=== PATIENT | female | born 1955 | race Caucasian/White ===

== ENCOUNTER → 2016-12-15 | Outpatient (CLI) | payer MEDICAID ==
[~2016-12-15] MED LIST: ADENOSINE 103 MG in GIVE UN-DILUTED 0 ML IV ONE; ADENOSINE 90 MG/30 ML INJ IV ONE
== END | disposition home or self-care (01) ==
LOC: Rad HDHVI 10:05
PROVIDERS: ATTEND Internal Medicine Cardiovascular Disease
DX: I10 Essential (primary) hypertension (principal); E78.00 Pure hypercholesterolemia, unspecified; Z95.0 Presence of cardiac pacemaker
CPT/HCPCS: 78452; 93005; 96374; 96375; A9500; J0153

== ENCOUNTER → 2016-12-31 | Outpatient (CLI) | payer MEDICAID | END | disposition home or self-care (01) | LOC: Rad HDHVI 08:39 | PROVIDERS: ATTEND Internal Medicine Cardiovascular Disease | DX: I73.9 Peripheral vascular disease, unspecified (principal); L03.119 Cellulitis of unspecified part of limb | CPT/HCPCS: 93306; 93926 ==

== ENCOUNTER → 2017-09-29 | Outpatient (CLI) | payer MEDICAID ==
[~2017-09-29] MED LIST changes: -ADENOSINE 103 MG in GIVE UN-DILUTED 0 ML IV ONE; -ADENOSINE 90 MG/30 ML INJ IV ONE; +ATEN-60 PO; +ATOR20TA PO; +BUSP10TA90 PO; +CARB200T PO; +ESOM20CA PO; +FURO40TA PO; +POTA10TA51 PO
== END | disposition home or self-care (01) ==
LOC: Rad HDHVI 10:15
PROVIDERS: ATTEND Internal Medicine Cardiovascular Disease
DX: I50.9 Heart failure, unspecified (principal)
CPT/HCPCS: 93306

== ENCOUNTER 2017-10-20 11:43 | Inpatient (IN) | payer MEDICAID ==
[~2017-10-20] VITALS: Ht 160 cm; Wt 121.0 kg
[2017-10-20 14:01] LABS: Basophils # (auto) 0.1 uL; Basophils % (auto) 1.1 % (0.0-2.0); Eosinophils # (auto) 0.3 uL; Hematocrit 42.7 % (36.0-46.0); Hemoglobin 13.9 g/dL (12.2-16.2); Lymphocytes # (auto) 2.3 uL; Lymphocytes % (auto) 22.2 % (10.0-50.0); Mean Corpuscular Hgb Conc. 32.5 g/dL (32.0-36.0); Mean Corpuscular Volume 92.1 fL (80.0-100.0); Monocytes % (auto) 9.5 % (0.0-12.0); Neutrophils # (auto) 6.7 uL; Neutrophils % (auto) 64.2 % (37.0-80.0); Nucleated Red Blood Cells % 0.1 %; Platelet Count (auto) 337 10^3/uL (140-450); Red Blood Cells 4.63 10^6/uL (4.0-5.20); Red Cell Distribution Width 15.3 % (11.8-14.3); White Blood Cell 10.5 10^3/uL (4.4-10.8)
[2017-10-20 14:13] LABS: Alanine Aminotransferase 21 U/L (13-56); Albumin 3.2 g/dL (3.4-5.0); Anion Gap 9 (5-15); Aspartate Aminotransferase 11 U/L (15-37); BUN/Creatinine Ratio 21.6; Blood Urea Nitrogen 27 mg/dL (7-18); Calcium 8.8 mg/dL (8.5-10.1); Carbon Dioxide 28 mmol/L (21-32); Chloride 105 mmol/L (98-107); GFR African American 55 mL/min; GFR Non-African American 46 mL/min; Glucose 96 mg/dL (74-106); Magnesium 2.4 mg/dL (1.6-2.6); Potassium 4.7 mmol/L (3.5-5.1); Sodium 142 mmol/L (136-145)
[2017-10-20 14:16] LABS: Alkaline Phosphatase 110 U/L (45-117); Bilirubin, Total 0.2 mg/dL (0.2-1.0); Total Protein 8.1 g/dL (6.4-8.2)
[2017-10-20] MEDS ORDERED: PIPERACILLIN-TAZOB 3.375GM 50 ML IV ONE (15:00)
[2017-10-20] MEDS ORDERED: CLINDAMYCIN 900MG IV 50 ML IV ONE (15:00)
[2017-10-20] MEDS ORDERED: FUROSEMIDE 40 MG/4 ML VIAL IV ONE (15:00)
[2017-10-20 15:22] LABS: Urine Bacteria MOD /hpf (None Seen); Urine Blood Negative /uL (Negative); Urine Mucus FEW (None Seen); Urine Specific Gravity 1.026 (1.001-1.035); Urine WBC 1 /hpf (0 - 5)
[2017-10-20] MEDS ORDERED: NITROGLYCERIN 0.4 MG SL TAB SL PRN (15:45)
[2017-10-20] MEDS ORDERED: MORPHINE SULFATE 4 MG/ML SYR/VIAL IV PRN ×2 (15:45)
[2017-10-20] MEDS ORDERED: PANTOPRAZOLE 40 MG TAB PO ONE ×2 (16:00→16:24)
[2017-10-20] MEDS: ONDANSETRON HCL 4 MG/2 ML VIAL IV PRN (16:12)
[2017-10-20] MEDS: FUROSEMIDE 40 MG/4 ML VIAL IV SCH (16:15)
[2017-10-20 21:16] VITALS: BP 84/47
[2017-10-20] MEDS ORDERED: PNEUMOCOCCAL VACC POLYS 25 MCG/0.5 ML VIAL IM ONE (21:30)
[2017-10-20] MEDS: ceFAZolin 1GM/50ML 50 ML IV SCH (21:37)
[2017-10-20] MEDS: busPIRone HCL 10 MG TAB PO SCH (21:38)
[2017-10-20] MEDS: POTASSIUM CHL 20 Meq TABLET PO SCH (21:38)
[2017-10-20] MEDS: carBAMazepine 200 MG TAB PO SCH (21:38)
[2017-10-20 22:00] VITALS: BP 84/47
[2017-10-20] MEDS ORDERED: busPIRone HCL 10 MG TAB PO SCH (22:00)
[2017-10-20] MEDS ORDERED: ATOR20TA PO (23:09)
[2017-10-20] MEDS ORDERED: POTA10TA51 PO (23:09)
[2017-10-20] MEDS ORDERED: ESOM20CA PO (23:09)
[2017-10-20] MEDS ORDERED: ATEN-60 PO (23:09)
[2017-10-20] MEDS ORDERED: CARB200T PO (23:09)
[2017-10-20] MEDS ORDERED: BUSP10TA90 PO (23:09)
[2017-10-20] MEDS ORDERED: FURO40TA PO (23:09)
[2017-10-21] MEDS: ceFAZolin 1GM/50ML 50 ML IV SCH ×3 (05:44→22:00)
[2017-10-21] MEDS: busPIRone HCL 10 MG TAB PO SCH ×3 (05:45→22:04)
[2017-10-21] MEDS: carBAMazepine 200 MG TAB PO SCH ×3 (05:45→22:05)
[2017-10-21] MEDS: FUROSEMIDE 40 MG/4 ML VIAL IV SCH ×2 (05:47→18:40)
[2017-10-21 05:49] VITALS: BP 113/59
[2017-10-21 06:42] LABS: Calcium 8.7 mg/dL (8.5-10.1); Potassium 4.5 mmol/L (3.5-5.1)
[2017-10-21 06:49] LABS: Cholesterol 151 mg/dL (< 200); HDL Cholesterol 62 mg/dL (40-59); LDL Cholesterol 79 mg/dL (< 100); Triglycerides 150 mg/dL (< 150)
[2017-10-21 09:00] VITALS: BP 97/62
[2017-10-21] MEDS: POTASSIUM CHL 20 Meq TABLET PO SCH ×2 (10:18→22:05)
[2017-10-21] MEDS: PANTOPRAZOLE 40 MG TAB PO SCH (10:18)
[2017-10-21] MEDS: ENOXAPARIN SOD 40 MG/0.4 ML SYRINGE SC SCH (10:20)
[2017-10-21 12:54] VITALS: BP 112/69
[2017-10-21 17:01] VITALS: BP 130/63
[2017-10-21] MEDS: FUROSEMIDE INJECTION 500 MG in D5W 5% 450 ML IV SCH (21:00)
[2017-10-21 22:00] VITALS: BP 137/70
[2017-10-21] MEDS: ONDANSETRON HCL 4 MG/2 ML VIAL IV PRN (22:04)
[2017-10-21 23:15] VITALS: BP 125/74
[2017-10-22] VITALS (9 sets, daily range): BP systolic 104–127; BP diastolic 63–76
[2017-10-22] MEDS: ceFAZolin 1GM/50ML 50 ML IV SCH ×3 (06:04→21:39)
[2017-10-22] MEDS: carBAMazepine 200 MG TAB PO SCH ×3 (06:06→21:40)
[2017-10-22] MEDS: busPIRone HCL 10 MG TAB PO SCH ×3 (06:06→21:40)
[2017-10-22] MEDS: PANTOPRAZOLE 40 MG TAB PO SCH (06:11)
[2017-10-22 06:44] LABS: BUN/Creatinine Ratio 29.7; Calcium 9.1 mg/dL (8.5-10.1); Potassium 3.6 mmol/L (3.5-5.1)
[2017-10-22] MEDS: ENOXAPARIN SOD 40 MG/0.4 ML SYRINGE SC SCH (09:42)
[2017-10-22] MEDS: POTASSIUM CHL 20 Meq TABLET PO SCH ×2 (09:42→21:40)
[2017-10-22] MEDS: FUROSEMIDE INJECTION 500 MG in D5W 5% 450 ML IV SCH (19:30)
[2017-10-22] MEDS: ASCORBIC ACID 500 MG TAB PO SCH (21:39)
[2017-10-23 04:51] VITALS: BP 116/67
[2017-10-23] MEDS: ceFAZolin 1GM/50ML 50 ML IV SCH ×3 (05:56→20:12)
[2017-10-23] MEDS: busPIRone HCL 10 MG TAB PO SCH ×3 (05:57→20:13)
[2017-10-23] MEDS: carBAMazepine 200 MG TAB PO SCH ×3 (05:57→20:13)
[2017-10-23] MEDS: PANTOPRAZOLE 40 MG TAB PO SCH (06:39)
[2017-10-23 08:14] VITALS: BP 112/78
[2017-10-23] MEDS: MULTIPLE VITAMIN TAB PO SCH (10:19)
[2017-10-23] MEDS: POTASSIUM CHL 20 Meq TABLET PO SCH ×2 (10:20→20:13)
[2017-10-23] MEDS: ASCORBIC ACID 500 MG TAB PO SCH ×2 (10:20→20:13)
[2017-10-23] MEDS: ENOXAPARIN SOD 40 MG/0.4 ML SYRINGE SC SCH (10:20)
[2017-10-23 11:43] VITALS: BP 125/82
[2017-10-23] MEDS: FUROSEMIDE INJECTION 500 MG in D5W 5% 450 ML IV SCH (15:30)
[2017-10-23 17:06] VITALS: BP 127/72
[2017-10-23] MEDS ORDERED: FUROSEMIDE 40 MG/4 ML VIAL IV SCH (18:00)
[2017-10-23] MEDS: HYDROcodone-ACET 5/325MG TAB PO PRN (21:04)
[2017-10-23 21:57] VITALS: BP 125/84
[2017-10-24] MEDS: HYDROcodone-ACET 5/325MG TAB PO PRN (04:22)
[2017-10-24] MEDS: ceFAZolin 1GM/50ML 50 ML IV SCH ×3 (04:23→21:44)
[2017-10-24 05:19] VITALS: BP 129/72
[2017-10-24] MEDS: busPIRone HCL 10 MG TAB PO SCH ×3 (05:51→21:44)
[2017-10-24] MEDS: PANTOPRAZOLE 40 MG TAB PO SCH (05:52)
[2017-10-24] MEDS: carBAMazepine 200 MG TAB PO SCH ×3 (05:52→21:44)
[2017-10-24 06:21] LABS: BUN/Creatinine Ratio 30.2; Calcium 8.6 mg/dL (8.5-10.1); Potassium 3.3 mmol/L (3.5-5.1)
[2017-10-24 09:00] VITALS: BP 122/66
[2017-10-24] MEDS: POTASSIUM CHL 20 Meq TABLET PO SCH ×2 (09:58→21:44)
[2017-10-24] MEDS: ENOXAPARIN SOD 40 MG/0.4 ML SYRINGE SC SCH (09:58)
[2017-10-24] MEDS: MULTIPLE VITAMIN TAB PO SCH (09:58)
[2017-10-24] MEDS: ASCORBIC ACID 500 MG TAB PO SCH ×2 (09:58→21:44)
[2017-10-24 13:00] VITALS: BP 124/73
[2017-10-24] MEDS ORDERED: POTASSIUM CHL 20 Meq TABLET PO ONE (14:15)
[2017-10-24] MEDS: FUROSEMIDE INJECTION 500 MG in D5W 5% 450 ML IV SCH (16:02)
[2017-10-24 17:00] VITALS: BP 125/50
[2017-10-24 20:00] VITALS: BP 106/48
[2017-10-24 21:48] VITALS: BP 106/48
[2017-10-25] MEDS: HYDROcodone-ACET 5/325MG TAB PO PRN (00:19)
[2017-10-25 05:27] VITALS: BP 123/83
[2017-10-25 05:42] LABS: BUN/Creatinine Ratio 34.6; Calcium 8.4 mg/dL (8.5-10.1); Potassium 4.1 mmol/L (3.5-5.1)
[2017-10-25] MEDS: ceFAZolin 1GM/50ML 50 ML IV SCH ×3 (05:43→21:23)
[2017-10-25] MEDS: carBAMazepine 200 MG TAB PO SCH ×3 (05:43→21:24)
[2017-10-25] MEDS: busPIRone HCL 10 MG TAB PO SCH ×3 (05:44→21:23)
[2017-10-25 09:00] VITALS: BP 114/49
[2017-10-25 09:16] LABS: Basophils # (auto) 0.1 uL; Eosinophils # (auto) 0.4 uL; Eosinophils % (auto) 4.7 % (0.0-7.0); Hematocrit 41.4 % (36.0-46.0); Hemoglobin 13.8 g/dL (12.2-16.2); Lymphocytes # (auto) 2.1 uL; Lymphocytes % (auto) 21.6 % (10.0-50.0); Mean Corpuscular Hemoglobin 30.2 pg (28.0-32.0); Mean Corpuscular Hgb Conc. 33.5 g/dL (32.0-36.0); Mean Corpuscular Volume 90.4 fL (80.0-100.0); Monocytes # (auto) 1.4 uL; Monocytes % (auto) 14.7 % (0.0-12.0); Neutrophils # (auto) 5.5 uL; Nucleated Red Blood Cells % 0.6 %; Platelet Count (auto) 383 10^3/uL (140-450); Red Blood Cells 4.58 10^6/uL (4.0-5.20); Red Cell Distribution Width 15.2 % (11.8-14.3); White Blood Cell 9.5 10^3/uL (4.4-10.8)
[2017-10-25] MEDS: MULTIPLE VITAMIN TAB PO SCH (10:42)
[2017-10-25] MEDS: POTASSIUM CHL 20 Meq TABLET PO SCH ×2 (10:42→21:23)
[2017-10-25] MEDS: ASCORBIC ACID 500 MG TAB PO SCH ×2 (10:42→21:24)
[2017-10-25] MEDS: ENOXAPARIN SOD 40 MG/0.4 ML SYRINGE SC SCH (10:42)
[2017-10-25] MEDS: PANTOPRAZOLE 40 MG TAB PO SCH (10:42)
[2017-10-25 13:00] VITALS: BP 135/70
[2017-10-25 17:00] VITALS: BP_SYST 127; BP_SYST 83; BP_DIAS 60; BP_DIAS 77
[2017-10-25] MEDS: FUROSEMIDE INJECTION 500 MG in D5W 5% 450 ML IV SCH (18:09)
[2017-10-25 20:00] VITALS: BP 137/61
[2017-10-25 22:00] VITALS: BP 137/61
[2017-10-26 05:19] VITALS: BP 107/53
[2017-10-26] MEDS: ceFAZolin 1GM/50ML 50 ML IV SCH ×3 (06:15→21:19)
[2017-10-26] MEDS: carBAMazepine 200 MG TAB PO SCH ×3 (06:15→21:18)
[2017-10-26] MEDS: busPIRone HCL 10 MG TAB PO SCH ×3 (06:16→21:19)
[2017-10-26 07:55] LABS: BUN/Creatinine Ratio 33.1; Calcium 8.5 mg/dL (8.5-10.1)
[2017-10-26 09:00] VITALS: BP 124/57
[2017-10-26] MEDS: METOLAZONE 5 MG TAB PO SCH (11:30)
[2017-10-26] MEDS: ENOXAPARIN SOD 40 MG/0.4 ML SYRINGE SC SCH (11:30)
[2017-10-26] MEDS: POTASSIUM CHL 20 Meq TABLET PO SCH ×2 (11:30→21:19)
[2017-10-26] MEDS: ASCORBIC ACID 500 MG TAB PO SCH ×2 (11:30→21:18)
[2017-10-26] MEDS: PANTOPRAZOLE 40 MG TAB PO SCH (11:30)
[2017-10-26] MEDS: MULTIPLE VITAMIN TAB PO SCH (11:30)
[2017-10-26 13:00] VITALS: BP 142/70
[2017-10-26 17:00] VITALS: BP 106/48
[2017-10-26] MEDS ORDERED: POTASSIUM CHL 20 Meq TABLET PO ONE (19:00)
[2017-10-26] MEDS: FUROSEMIDE INJECTION 500 MG in D5W 5% 450 ML IV SCH (19:30)
[2017-10-26 20:00] VITALS: BP 126/36
[2017-10-26 22:00] VITALS: BP_SYST 126; BP_DIAS 36; BP_DIAS 96
[2017-10-27] MEDS: ceFAZolin 1GM/50ML 50 ML IV SCH (05:29)
[2017-10-27] MEDS: busPIRone HCL 10 MG TAB PO SCH (05:30)
[2017-10-27] MEDS: carBAMazepine 200 MG TAB PO SCH (05:30)
[2017-10-27 05:39] VITALS: BP 127/83
[2017-10-27 05:50] LABS: Calcium 9.1 mg/dL (8.5-10.1)
[2017-10-27 05:54] LABS: BUN/Creatinine Ratio 32.9
[2017-10-27] MEDS ORDERED: POTASSIUM CHL 20 Meq TABLET PO ONE ×3 (07:00→10:00)
[2017-10-27 07:54] VITALS: BP 92/42
[2017-10-27 09:25] LABS: BUN/Creatinine Ratio 29.1; Calcium 9.7 mg/dL (8.5-10.1); Potassium 3.2 mmol/L (3.5-5.1)
[2017-10-27] MEDS: METOLAZONE 5 MG TAB PO SCH (10:00)
[2017-10-27] MEDS: PANTOPRAZOLE 40 MG TAB PO SCH (10:00)
[2017-10-27] MEDS: ENOXAPARIN SOD 40 MG/0.4 ML SYRINGE SC SCH (10:00)
[2017-10-27] MEDS: POTASSIUM CHL 20 Meq TABLET PO SCH (10:29)
[2017-10-27] MEDS: ASCORBIC ACID 500 MG TAB PO SCH (10:37)
[2017-10-27] MEDS: MULTIPLE VITAMIN TAB PO SCH (10:37)
[2017-10-27 11:38] VITALS: BP 111/80
== END 2017-10-27 16:16 | disposition home or self-care (01) | DRG 194 ==
LOC: ER 11:43 → TELE 11:44 → TELE-WESTW 20:50
PROVIDERS: ADMIT Internal Medicine; ATTEND Internal Medicine Cardiovascular Disease
DX: I13.0 Hypertensive heart and chronic kidney disease with heart failure and stage 1 through stage 4 chronic kidney disease, or unspecified chronic kidney disease (principal); I27.81 Cor pulmonale (chronic); L03.115 Cellulitis of right lower limb; N18.3 Chronic kidney disease, stage 3 (moderate); L03.116 Cellulitis of left lower limb; L97.909 Non-pressure chronic ulcer of unspecified part of unspecified lower leg with unspecified severity; E66.01 Morbid (severe) obesity due to excess calories; I50.33 Acute on chronic diastolic (congestive) heart failure; K21.9 Gastro-esophageal reflux disease without esophagitis; F31.9 Bipolar disorder, unspecified; I50.810 Right heart failure, unspecified; E87.6 Hypokalemia; I87.2 Venous insufficiency (chronic) (peripheral); Z60.2 Problems related to living alone; G47.30 Sleep apnea, unspecified; Z23 Encounter for immunization; Z68.42 Body mass index [BMI] 45.0-49.9, adult; Z95.0 Presence of cardiac pacemaker; Z88.2 Allergy status to sulfonamides; Z90.49 Acquired absence of other specified parts of digestive tract
CPT/HCPCS: 36415; 71046; 80048; 80053; 80061; 81001; 83605; 83735; 84132; 84443; 84484; 85025; 87040; 93005; 93970; 96365; 96367; 96375; J0690; J2405; J2543; J3490

== ENCOUNTER → 2018-06-03 | Outpatient (CLI) | payer MEDICAID | END | disposition home or self-care (01) | LOC: Rad HDHVI 10:49 | PROVIDERS: ATTEND Internal Medicine Cardiovascular Disease | DX: I07.1 Rheumatic tricuspid insufficiency (principal); I10 Essential (primary) hypertension; I95.9 Hypotension, unspecified; R06.02 Shortness of breath; Z88.2 Allergy status to sulfonamides | CPT/HCPCS: 93306 ==

== ENCOUNTER → 2018-07-22 | Outpatient (CLI) | payer MEDICARE, MEDICAID ==
[2018-07-22] VITALS (12 sets, daily range): BP systolic 95–126; BP diastolic 41–78
[~2018-07-22] VITALS: Ht 165.1 cm; Wt 123.5 kg
[~2018-07-22] MED LIST changes: +DOBUTamine 1000MCG/ML 250 ML IV ONE; +FUROSEMIDE 100 MG/10ML VIAL IV ONE; +FUROSEMIDE INJECTION 10 ML ONE; +KETOROLAC TROMETH 30 MG/ML 1ML VIAL IM ONE; +KETOROLAC TROMETH 30 MG/ML 1ML VIAL IV ONE; +KETOROLAC TROMETH 60MG/2ML VIAL IM ONE; +POTASSIUM CHL 10 Meq TABLET PO ONE; +POTASSIUM CHL 20 Meq TABLET PO ONE
[2018-07-22 11:57] LABS: Basophils # (auto) 0.1 uL; Basophils % (auto) 0.7 % (0.0-2.0); Eosinophils # (auto) 0.3 uL; Hematocrit 40.1 % (36.0-46.0); Hemoglobin 13.1 g/dL (12.2-16.2); Lymphocytes # (auto) 2.1 uL; Lymphocytes % (auto) 21.2 % (10.0-50.0); Mean Corpuscular Hgb Conc. 32.6 g/dL (32.0-36.0); Mean Corpuscular Volume 95.1 fL (80.0-100.0); Monocytes # (auto) 0.8 uL; Monocytes % (auto) 7.7 % (0.0-12.0); Neutrophils # (auto) 6.7 uL; Neutrophils % (auto) 67.4 % (37.0-80.0); Nucleated Red Blood Cells % 0.1 %; Platelet Count (auto) 352 10^3/uL (140-450); Red Blood Cells 4.22 10^6/uL (4.0-5.20); Red Cell Distribution Width 14.4 % (11.8-14.3); White Blood Cell 9.9 10^3/uL (4.4-10.8)
[2018-07-22 12:12] LABS: Albumin 3.1 g/dL (3.4-5.0); Calcium 8.5 mg/dL (8.5-10.1); Potassium 4.6 mmol/L (3.5-5.1)
[2018-07-22 12:16] LABS: BUN/Creatinine Ratio 18.4; Bilirubin, Total 0.3 mg/dL (0.2-1.0); Total Protein 8.7 g/dL (6.4-8.2)
== END | disposition home or self-care (01) ==
LOC: CHF HDHVI 09:19
PROVIDERS: ATTEND Internal Medicine Cardiovascular Disease
DX: I11.0 Hypertensive heart disease with heart failure (principal); I50.23 Acute on chronic systolic (congestive) heart failure; D51.9 Vitamin B12 deficiency anemia, unspecified; E83.40 Disorders of magnesium metabolism, unspecified; I07.1 Rheumatic tricuspid insufficiency; Z88.2 Allergy status to sulfonamides
CPT/HCPCS: 36415; 80053; 82306; 83735; 83880; 85025; 93701; 94618; 96365; 96366; 96372; 96375; G0463; J1250; J1885; J1940

== ENCOUNTER → 2018-07-29 | Outpatient (CLI) | payer MEDICARE, MEDICAID ==
[2018-07-29] VITALS (8 sets, daily range): BP systolic 91–130; BP diastolic 43–106
[~2018-07-29] MED LIST changes: -KETOROLAC TROMETH 30 MG/ML 1ML VIAL IM ONE; -KETOROLAC TROMETH 30 MG/ML 1ML VIAL IV ONE; -KETOROLAC TROMETH 60MG/2ML VIAL IM ONE
== END | disposition home or self-care (01) ==
LOC: CHF HDHVI 09:10
PROVIDERS: ATTEND Internal Medicine Cardiovascular Disease
DX: S80.822A Blister (nonthermal), left lower leg, initial encounter (principal); I25.10 Atherosclerotic heart disease of native coronary artery without angina pectoris; I13.0 Hypertensive heart and chronic kidney disease with heart failure and stage 1 through stage 4 chronic kidney disease, or unspecified chronic kidney disease; E11.22 Type 2 diabetes mellitus with diabetic chronic kidney disease; I50.42 Chronic combined systolic (congestive) and diastolic (congestive) heart failure; N18.3 Chronic kidney disease, stage 3 (moderate); E11.51 Type 2 diabetes mellitus with diabetic peripheral angiopathy without gangrene; F31.9 Bipolar disorder, unspecified; K21.9 Gastro-esophageal reflux disease without esophagitis; E78.00 Pure hypercholesterolemia, unspecified; I87.2 Venous insufficiency (chronic) (peripheral); Y93.89 Activity, other specified; Y92.89 Other specified places as the place of occurrence of the external cause; X58.XXXA Exposure to other specified factors, initial encounter
CPT/HCPCS: 96365; 96366; 96375; 96376; G0463; J1250; J1940

== ENCOUNTER → 2018-08-02 | Outpatient (CLI) | payer MEDICARE, MEDICAID ==
[~2018-08-02] MED LIST changes: -POTASSIUM CHL 10 Meq TABLET PO ONE
[2018-08-02 11:45] VITALS: BP 88/55
[2018-08-02 12:00] VITALS: BP 101/60
[2018-08-02 14:30] VITALS: BP 129/61
== END | disposition home or self-care (01) ==
LOC: CHF HDHVI 10:52
PROVIDERS: ATTEND Internal Medicine Cardiovascular Disease
DX: S80.822A Blister (nonthermal), left lower leg, initial encounter (principal); I25.10 Atherosclerotic heart disease of native coronary artery without angina pectoris; I13.0 Hypertensive heart and chronic kidney disease with heart failure and stage 1 through stage 4 chronic kidney disease, or unspecified chronic kidney disease; E11.22 Type 2 diabetes mellitus with diabetic chronic kidney disease; N18.3 Chronic kidney disease, stage 3 (moderate); I50.42 Chronic combined systolic (congestive) and diastolic (congestive) heart failure; G47.30 Sleep apnea, unspecified; E11.51 Type 2 diabetes mellitus with diabetic peripheral angiopathy without gangrene; E66.01 Morbid (severe) obesity due to excess calories; K21.9 Gastro-esophageal reflux disease without esophagitis; E78.00 Pure hypercholesterolemia, unspecified; F31.9 Bipolar disorder, unspecified; X58.XXXA Exposure to other specified factors, initial encounter; Y93.89 Activity, other specified; Y92.89 Other specified places as the place of occurrence of the external cause; Y99.8 Other external cause status; Z95.0 Presence of cardiac pacemaker
CPT/HCPCS: 96365; 96366; 96375; 96376; G0463; J1250; J1940

== ENCOUNTER → 2018-08-12 | Outpatient (CLI) | payer MEDICARE, MEDICAID ==
[2018-08-12] VITALS (7 sets, daily range): BP systolic 97–118; BP diastolic 40–60
[~2018-08-12] MED LIST changes: +ALBUTEROL SULF 2.5 MG/0.5ML(0.5%) NEB SOLN NEB ONE; +ALBUTEROL SULF 2.5 MG/0.5ML(0.5%) NEB SOLN ONE; -FUROSEMIDE 100 MG/10ML VIAL IV ONE; +FUROSEMIDE 40 MG/4 ML VIAL IV ONE; -POTASSIUM CHL 20 Meq TABLET PO ONE
[2018-08-12 12:32] LABS: Basophils # (auto) 0 uL; Basophils % (auto) 0.5 % (0.0-2.0); Eosinophils # (auto) 0.5 uL; Hematocrit 41.2 % (36.0-46.0); Hemoglobin 13.4 g/dL (12.2-16.2); Lymphocytes # (auto) 1.8 uL; Lymphocytes % (auto) 18.9 % (10.0-50.0); Mean Corpuscular Hemoglobin 31.2 pg (28.0-32.0); Mean Corpuscular Hgb Conc. 32.6 g/dL (32.0-36.0); Mean Corpuscular Volume 95.8 fL (80.0-100.0); Monocytes # (auto) 0.9 uL; Monocytes % (auto) 9.3 % (0.0-12.0); Neutrophils # (auto) 6.2 uL; Neutrophils % (auto) 66.3 % (37.0-80.0); Nucleated Red Blood Cells % 0.2 %; Platelet Count (auto) 308 10^3/uL (140-450); Red Blood Cells 4.31 10^6/uL (4.0-5.20); Red Cell Distribution Width 14.2 % (11.8-14.3); White Blood Cell 9.4 10^3/uL (4.4-10.8)
[2018-08-12 12:48] LABS: BUN/Creatinine Ratio 16.8; Calcium 8.5 mg/dL (8.5-10.1); Magnesium 2.2 mg/dL (1.6-2.6); Potassium 4.1 mmol/L (3.5-5.1)
== END | disposition home or self-care (01) ==
LOC: CHF HDHVI 09:20
PROVIDERS: ATTEND Internal Medicine Cardiovascular Disease
DX: I13.0 Hypertensive heart and chronic kidney disease with heart failure and stage 1 through stage 4 chronic kidney disease, or unspecified chronic kidney disease (principal); I50.42 Chronic combined systolic (congestive) and diastolic (congestive) heart failure; I50.810 Right heart failure, unspecified; E11.22 Type 2 diabetes mellitus with diabetic chronic kidney disease; E11.51 Type 2 diabetes mellitus with diabetic peripheral angiopathy without gangrene; N18.3 Chronic kidney disease, stage 3 (moderate); I25.10 Atherosclerotic heart disease of native coronary artery without angina pectoris; E78.00 Pure hypercholesterolemia, unspecified; E66.01 Morbid (severe) obesity due to excess calories; G47.30 Sleep apnea, unspecified; I07.1 Rheumatic tricuspid insufficiency; I89.0 Lymphedema, not elsewhere classified; I87.2 Venous insufficiency (chronic) (peripheral); K21.9 Gastro-esophageal reflux disease without esophagitis; D64.9 Anemia, unspecified; E55.9 Vitamin D deficiency, unspecified; F31.9 Bipolar disorder, unspecified; Z95.0 Presence of cardiac pacemaker
CPT/HCPCS: 36415; 80048; 82306; 83735; 85025; 94640; 96365; 96366; 96375; G0463; J1250; J1940; J7611

== ENCOUNTER → 2018-08-19 | Outpatient (CLI) | payer MEDICARE, MEDICAID ==
[~2018-08-19] VITALS: Ht 30.5 cm; Wt 122.0 kg
[~2018-08-19] MED LIST changes: -ALBUTEROL SULF 2.5 MG/0.5ML(0.5%) NEB SOLN NEB ONE; -ALBUTEROL SULF 2.5 MG/0.5ML(0.5%) NEB SOLN ONE; +FUROSEMIDE 20 MG/2 ML VIAL IV ONE; +FUROSEMIDE 20 MG/2 ML VIAL ONE; -FUROSEMIDE 40 MG/4 ML VIAL IV ONE; +FUROSEMIDE 40 MG/4 ML VIAL ONE; -FUROSEMIDE INJECTION 10 ML ONE; +POTASSIUM CHL 10 Meq TABLET PO ONE
[2018-08-19 09:45] VITALS: BP 125/67
[2018-08-19 11:00] VITALS: BP 98/44
[2018-08-19 11:30] VITALS: BP 101/56
[2018-08-19 12:00] VITALS: BP 117/58
[2018-08-19 12:20] LABS: Basophils # (auto) 0.1 uL; Basophils % (auto) 0.7 % (0.0-2.0); Eosinophils # (auto) 0.3 uL; Hematocrit 41.4 % (36.0-46.0); Hemoglobin 13.6 g/dL (12.2-16.2); Lymphocytes # (auto) 2.1 uL; Lymphocytes % (auto) 20.6 % (10.0-50.0); Mean Corpuscular Hemoglobin 31.3 pg (28.0-32.0); Mean Corpuscular Hgb Conc. 32.9 g/dL (32.0-36.0); Mean Corpuscular Volume 95.3 fL (80.0-100.0); Monocytes # (auto) 1.2 uL; Monocytes % (auto) 11.7 % (0.0-12.0); Neutrophils # (auto) 6.5 uL; Nucleated Red Blood Cells % 0.4 %; Platelet Count (auto) 311 10^3/uL (140-450); Red Blood Cells 4.34 10^6/uL (4.0-5.20); Red Cell Distribution Width 13.9 % (11.8-14.3); White Blood Cell 10.2 10^3/uL (4.4-10.8)
[2018-08-19 12:30] VITALS: BP 97/51
[2018-08-19 12:40] VITALS: BP 97/51
[2018-08-19 12:41] LABS: BUN/Creatinine Ratio 27.4
== END | disposition home or self-care (01) ==
LOC: CHF HDHVI 09:32
PROVIDERS: ATTEND Internal Medicine Cardiovascular Disease
DX: I13.0 Hypertensive heart and chronic kidney disease with heart failure and stage 1 through stage 4 chronic kidney disease, or unspecified chronic kidney disease (principal); I50.42 Chronic combined systolic (congestive) and diastolic (congestive) heart failure; I50.810 Right heart failure, unspecified; E11.22 Type 2 diabetes mellitus with diabetic chronic kidney disease; E11.51 Type 2 diabetes mellitus with diabetic peripheral angiopathy without gangrene; N18.3 Chronic kidney disease, stage 3 (moderate); I49.5 Sick sinus syndrome; I25.10 Atherosclerotic heart disease of native coronary artery without angina pectoris; E78.00 Pure hypercholesterolemia, unspecified; I27.81 Cor pulmonale (chronic); I87.2 Venous insufficiency (chronic) (peripheral); G47.30 Sleep apnea, unspecified; I07.1 Rheumatic tricuspid insufficiency; E66.01 Morbid (severe) obesity due to excess calories; K21.9 Gastro-esophageal reflux disease without esophagitis; D64.9 Anemia, unspecified; F31.9 Bipolar disorder, unspecified; Z90.49 Acquired absence of other specified parts of digestive tract; Z95.0 Presence of cardiac pacemaker
CPT/HCPCS: 36415; 80048; 83880; 85025; 96365; 96366; 96375; G0463; J1250; J1940

== ENCOUNTER → 2018-08-26 | Outpatient (CLI) | payer MEDICARE, MEDICAID ==
[~2018-08-26] MED LIST changes: -FUROSEMIDE 20 MG/2 ML VIAL IV ONE; +FUROSEMIDE 20 MG/2 ML VIAL IV SCH; +POTASSIUM CHL 20 Meq TABLET PO ONE
[2018-08-26 10:15] VITALS: BP 139/67
[2018-08-26 10:30] VITALS: BP 119/52
[2018-08-26 10:45] VITALS: BP 114/48
[2018-08-26 11:45] VITALS: BP 134/78
== END | disposition home or self-care (01) ==
LOC: CHF HDHVI 09:31
PROVIDERS: ATTEND Internal Medicine Cardiovascular Disease
DX: I13.0 Hypertensive heart and chronic kidney disease with heart failure and stage 1 through stage 4 chronic kidney disease, or unspecified chronic kidney disease (principal); E11.22 Type 2 diabetes mellitus with diabetic chronic kidney disease; E11.51 Type 2 diabetes mellitus with diabetic peripheral angiopathy without gangrene; N18.3 Chronic kidney disease, stage 3 (moderate); I50.42 Chronic combined systolic (congestive) and diastolic (congestive) heart failure; I25.10 Atherosclerotic heart disease of native coronary artery without angina pectoris; F31.9 Bipolar disorder, unspecified; E66.01 Morbid (severe) obesity due to excess calories; E78.00 Pure hypercholesterolemia, unspecified; K21.9 Gastro-esophageal reflux disease without esophagitis; Z95.0 Presence of cardiac pacemaker; Z90.49 Acquired absence of other specified parts of digestive tract
CPT/HCPCS: 96365; 96366; 96375; G0463; J1250; J1940

== ENCOUNTER → 2018-09-02 | Outpatient (CLI) | payer MEDICARE, MEDICAID ==
[2018-09-02] VITALS (8 sets, daily range): BP systolic 90–119; BP diastolic 36–57
[~2018-09-02] MED LIST changes: +FUROSEMIDE 20 MG/2 ML VIAL IV ONE; -FUROSEMIDE 20 MG/2 ML VIAL IV SCH
--- NOTE | 2018-09-02 09:20 | NUR ---
CHF PT TO CHF CLINIC FOR MD LI ORDERED DOBUTAMINE THERAPY.
--- NOTE | 2018-09-02 09:30 | NUR ---
CHF IV insertion IV access obtained, via clean sterile technique by inserting 22 gauge catheter at after attempt(s). IV secured properly. No trauma to site. Patient tolerated procedure well.Clinic Provider Clinic Provider DR. LI, pt with new orders received and carried out. DRAW BNP, BUN,CREAT, K, MAG. Dobutamine gtt started at {4}mcg/kg/hr per MD order.
--- NOTE | 2018-09-02 11:55 | NUR ---
LASIX IVP ADMINISTERED. PT HAS BEEN TOLERATING IV DOBUTAMINE WELL. SHE REQUESTS TO STOP TREATMENT/INFUSION. DISCUSSED OPTIONS AND NEED FOR HEALTH INTERVENTION, ENCOURAGED TO COMPLETE INTERVENTION ORDERED BY THE PHYSICIAN. REVIEWED STATUS WITH PATIENT. SHE REBUFFS AGAINST SUGGESTION, BUT DOES AGREEE THAT SHE NEEDS HEALTH INTERVENTION. PT AGREED TO WAIT UNTIL HER RIDE ARRIVES BEFORE TREATMENT IS COMPLETED VS OBTAINED. DIET REVIEW COMPLERTED WITH ALIE
== END | disposition home or self-care (01) ==
LOC: CHF HDHVI 09:30
PROVIDERS: ATTEND Internal Medicine Cardiovascular Disease
DX: I13.0 Hypertensive heart and chronic kidney disease with heart failure and stage 1 through stage 4 chronic kidney disease, or unspecified chronic kidney disease (principal); I50.42 Chronic combined systolic (congestive) and diastolic (congestive) heart failure; I50.810 Right heart failure, unspecified; I25.10 Atherosclerotic heart disease of native coronary artery without angina pectoris; E11.22 Type 2 diabetes mellitus with diabetic chronic kidney disease; N18.3 Chronic kidney disease, stage 3 (moderate); E11.51 Type 2 diabetes mellitus with diabetic peripheral angiopathy without gangrene; E78.00 Pure hypercholesterolemia, unspecified; I89.0 Lymphedema, not elsewhere classified; E66.01 Morbid (severe) obesity due to excess calories; I87.2 Venous insufficiency (chronic) (peripheral); K21.9 Gastro-esophageal reflux disease without esophagitis; I27.81 Cor pulmonale (chronic); G47.30 Sleep apnea, unspecified; F31.9 Bipolar disorder, unspecified; Z68.42 Body mass index [BMI] 45.0-49.9, adult; Z95.0 Presence of cardiac pacemaker; Z90.49 Acquired absence of other specified parts of digestive tract
CPT/HCPCS: 96365; 96366; 96375; G0463; J1250; J1940

== ENCOUNTER → 2018-09-09 | Outpatient (CLI) | payer MEDICARE, MEDICAID ==
[2018-09-09] VITALS (7 sets, daily range): BP systolic 86–110; BP diastolic 41–53
--- NOTE | 2018-09-09 09:45 | NUR ---
PT. TO CHF CLINIC FOR DOBUTAMINE DRIP PER MD ORDER PT. PRESENTS WITH BILAT. EDWIN BOOTS IN PLACE FROM HOME HEALTH, AND STATING SHE IS FEELING SOMEWHAT BETTER. SEE NSG ASSESS. ORDERS RECEIVED AND CARRIED OUT.
--- NOTE | 2018-09-09 10:00 | NUR ---
IV insertion IV access obtained, via clean sterile technique by inserting 22 gauge catheter at after attempt(s). IV secured properly. No trauma to site. Patient tolerated procedure well.
--- NOTE | 2018-09-09 10:15 | NUR ---
Clinic Provider Clinic Provider into see pt with new orders received and carried out. Dobutamine gtt started at {4}mcg/kg/hr per MD order.
--- NOTE | 2018-09-09 11:45 | NUR ---
CHF DOBUTAMINE DRIP CONTINUES V/S 110/41, 61, 20
--- NOTE | 2018-09-09 13:10 | NUR ---
CHF LASIX 60MG IVP
--- NOTE | 2018-09-09 13:15 | NUR ---
CHF POTASSIUM CHLORIDE 30 MEQ PO ADMINISTERED.
--- NOTE | 2018-09-09 13:45 | NUR ---
CHF IV DOBUTAMINE [id number] 1340. IV removal IV DC'd with sterile technique, catheter fully intact. Pressure dressing applied to site. Patient tolerated procedure well. Discharged with aftercare instructions per MD. NOTE:
== END | disposition home or self-care (01) ==
LOC: CHF HDHVI 09:40
PROVIDERS: ATTEND Internal Medicine Cardiovascular Disease
DX: I13.0 Hypertensive heart and chronic kidney disease with heart failure and stage 1 through stage 4 chronic kidney disease, or unspecified chronic kidney disease (principal); E11.22 Type 2 diabetes mellitus with diabetic chronic kidney disease; I50.42 Chronic combined systolic (congestive) and diastolic (congestive) heart failure; N18.3 Chronic kidney disease, stage 3 (moderate); D64.9 Anemia, unspecified; E66.01 Morbid (severe) obesity due to excess calories; I25.10 Atherosclerotic heart disease of native coronary artery without angina pectoris; E11.51 Type 2 diabetes mellitus with diabetic peripheral angiopathy without gangrene; F31.9 Bipolar disorder, unspecified; K21.9 Gastro-esophageal reflux disease without esophagitis; E78.00 Pure hypercholesterolemia, unspecified; G47.30 Sleep apnea, unspecified; I07.1 Rheumatic tricuspid insufficiency; Z90.49 Acquired absence of other specified parts of digestive tract; Z68.42 Body mass index [BMI] 45.0-49.9, adult; Z95.0 Presence of cardiac pacemaker
CPT/HCPCS: 96365; 96366; 96375; G0463; J1250; J1940

== ENCOUNTER → 2018-10-14 | Outpatient (CLI) | payer MEDICARE, MEDICAID ==
[2018-10-14] VITALS (8 sets, daily range): BP systolic 94–124; BP diastolic 33–58
[~2018-10-14] MED LIST changes: -FUROSEMIDE 20 MG/2 ML VIAL IV ONE; -FUROSEMIDE 20 MG/2 ML VIAL ONE; -POTASSIUM CHL 10 Meq TABLET PO ONE; -POTASSIUM CHL 20 Meq TABLET PO ONE
--- NOTE | 2018-10-14 09:30 | NUR ---
CHF PT TO CHF CLINIC POST HOSPITALIZATION FOR CHF EXAC AT [facility]. PT DOWN 20LB. Clinic Provider Clinic Provider DR. LI pt with new orders received and carried out. DRAW CBC,CMP,VIT B 12, BNP, HGBAIC. Dobutamine gtt started at {4}mcg/kg/hr per MD order.
--- NOTE | 2018-10-14 09:59 | NUR ---
CHF IV insertion IV access obtained, via clean sterile technique by inserting 22 gauge catheter at after attempt(s). IV secured properly. No trauma to site. LASIX IV STARTED. Patient tolerated procedure well.
[2018-10-14 12:16] LABS: Basophils # (auto) 0.1 uL; Basophils % (auto) 0.7 % (0.0-2.0); Eosinophils # (auto) 0.4 uL; Eosinophils % (auto) 4.3 % (0.0-7.0); Hematocrit 41.8 % (36.0-46.0); Lymphocytes # (auto) 1.8 uL; Lymphocytes % (auto) 18.8 % (10.0-50.0); Mean Corpuscular Hemoglobin 30.6 pg (28.0-32.0); Mean Corpuscular Hgb Conc. 33.4 g/dL (32.0-36.0); Mean Corpuscular Volume 91.5 fL (80.0-100.0); Monocytes % (auto) 10.1 % (0.0-12.0); Neutrophils # (auto) 6.2 uL; Neutrophils % (auto) 66.1 % (37.0-80.0); Nucleated Red Blood Cells % 0.1 %; Platelet Count (auto) 338 10^3/uL (140-450); Red Blood Cells 4.56 10^6/uL (4.0-5.20); White Blood Cell 9.4 10^3/uL (4.4-10.8)
[2018-10-14 12:30] LABS: Potassium 4.3 mmol/L (3.5-5.1)
[2018-10-14 12:39] LABS: Albumin 3.2 g/dL (3.4-5.0); BUN/Creatinine Ratio 20.8; Bilirubin, Total 0.2 mg/dL (0.2-1.0); Calcium 8.8 mg/dL (8.5-10.1); Total Protein 8.3 g/dL (6.4-8.2)
--- NOTE | 2018-10-14 13:15 | NUR ---
CHF DOBUTAMINE DRIP COMPLETE 1212. IV removal IV DC'd with sterile technique, catheter fully intact. Pressure dressing applied to site. Patient tolerated procedure well. Discharged with aftercare instructions per MD. NOTE:
== END | disposition home or self-care (01) ==
LOC: CHF HDHVI 09:30
PROVIDERS: ATTEND Internal Medicine Cardiovascular Disease
DX: I50.23 Acute on chronic systolic (congestive) heart failure (principal); E11.9 Type 2 diabetes mellitus without complications; I10 Essential (primary) hypertension; D51.9 Vitamin B12 deficiency anemia, unspecified; D64.9 Anemia, unspecified
CPT/HCPCS: 36415; 80053; 82607; 83036; 83880; 85025; 96365; 96366; G0463; J1250

== ENCOUNTER → 2019-06-30 | Outpatient (CLI) | payer MEDICARE, MEDICAID ==
[~2019-06-30] MED LIST changes: +ADENOSINE 90 MG/30 ML INJ IV ONE; +ADENOSINE 98 MG in GIVE UN-DILUTED 0 ML IV ONE; -DOBUTamine 1000MCG/ML 250 ML IV ONE; +FURO1TAB31 PO; -FURO40TA PO; -FUROSEMIDE 40 MG/4 ML VIAL ONE
[2019-06-30 15:54] LABS: Urine Blood Negative /uL (Negative); Urine Specific Gravity 1.023 (1.001-1.035)
[2019-06-30 15:59] LABS: Basophils # (auto) 0.1 uL; Basophils % (auto) 0.9 % (0.0-2.0); Eosinophils # (auto) 0.3 uL; Eosinophils % (auto) 3.4 % (0.0-7.0); Hematocrit 48.1 % (36.0-46.0); Hemoglobin 15.6 g/dL (12.2-16.2); Lymphocytes # (auto) 3.4 uL; Lymphocytes % (auto) 35.5 % (10.0-50.0); Mean Corpuscular Hemoglobin 30.3 pg (28.0-32.0); Mean Corpuscular Hgb Conc. 32.4 g/dL (32.0-36.0); Mean Corpuscular Volume 93.4 fL (80.0-100.0); Monocytes % (auto) 10.7 % (0.0-12.0); Neutrophils # (auto) 4.8 uL; Neutrophils % (auto) 49.5 % (37.0-80.0); Platelet Count (auto) 324 10^3/uL (140-450); Red Blood Cells 5.15 10^6/uL (4.0-5.20); Red Cell Distribution Width 14.1 % (11.8-14.3); White Blood Cell 9.6 10^3/uL (4.4-10.8)
[2019-06-30 16:03] LABS: Albumin 3.4 g/dL (3.4-5.0); Calcium 8.9 mg/dL (8.5-10.1); Potassium 4.2 mmol/L (3.5-5.1)
[2019-06-30 16:08] LABS: BUN/Creatinine Ratio 23.5; Bilirubin, Total 0.6 mg/dL (0.2-1.0); Total Protein 7.9 g/dL (6.4-8.2)
[2019-06-30 16:12] LABS: Free T4 (Free Thyroxine) 0.74 ng/dL (0.89-1.76)
== END | disposition home or self-care (01) ==
LOC: Rad HDHVI 12:24
PROVIDERS: ATTEND Internal Medicine Cardiovascular Disease
DX: Z00.00 Encounter for general adult medical examination without abnormal findings (principal); E03.9 Hypothyroidism, unspecified; K90.9 Intestinal malabsorption, unspecified; N39.0 Urinary tract infection, site not specified; D51.9 Vitamin B12 deficiency anemia, unspecified; I11.0 Hypertensive heart disease with heart failure; I50.33 Acute on chronic diastolic (congestive) heart failure; Z79.899 Other long term (current) drug therapy
CPT/HCPCS: 36415; 78452; 80053; 80061; 81003; 82306; 82607; 82962; 83036; 84439; 84443; 85025; 93005; 93306; 96374; 96375; A9500; J0153

== ENCOUNTER → 2021-01-31 | Outpatient (CLI) | payer MEDICARE, MEDICAID ==
[~2021-01-31] MED LIST changes: -ADENOSINE 90 MG/30 ML INJ IV ONE; -ADENOSINE 98 MG in GIVE UN-DILUTED 0 ML IV ONE
== END | disposition home or self-care (01) ==
LOC: Rad HDHVI 09:43
PROVIDERS: ATTEND Internal Medicine Cardiovascular Disease
DX: I11.0 Hypertensive heart disease with heart failure (principal); I50.22 Chronic systolic (congestive) heart failure
CPT/HCPCS: 93306

== ENCOUNTER → 2021-02-07 | Outpatient (CLI) | payer MEDICARE, MEDICAID ==
[~2021-02-07] VITALS: Ht 160 cm; Wt 127.0 kg
[~2021-02-07] MED LIST changes: +ADENOSINE 107 MG in GIVE UN-DILUTED 0 ML IV ONE; +ADENOSINE 90 MG/30 ML INJ IV ONE; +ALBUTEROL SULF 2.5 MG/0.5ML(0.5%) NEB SOLN ONE
== END | disposition home or self-care (01) ==
LOC: Rad HDHVI 08:52
PROVIDERS: ATTEND Internal Medicine Cardiovascular Disease
DX: I11.0 Hypertensive heart disease with heart failure (principal); I50.33 Acute on chronic diastolic (congestive) heart failure; R42 Dizziness and giddiness; E78.00 Pure hypercholesterolemia, unspecified; Z95.0 Presence of cardiac pacemaker; Z82.49 Family history of ischemic heart disease and other diseases of the circulatory system
CPT/HCPCS: 78452; 93005; 94640; 96374; 96375; A9500; J0153

== ENCOUNTER 2022-08-21 07:13 | Day surgery (SDC) | payer MEDICARE, MEDICAID ==
[~2022-08-21] VITALS: Ht 160 cm; Wt 127.0 kg
[~2022-08-21 07:13] MED LIST changes: -ADENOSINE 107 MG in GIVE UN-DILUTED 0 ML IV ONE; -ADENOSINE 90 MG/30 ML INJ IV ONE; -ALBUTEROL SULF 2.5 MG/0.5ML(0.5%) NEB SOLN ONE; -ATEN-60 PO; +ATEN50TA PO; -ATOR20TA PO; -BUSP10TA90 PO; +BUSP15TA90 PO; -CARB200T PO; +CARB200T4 PO; -ESOM20CA PO; -FURO1TAB31 PO; +GABA300C10 PO; +METO5TAB5 PO; +OLME40TA9 PO; -POTA10TA51 PO; +SIMV10TA2 PO
[2022-08-21] MEDS ORDERED: VANCOMYCIN 1GM/250ML 250 ML IV ONE ×2 (09:30→09:35)
[2022-08-21] MEDS ORDERED: MIDAZOLAM HCL 2MG/2ML 2ml VIAL (1mg/ml) ONE (09:37)
[2022-08-21] MEDS ORDERED: fentaNYL CITRATE 100 MCG/2 ML VL ONE (09:37)
[2022-08-21] MEDS ORDERED: IODIXANOL 320MG/ML 100ML BTL IV ONE (09:43)
[2022-08-21] MEDS ORDERED: LIDOCAINE 2%HCL (LOCAL ANESTH.) INJ 10ml MDV ONE (09:43)
[2022-08-21] MEDS ORDERED: VANCOMYCIN HCL 1000 MG VL ONE (09:50)
[2022-08-21] MEDS ORDERED: HYDROmorphone HCL 2 MG/ML VL/or syr ONE (10:20)
[2022-08-21] MEDS ORDERED: CEPH-510 PO (12:18)
[2022-08-21 12:27] LABS: Hepatitis B Surface Antibody Negative (Negative)
== END 2022-08-21 13:57 | disposition home or self-care (01) ==
LOC: CATH 07:13
PROVIDERS: ATTEND Internal Medicine Cardiovascular Disease
DX: Z45.010 Encounter for checking and testing of cardiac pacemaker pulse generator [battery] (principal); I49.5 Sick sinus syndrome; Z88.0 Allergy status to penicillin
CPT/HCPCS: 33228; 36415; 71045; 86703; 86706; 86803; 87340; 93005; C1785; C1892; C1898; J1170; J1644; J2001; J2250; J3010; J3370; Q9967; U0003; 99152; 99153

== ENCOUNTER → 2022-08-22 | Outpatient (CLI) | payer MEDICARE, MEDICAID ==
[~2022-08-22] MED LIST changes: +CEPH-510 PO
== END | disposition home or self-care (01) ==
LOC: Rad HDHVI 10:24
PROVIDERS: ATTEND Internal Medicine Cardiovascular Disease
DX: I51.7 Cardiomegaly (principal); M47.814 Spondylosis without myelopathy or radiculopathy, thoracic region; M19.019 Primary osteoarthritis, unspecified shoulder
CPT/HCPCS: 71046

== ENCOUNTER → 2022-11-04 | Outpatient (CLI) | payer MEDICARE, MEDICAID | END | disposition home or self-care (01) | LOC: Rad HDHVI 10:39 | PROVIDERS: ATTEND Internal Medicine Cardiovascular Disease | DX: I08.1 Rheumatic disorders of both mitral and tricuspid valves (principal); R00.2 Palpitations; R06.02 Shortness of breath | CPT/HCPCS: 93306 ==

== ENCOUNTER 2025-02-20 15:14 | Outpatient (CLI) | payer MEDICARE, MEDICAID ==
[~2025-02-20 15:14] MED LIST changes: +GABA-1250 PO; -GABA300C10 PO; +SIMV-268 PO; -SIMV10TA2 PO
--- NOTE | 2025-02-20 16:14 | DVH ---
EXAM: CT LS SPINE WO CONTRAST HISTORY: LBP COMPARISON: None TECHNIQUE: Noncontrast axial CT images of the lumbar spine were performed. Sagittal and coronal refor matted images were obtained. This CT exam was performed using one or more of the following dose reduc tion techniques: Automated exposure control, adjustment of the mA and/or kv according to patient size , or the use of iterative reconstruction techniques. Radiation Dose: CT Dose: CTDI volume is 33.9 mGy. Dose-length product is 844.21 mGy*cm FINDINGS: No fracture or listhesis are identified in the lumbar spine. There is moderate to severe lumbar degen erative disc disease and facet arthropathy. There is mild spinal canal stenosis at L3-L4 and L4-L5. T here is L5-S1 bilaterally. The liver is diffusely fatty density. There is nonobstructing right nephr olithiasis, not fully imaged here. IMPRESSION: 1. No fracture of the lumbar spine. 2. Moderate to severe lumbar degenerative disc disease and facet arthropathy with significant neural foraminal stenosis at L3-L4 on the left and L5-S1 bilaterally. These findings may correspond to lowe r extremity radicular symptoms in the left L3 and bilateral L5 nerve root distributions. The patient is likely not compatible for follow-up MRI secondary to a left chest pacemaker. 3. Nonobstructing right nephrolithiasis. 4. Hepatic steatosis.
== END 2025-02-20 17:00 | disposition home or self-care (01) ==
LOC: Rad HDHVI 15:14
PROVIDERS: ATTEND Internal Medicine Cardiovascular Disease
DX: M47.817 Spondylosis without myelopathy or radiculopathy, lumbosacral region (principal); M51.370 Other intervertebral disc degeneration, lumbosacral region with discogenic back pain only; M48.07 Spinal stenosis, lumbosacral region; N20.0 Calculus of kidney; K76.0 Fatty (change of) liver, not elsewhere classified
CPT/HCPCS: 72131; 93306

== ENCOUNTER 2025-03-15 16:37 | Inpatient (IN) | payer MEDICARE, MEDICAID ==
[~2025-03-15] VITALS: Ht 160 cm; Wt 123.8 kg
--- NOTE | 2025-03-15 16:48 | ECG ---
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
[2025-03-15] MEDS: SODIUM CHLORIDE 0.9% 500 ML IV ONE (17:54)
[2025-03-15 18:14] VITALS: PULSE 138; RESP 18; O2SAT 98
--- NOTE | 2025-03-15 18:16 | DVH ---
CHEST RADIOGRAPH Indication: SOB Technique: Single frontal view of the chest was obtained COMPARISON: None FINDINGS: Left chest cardiac pacing device. The cardiac silhouette is enlarged. The lungs demonstrate bilateral patchy airspace opacities. The pu lmonary vasculature is prominent. Small bilateral pleural effusions, [id number]. There i s no pneumothorax. IMPRESSION: Cardiomegaly with pulmonary vascular congestion and bilateral patchy airspace opacities.
[2025-03-15 18:18] LABS: Hematocrit 50.3 % (36.0-46.0); Hemoglobin 16.4 g/dL (12.2-16.2); Mean Corpuscular Hemoglobin 30.7 pg (28.0-32.0); Mean Corpuscular Volume 94.2 fL (80.0-100.0); Nucleated Red Blood Cells % 0.1 %
[2025-03-15 18:24] LABS: Chloride 99 mmol/L (98-107); Potassium 4.4 mmol/L (3.5-5.1); Sodium 142 mmol/L (136-145)
[2025-03-15 18:25] LABS: Anion Gap 8 (5-15); Calcium 9.8 mg/dL (8.7-10.4)
[2025-03-15 18:30] LABS: BUN/Creatinine Ratio 15.8 (10.0-20.0); Blood Urea Nitrogen 16 mg/dL (9-23)
[2025-03-15 18:35] LABS: Carbon Dioxide 35 mmol/L (20-31); Glucose 119 mg/dL (74-106)
[2025-03-15 18:36] LABS: Lactic Acid w/Reflex 2.7 mmol/L (0.4-2.0)
[2025-03-15] MEDS: SODIUM CHLORIDE 0.9% 2,000 ML IV ONE (19:16)
[2025-03-15] MEDS: PIPERACILLIN-TAZOB 3.375GM 100 ML IV ONE (19:16)
--- NOTE | 2025-03-15 19:33 | ED.PDOC ---
History of Present Illness HPI Comments Patient is a 69-year-old female with a past medical history of atrial fibrillation, congestive heart failure, COPD on 4 L oxygen at baseline, hyperthyroidism, fibromyalgia, osteoarthritis, hyperlipidemia was brought in by EMS with a chief complaint of dysuria and hematuria for the last 1 week. Patient reports that she lives in assisted care facility and has been bed-bound for the last 1 year (because of multiple falls) and has been having burning pain on urination associated with the swelling in the vaginal area, pain in the suprapubic, right and left lower quadrants, chills and weakness all over the body noticed to have blood in the urine. Today the patient was noticed to have bright red blood in the urine following which the EMS were called and the patient was brought to the hospital for further evaluation. Patient denied any vaginal discharge, fevers, nausea, vomiting. Chief Complaint: Palpitations Time Seen by MD: 17:07 Primary Care Provider: PRASANTH Allergies: Coded Allergies: Enoxaparin (Verified Allergy, Severe, BURNING ALL OVER BODY AND LOWER BACK PAIN-PATIENT REPORTS, 10/02/18) Penicillins (Verified Allergy, Unknown, 08/18/22) some penicillins, pt doesn't know names, states Prasanth Ac knows. Sulfa Antibiotics (Verified Allergy, Unknown, 12/15/16) Home Meds Reported Medications Cephalexin ( Keflex 500) 500 Mg Cap, 1 CAP PO QID for prophylaxis for 7 Days, CAP 08/21/22 Olmesartan Medoxomil-Hydrochlo (Benicar Hct) 1 Tab Tab, 1 TAB PO DAILY for HTN/CHF 08/18/22 Metolazone (Metolazone) 5 Mg Tab, 5 MG PO DAILY for HTN,FLUID RETENTION, TAB 08/18/22 Simvastatin (Zocor) 10 Mg Tab, 20 MG PO HS for CHOLESTEROL, TAB 08/18/22 Gabapentin (Gabapentin) 300 Mg Cap, 300 MG PO TID PRN for PAIN SCALE 1 THRU 6 08/18/22 Carbamazepine (Carbamazepine) 200 Mg Tab, 600 MG PO HS, TAB 08/18/22 Buspirone HCl (Buspirone Hydrochloride) 15 Mg Tab, 15 MG PO TID for ANXIETY/DEPRESSION, TAB 08/18/22 Atenolol (Atenolol) 50 Mg Tab, 50 MG PO BID for HTN 08/18/22 Past Medical History PAST MEDICAL HISTORY: AFIB, Arthritis (Osteoarthritis), CHF, COPD, High Lipids, HTN, Thyroid (Hypothyroidism) Surgical History: Cholecystectomy, Pacemaker Surgical History (Other): Bladder lift 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 Hx Family History Family History: Unknown Social History Smoker: Non-Smoker Alcohol: Denies ETOH Use Drugs: Denies Drug Use Lives In: Home Constitutional: reports: chills, fatigue, weakness EENTM: denies: blurred vision, double vision, ear bleeding, ear discharge, ear drainage, ear pain, ear ringing, eye pain, eye redness, hearing loss, mouth pain, mouth swelling, nasal discharge, nose bleeding, nose congestion, nose pain, photophobia, tearing, throat pain, throat swelling, voice changes, others Respiratory: reports: shortness of breath (Patient reports of feeling stuffy but saturating fine on her baseline 4 L oxygen) Cardiovascular: denies: chest pain, dizzy spells, diaphoresis, Dyspnea on exertion, edema, irregular heart beat, left arm pain, lightheadedness, palpitations, PND, syncope, others Gastrointestinal: reports: abdominal pain (Lower abdominal including the RLQ, LLQ, suprapubic area) Genitourinary: reports: burning, dysuria, hematuria, pain, urgency Neurological: denies: dizziness, fainting, headache, left sided numbness, left sided weakness, numbness, paresthesia, pre-existing deficit, right sided numbness, right sided weakness, seizure, speech problems, tingling, tremors, weakness, others Musculoskeletal: reports: back pain Integumetry: denies: bruises, change in color, change in hair/nails, dryness, laceration, lesions, lumps, rash, wounds, others Allergic/Immunocompromised: denies: Difficulty Healing, Frequent Infections, Hives, Itching, others Hematologic/Lymphatic: denies: anemia, blood clots, easy bleeding, easy bruising, swollen glands, others Endocrine: denies: excessive hunger, excessive sweating, excessive thirst, excessive urination, flushing, intolerance to cold, intolerance to heat, unexplained weight gain, unexplained weight loss, others Psychiatric: denies: anxiety, bipolar disorder, depression, hopeless, panic disorder, schizophrenia, sleepless, suicidal, others Physical Exam General Appearance: Mild Distress HEENT: Normal ENT Inspection, Pharynx Normal, TMs Normal Neck: Full Range of Motion, Non-Tender, Normal, Normal Inspection Respiratory: Chest Non-Tender, Lungs Clear, No Accessory Muscle Use, No Respiratory Distress, Normal Breath Sounds Cardiovascular: No Edema, No JVD, No Murmur, No Gallop, Normal Peripheral Pulses, Regular Rate/Rhythm Breast Exam: Deferred Gastrointestinal: LLQ, No Organomegaly, No Pulsatile Mass, Normal Bowel Sounds, RLQ, Soft, Suprapubic, Tenderness Genitalia: Deferred Pelvic: Deferred Rectal: Deferred Extremities: No calf tenderness, Normal capillary refill, Normal inspection, Normal range of motion, Non-tender, No pedal edema 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 Was a procedure done?: No EKG EKG : Pulse Rate (adult): 158 [place]: Normal Cardiac Rhythm: PSVT, PVC's Block: RBBB, None Hypertrophy: None ST: Normal Differential Dx Considerations may include: Sepsis, UTI, acute cystitis, acute pyelonephritis, atrial fibrillation with a R VR, h/o CHF, history of COPD X-Ray, Labs, Meds, VS Vital Signs Date Time Temp Pulse Resp B/P (MAP) Pulse Ox O2 Delivery O2 Flow Rate FiO2 03/15/25 20:00 98.0 133 17 117/73 (88) 99 98.0 03/15/25 19:33 158 03/15/25 18:14 138 18 98 Nasal Cannula* 4 36 03/15/25 18:03 98.1 138 18 111/68 (82) 98 98.1 03/15/25 17:32 98.3 84 16 141/86 (104) 91 98.3 03/15/25 16:44 158 Lab Test 03/15/25 19:48 03/15/25 17:57 03/15/25 17:50 Range/Units Lactic Acid Level 2.4 *H 2.7 *H 0.4-2.0 mmol/L White Blood Count 15.6 H 4.4-10.8 10^3/uL Red Blood Count 5.34 H 4.0-5.20 10^6/uL Hemoglobin 16.4 H 12.2-16.2 g/dL Hematocrit 50.3 H 36.0-46.0 % Mean Corpuscular Volume 94.2 80.0-100.0 fL Mean Corpuscular Hemoglobin 30.7 28.0-32.0 pg Mean Corpuscular Hemoglobin Concent 32.6 32.0-36.0 g/dL Red Cell Distribution Width 14.7 H 11.8-14.3 % Platelet Count 337 140-450 10^3/uL Mean Platelet Volume 7.9 6.9-10.8 fL Neutrophils (%) (Auto) 72.9 37.0-80.0 % Lymphocytes (%) (Auto) 15.8 10.0-50.0 % Monocytes (%) (Auto) 9.2 0.0-12.0 % Eosinophils (%) (Auto) 1.2 0.0-7.0 % Basophils (%) (Auto) 0.9 0.0-2.0 % Neutrophils # (Auto) 11.4 H 1.6-8.6 10 ^3/uL Lymphocytes # (Auto) 2.5 0.4-5.4 10 ^3/uL Monocytes # (Auto) 1.4 H 0-1.3 10 ^3/uL Eosinophils # (Auto) 0.2 0-0.8 10 ^3/uL Basophils # (Auto) 0.1 0-0.2 10 ^3/uL Nucleated Red Blood Cells 0.1 % Sodium Level 142 136-145 mmol/L Potassium Level 4.4 3.5-5.1 mmol/L Chloride Level 99 98-107 mmol/L Carbon Dioxide Level 35 H 20-31 mmol/L Anion Gap 8 5-15 Blood Urea Nitrogen 16 9-23 mg/dL Creatinine 1.01 0.550-1.02 mg/dL Glomerular Filtration Rate Calc 60 >90 mL/min BUN/Creatinine Ratio 15.8 10.0-20.0 Serum Glucose 119 H 74-106 mg/dL Calcium Level 9.8 8.7-10.4 mg/dL B-Type Natriuretic Peptide 116.77 0-100 pg/mL Urine Color Dark-brown Yellow Urine Clarity Ex.turbid Clear Urine pH 6.0 5.0-9.0 Urine Specific [place] 1.022 1.001-1.035 Urine Protein 3+ H Negative Urine Ketones Negative Negative Urine Blood 3+ H Negative /uL Urine Nitrite Negative Negative Urine Bilirubin Negative Negative Urine Urobilinogen Normal Negative mg/dL Urine Leukocyte Esterase 2+ Negative /uL Urine RBC 3568 0 - 4 /hpf Urine Microscopic WBC 285 H 0-5 /HPF Urine Squamous Epithelial Cells Few <5 /hpf Urine Bacteria None seen None Seen /hpf Urine Hyaline Casts Few 0 - 2 /lpf Urine Glucose Trace Normal mg/dL Current Medications Medications (Trade) Dose Ordered Sig/Darshana Route Start Time Stop Time Status Last Admin Sodium Chloride 500 ml @ 500 mls/hr Q1H ONCE IV 03/15/25 18:00 03/15/25 18:59 DC 03/15/25 17:54 Piperacillin Sod/ Tazobactam Sod 100 ml @ 100 mls/hr ONCE ONCE IV 03/15/25 19:00 03/15/25 19:59 DC 03/15/25 19:16 Sodium Chloride 2,000 ml @ 1,000 mls/hr Q2H ONCE IV 03/15/25 19:00 03/15/25 20:59 DC 03/15/25 19:16 Patient is 69-year-old female was brought in by EMS from her assisted care facility for chief complaint of dysuria and hematuria which was going on for the last 1 week. Patient also complained suprapubic abdominal pain. Patient has a history of atrial fibrillation and on arrival was in RVR. Lab investigations revealed the patient had elevated white count with left shift, elevated lactic acid and patient was in sepsis was given Zosyn and 2.5 L IV fluids. Patient is being admitted for further management and agrees with the admission. Time of 1ST Reevaluation: 19:08 Reevaluation 1ST: Unchanged Time of 2ND Reevaluation: 20:38 Reevaluation 2ND: Improved Patient Education/Counseling: Diagnosis, Treatment, Prognosis Family Education/Counseling: No Family Present SEPSIS Sepsis Screen Date sepsis recognized/suspect: Mar 15, 2025 Time Sepsis recognized/suspect: 18:15 Recent Procedure: No On Antibiotic Therapy: Yes Respiratory Rate >20: No Heart Rate >90: Yes Temp<36 C (96.8 F) or >38.3 C: No SBP <90 or MAP <65 mmHG: No New Acute Mental Status Change: No Is the patient on CPAP, BIPAP,: No IV fluid challenge completed?: No Physician Orders Blood Culture (03/15/25 17:22) Urine Bacterial Culture (03/15/25 17:22) Heplock Iv (03/15/25 ) Ct Ab Pel Wo Con-No Oral Or Iv (03/15/25 17:22) Chest Xray 1 View (03/15/25 17:22) Interiano Catheters (03/15/25 ) Electrocardigram (03/15/25 19:08) Electrocardigram (03/15/25 20:08) Electrocardigram (03/15/25 22:08) Vital Signs Date Time Temp Pulse Resp B/P (MAP) Pulse Ox O2 Delivery O2 Flow Rate FiO2 03/15/25 20:00 98.0 133 17 117/73 (88) 99 98.0 03/15/25 19:33 158 03/15/25 18:14 138 18 98 Nasal Cannula* 4 36 03/15/25 18:03 98.1 138 18 111/68 (82) 98 98.1 03/15/25 17:32 98.3 84 16 141/86 (104) 91 98.3 03/15/25 16:44 158 Laboratory Tests Test 03/15/25 17:57 03/15/25 19:48 Lactic Acid Level 2.7 mmol/L (0.4-2.0) *H 2.4 mmol/L (0.4-2.0) *H White Blood Count 15.6 10^3/uL (4.4-10.8) H Medications Medications Dose Ordered Sig/Darshana Route Start Time Stop Time Status Last Admin Dose Admin Piperacillin Sod/ Tazobactam Sod 100 ml @ 100 mls/hr ONCE ONCE IV 03/15/25 19:00 03/15/25 19:59 DC 03/15/25 19:16 Sodium Chloride 500 ml @ 500 mls/hr Q1H ONCE IV 03/15/25 18:00 03/15/25 18:59 DC 03/15/25 17:54 Sodium Chloride 2,000 ml @ 1,000 mls/hr Q2H ONCE IV 03/15/25 19:00 03/15/25 20:59 DC 03/15/25 19:16 Departure 1 Departure Time of Disposition: 21:17 Impression: Primary Impression: Sepsis Additional Impressions: UTI (urinary tract infection) Acute cystitis Nephrolithiasis Atrial fibrillation with RVR Disposition: ADMITTED INPATIENT Condition: Fair Critical Care Note Critical Care Time?: Yes (1 hr-critical care time only) Stability Stability form required: No Heart Score Heart Score: Heart Score Response (Comments) Value History N/A 0 EKG N/A 0 Age N/A 0 Risk Factors N/A 0 Troponin N/A 0 Total 0 MARIELOS COOK RESIDENT Mar 15, 2025 19:33
[2025-03-15 19:38] LABS: Urine Protein, UAD 3+ (Negative)
[2025-03-15 20:00] VITALS: PULSE 130; RESP 16; O2SAT 96
--- NOTE | 2025-03-15 20:54 | DVH ---
Exam: CT CT AB PEL WO CON-NO ORAL OR IV History: lower abdominal pain, urinary frequency Comparison Study: [facility] on DOS: 12/06/21 Technique: Multidetector spiral CT of the abdomen was performed from lung bases to pubic symphysis. Imaging was performed without IV contrast. Axial, coronal and sagittal multiplanar reformats were ob tained from the axial data set by the technologist. Radiation Dose : 1. Abdomen/Pelvis: CTDIvol 26 mGy, DLP 1674 and mGy*cm. Findings: Evaluation of solid organs is limited due to lack of intravenous contrast use. Lung Bases: No acute or significant lung base finding. Normal heart size. No pleural or pericardial effusion. Liver: The liver is normal in size. No focal lesions. Gallbladder and Biliary Tree: Gallbladder is surgically absent. Spleen: Unremarkable Pancreas: The pancreas is grossly normal in appearance. Adrenal Glands: Unremarkable Kidneys: Multiple small subcentimeter calculi are seen in the right kidney. No hydronephrosis. Bilat eral renal cysts. 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 Bowel: The stomach is grossly normal in appearance. Small bowel and colon are normal in caliber and d istribution. The appendix is not visualized; however, no secondary findings of acute appendicitis id entified. Ascites: Absent Lymphadenopathy: No mesenteric, retroperitoneal or periportal lymphadenopathy. Abdominal Wall and Mesentery: Unremarkable. Vasculature: The visualized abdominal aorta is normal in size and caliber. Evaluation of abdominal a nd pelvic vessels is limited due to lack of intravenous contrast. Pelvic Organs: Unremarkable Musculoskeletal: No aggressive focal bony lesions, acute fractures or dislocation. IMPRESSION: 1. Right renal nephrolithiasis without hydronephrosis. Radiation optimization: All CT scans at this facility use at least one of these dose optimization akilah hniques: automated exposure control mA and/or kV adjustment per patient size (includes targeted exam s where dose is matched to clinical indication) or iterative reconstruction.
[2025-03-15] MEDS ORDERED: ALBUTEROL SULF 2.5 MG/0.5ML(0.5%) NEB SOLN NEB PRN (23:30)
[2025-03-15] MEDS ORDERED: MORPHINE SULFATE INJ 2 MG/ml SYRG IV PRN (23:30)
[2025-03-15] MEDS ORDERED: NITROGLYCERIN 0.4 MG SL TAB SL PRN (23:30)
[2025-03-15] MEDS ORDERED: ONDANSETRON HCL 4 MG/2 ML VIAL IV PRN (23:30)
--- NOTE | 2025-03-15 23:33 | DVHHP2 ---
History of Present Illness Reason for Visit: Hematuria History of Present Illness 69-year-old female presents for evaluation of bloody urine. Patient reports a one-week history of noticing blood in her urine. She states over the past three days he has become worse with associated dysuria and lower abdominal pain. She reports also occasional nausea. Patient has a history of COPD currently on nasal cannula oxygen. She also reports some shortness for breath with a nonproductive cough. Past Medical History COPD, CHF, arthritis, AFib, dyslipidemia, hypertension, thyroid Past Surgical History Pacemaker, cholecystectomy, bladder lift Family History Noncontributory Smoke: No ALCOHOL: none Drugs: None Lives: with Family Review of Systems Review of Systems Review of systems are currently negative otherwise addressed in HPI. Allergies: Coded Allergies: Enoxaparin (Verified Allergy, Severe, BURNING ALL OVER BODY AND LOWER BACK PAIN-PATIENT REPORTS, 10/02/18) Penicillins (Verified Allergy, Unknown, 08/18/22) some penicillins, pt doesn't know names, states Prasanth Ac knows. Sulfa Antibiotics (Verified Allergy, Unknown, 12/15/16) Exam Vital Signs Vital Signs Date Time Temp Pulse Resp B/P (MAP) Pulse Ox O2 Delivery O2 Flow Rate FiO2 03/15/25 22:00 111 16 108/67 (81) 98 03/15/25 20:00 98.0 98.0 03/15/25 20:00 Nasal Cannula* 4 36 Exam Gen: 69-year-old female in mild distress, morbidly obese Skin: Warm, dry, normal color and texture, no rash. HEENT: Normocephalic atraumatic, mucous membranes moist and pink. Neck: Cervical and supraclavicular nodes normal without enlargement, trachea is midline, thyroid gland is normal without masses. Pulmonary: Clear to auscultation and percussion bilaterally. Cardiac: Regular rate and rhythm. No murmur Abdomen: Soft, nontender, nondistended, bowel sounds present all 4 quadrants, no guarding, no rigidity, no organomegaly. Extremities: No cyanosis, clubbing, no edema Neuro: Cranial nerves II through XII grossly intact, normal affect and speech, no focal motor deficits. Labs/Xrays ORDERING PHYSICIAN: MARIELOS COOK RESIDENT PROCEDURE(s): ABPL - CT AB PEL WO CON-NO ORAL OR IV REASON: lower abdominal pain, urinary frequency ORDER NUMBER(s): [id number], ACCESSION NUMBER(s): [id number] Exam: CT CT AB PEL WO CON-NO ORAL OR IV History: lower abdominal pain, urinary frequency Comparison Study: [facility] on DOS: 12/06/21 Technique: Multidetector spiral CT of the abdomen was performed from lung bases to pubic symphysis. Imaging was performed without IV contrast. Axial, coronal and sagittal multiplanar reformats were obtained from the axial data set by the technologist. Radiation Dose : 1. Abdomen/Pelvis: CTDIvol 26 mGy, DLP 1674 and mGy*cm. Findings: Evaluation of solid organs is limited due to lack of intravenous contrast use. Lung Bases: No acute or significant lung base finding. Normal heart size. No pleural or pericardial effusion. Liver: The liver is normal in size. No focal lesions. Gallbladder and Biliary Tree: Gallbladder is surgically absent. Spleen: Unremarkable Pancreas: The pancreas is grossly normal in appearance. Adrenal Glands: Unremarkable Kidneys: Multiple small subcentimeter calculi are seen in the right kidney. No hydronephrosis. Bilateral renal cysts. 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 Bowel: The stomach is grossly normal in appearance. Small bowel and colon are normal in caliber and distribution. The appendix is not visualized; however, no secondary findings of acute appendicitis identified. Ascites: Absent Lymphadenopathy: No mesenteric, retroperitoneal or periportal lymphadenopathy. Abdominal Wall and Mesentery: Unremarkable. Vasculature: The visualized abdominal aorta is normal in size and caliber. Evaluation of abdominal and pelvic vessels is limited due to lack of intravenous contrast. Pelvic Organs: Unremarkable Musculoskeletal: No aggressive focal bony lesions, acute fractures or dislocation. IMPRESSION: 1. Right renal nephrolithiasis without hydronephrosis. Radiation optimization: All CT scans at this facility use at least one of these dose optimization techniques: automated exposure control mA and/or kV adjustment per patient size (includes targeted exams where dose is matched to clinical indication) or iterative reconstruction. RING PHYSICIAN: MARIELOS COOK RESIDENT PROCEDURE(s): CXR1 - CHEST XRAY 1 VIEW REASON: SOB ORDER NUMBER(s): [id number], ACCESSION NUMBER(s): [id number] CHEST RADIOGRAPH Indication: SOB Technique: Single frontal view of the chest was obtained COMPARISON: None FINDINGS: Left chest cardiac pacing device. The cardiac silhouette is enlarged. The lungs demonstrate bilateral patchy airspace opacities. The pulmonary vasculature is prominent. Small bilateral pleural effusions, [id number]. There is no pneumothorax. IMPRESSION: Cardiomegaly with pulmonary vascular congestion and bilateral patchy airspace opacities. ATED BY: TIARA CABA MD Labs Test 03/15/25 19:48 03/15/25 17:57 03/15/25 17:50 Range/Units Lactic Acid Level 2.4 *H 0.4-2.0 mmol/L White Blood Count 15.6 H 4.4-10.8 10^3/uL Red Blood Count 5.34 H 4.0-5.20 10^6/uL Hemoglobin 16.4 H 12.2-16.2 g/dL Hematocrit 50.3 H 36.0-46.0 % Mean Corpuscular Volume 94.2 80.0-100.0 fL Mean Corpuscular Hemoglobin 30.7 28.0-32.0 pg Mean Corpuscular Hemoglobin Concent 32.6 32.0-36.0 g/dL Red Cell Distribution Width 14.7 H 11.8-14.3 % Platelet Count 337 140-450 10^3/uL Mean Platelet Volume 7.9 6.9-10.8 fL Neutrophils (%) (Auto) 72.9 37.0-80.0 % Lymphocytes (%) (Auto) 15.8 10.0-50.0 % Monocytes (%) (Auto) 9.2 0.0-12.0 % Eosinophils (%) (Auto) 1.2 0.0-7.0 % Basophils (%) (Auto) 0.9 0.0-2.0 % Neutrophils # (Auto) 11.4 H 1.6-8.6 10 ^3/uL Lymphocytes # (Auto) 2.5 0.4-5.4 10 ^3/uL Monocytes # (Auto) 1.4 H 0-1.3 10 ^3/uL Eosinophils # (Auto) 0.2 0-0.8 10 ^3/uL Basophils # (Auto) 0.1 0-0.2 10 ^3/uL Nucleated Red Blood Cells 0.1 % Sodium Level 142 136-145 mmol/L Potassium Level 4.4 3.5-5.1 mmol/L Chloride Level 99 98-107 mmol/L Carbon Dioxide Level 35 H 20-31 mmol/L Anion Gap 8 5-15 Blood Urea Nitrogen 16 9-23 mg/dL Creatinine 1.01 0.550-1.02 mg/dL Glomerular Filtration Rate Calc 60 >90 mL/min BUN/Creatinine Ratio 15.8 10.0-20.0 Serum Glucose 119 H 74-106 mg/dL Calcium Level 9.8 8.7-10.4 mg/dL B-Type Natriuretic Peptide 116.77 0-100 pg/mL Urine Color Dark-brown Yellow Urine Clarity Ex.turbid Clear Urine pH 6.0 5.0-9.0 Urine Specific [place] 1.022 1.001-1.035 Urine Protein 3+ H Negative Urine Ketones Negative Negative Urine Blood 3+ H Negative /uL Urine Nitrite Negative Negative Urine Bilirubin Negative Negative Urine Urobilinogen Normal Negative mg/dL Urine Leukocyte Esterase 2+ Negative /uL Urine RBC 3568 0 - 4 /hpf Urine Microscopic WBC 285 H 0-5 /HPF Urine Squamous Epithelial Cells Few <5 /hpf Urine Bacteria None seen None Seen /hpf Urine Hyaline Casts Few 0 - 2 /lpf Urine Glucose Trace Normal mg/dL Assessment/Plan Assessment/Plan Assessment Sepsis Acute cystitis Hematuria Possible pneumonia AFib Leukocytosis Morbid obesity Plan Admit the patient to telemetry to the hospitalist Rocephianiket/azithromycin Med [facility] Hold Xarelto Nephrology consult Resume home medications Continue treatment per orders. Plan discussed with: Patient My Orders Orders - SARAHY ELIZONDO Procedure Category Date Status Time Echo 2d Mode Cardiac US 03/15/25 Verified DOP 23:21 Atenolol Tablet PHA 03/15/25 Verified (Tenormin Tablet) 23:30 Atenolol Tablet PHA 03/16/25 Verified (Tenormin Tablet) 10:00 Date of Service: Mar 15, 2025 Billing Provider: SARAHY ELIZONDO Common Visit Codes: [id number] INP/OBS CARE (HIGH) SARAHY ELIZONDO Mar 15, 2025 23:33
[2025-03-16] VITALS (13 sets, daily range): BP systolic 102–121; BP diastolic 42–74; PULSE 58–112; RESP 16–18; TEMP 96.5–98.6; O2SAT 97–100
[2025-03-16] MEDS: ATENOLOL 25 MG TAB PO ONE (00:45)
[2025-03-16] MEDS: BUMETANIDE 1 MG TAB PO SCH (05:31)
[2025-03-16] MEDS: LEVOTHYROXINE SODIUM 50 MCG TAB PO SCH (05:31)
[2025-03-16 06:30] LABS: Hematocrit 44.4 % (36.0-46.0); Hemoglobin 14.7 g/dL (12.2-16.2); Mean Corpuscular Hemoglobin 31.5 pg (28.0-32.0); Mean Corpuscular Volume 95.1 fL (80.0-100.0); Nucleated Red Blood Cells % 0.1 %
[2025-03-16 06:38] LABS: Anion Gap 8 (5-15); Chloride 104 mmol/L (98-107); Potassium 3.9 mmol/L (3.5-5.1)
[2025-03-16 06:39] LABS: Calcium 9.2 mg/dL (8.7-10.4)
[2025-03-16 06:44] LABS: Blood Urea Nitrogen 15 mg/dL (9-23)
[2025-03-16 06:53] LABS: BUN/Creatinine Ratio 16.5 (10.0-20.0); Carbon Dioxide 33 mmol/L (20-31); Glucose 125 mg/dL (74-106); Sodium 145 mmol/L (136-145)
[2025-03-16 08:10] LABS: Alanine Aminotransferase 11.0 U/L (7-40); Albumin 3.7 g/dL (3.2-4.8); Alkaline Phosphatase 84.0 U/L (46-116); Bilirubin, Direct 0.1 mg/dL (<0.3); Bilirubin, Total 0.3 mg/dL (0.2-1.0); Total Protein 6.4 g/dL (5.7-8.2)
[2025-03-16 08:23] LABS: INR 1.06 (0.9-1.15); Partial Thromboplastin Time 28.2 SEC (24.5-34.5); Prothrombin Time 11.2 sec (9.3-11.8)
[2025-03-16] MEDS: SACUBITRIL-VALSARTAN 24mg/26mg TAB PO SCH (10:00)
[2025-03-16] MEDS: carBAMazepine 200 MG TAB PO SCH (10:09)
[2025-03-16] MEDS: ATENOLOL 25 MG TAB PO SCH (10:09)
[2025-03-16] MEDS: ALBUTEROL SULF 2.5 MG/0.5ML(0.5%) NEB SOLN NEB SCH (10:45)
--- NOTE | 2025-03-16 10:47 | DVHPNRES ---
Progress Note Date Seen: Mar 16, 2025 Resident Creating Document: ELKIN ACE RESIDENT Medical Necessity Reason Pt with a Central, PICC or Fol: Yes The following are medically ne: Interiano Catheter Subjective Review of Systems Zandra Raygoza is a 69-year-old female, Bed bound with a past medical history presented for evaluation of bloody urine. patient reports 1 week history of noticing blood in her urine and states that over the past 3 years it has become worse. It is associated with dysuria, lower abdominal, nausea, chills, but no vomiting, no burning micturition and is nonradiating nature. she has a history of COPD and is currently on nasal cannula oxygen at 4 L. she also reports some shortness of breath with nonproductive cough. PMH COPD, CHF, arthritis, AFib, dyslipidemia, hypertension, hypothyroidism PSH: Pacemaker, cholecystectomy, bladder lift family history: Noncontributory to this case Social history: Patient lives in a boarding care facility in [place]. She denies ever smoking, drinking alcohol, or any other drugs. Allergy: penicillin ( throat closes up), sulfa antibiotics ( itching and swelling of the body) home medicine: patient reports she can not remember all the names of the medications but takes for all of her conditions ROS Patient was seen and examined in the bedside. She continues to have blood in the urine, and mild lower abdominal pain. Rest of the system are currently negative Objective vital signs Vital Sign Date Time Temp Pulse Resp B/P (MAP) Pulse Ox O2 Delivery O2 Flow Rate FiO2 03/16/25 09:00 98.6 87 16 117/70 (86) 98 98.6 03/16/25 03:21 Nasal Cannula* 4 36 Total Intake and Output 03/15/25 03/15/25 03/16/25 15:00 23:00 07:00 Intake Total 2600 ml 100 ml Balance 2600 ml 100 ml medications Current Medications Medications Dose Ordered Sig/Darshana Route Start Time Stop Time Status Last Admin Dose Admin Atenolol 50 mg BID PO 03/16/25 10:00 Carbamazepine 200 mg BID PO 03/16/25 10:00 Atorvastatin Calcium 20 mg HS PO 03/16/25 22:00 Levothyroxine Sodium 50 mcg QAM@0600 PO 03/16/25 06:00 03/16/25 05:31 50 MCG Bumetanide 2 mg BIDD PO 03/16/25 06:00 03/16/25 05:31 2 MG Sacubitril/ Valsartan 1 tab BID PO 03/16/25 10:00 Ceftriaxone Sodium 50 ml @ 100 mls/hr DAILY@09 IV 03/16/25 09:00 Azithromycin 250 ml @ 125 mls/hr DAILY IV 03/16/25 10:00 Albuterol 2.5 mg Q6HPRN PRN NEB 03/15/25 23:30 Acetaminophen/ Hydrocodone Bitart 1 tab Q4HP PRN PO 03/15/25 23:30 Ondansetron HCl 4 mg Q4HP PRN IV 03/15/25 23:30 Acetaminophen 650 mg Q6HP PRN PO 03/15/25 23:30 Nitroglycerin 0.4 mg Q5MINP PRN SL 03/15/25 23:30 Morphine Sulfate 2 mg Q30M PRN IV 03/15/25 23:30 Examination Pt is lying on bed General Appearance: Alert, Oriented X3, Cooperative, mild distress, obese HEENT: Atraumatic, Mucous membranes moist/pink, on 4 L of oxygen via nasal cannula Respiratory: crackles in the left lung, wheezing present Cardiovascular: Regular rate, Normal S1, Normal S2, No murmurs Abdominal: Active bowel sounds, Soft, no distention, tenderness present in suprapubic region and lower right quadrant, right flank Extremities: No edema, Normal pulses, mild non pitting edema, unable to move hip and knee Skin: statis dermatitis in B/L legs, patient has rash on the mid back Neuro: Normal speech, decreased sensation in B/l feet Psych/Mental Status: Mental status NL, Mood NL Nurse was there as six pack packer during examination laboratory and microbiology Laboratory Tests 03/16/25 05:42 Test 03/16/25 05:42 Range/Units Serum Glucose 125 H 74-106 mg/dL Microbiology Date/Time Source Procedure Growth Status 03/15/25 17:50 Voided Urine Urine Culture - Preliminary Resulted Labs and/or images reviewed: Labs reviewed by me, Image(s) reviewed by me Problem List/Assessment/Plan Problem List/Assessment/Plan #Sepsis possible due to acute complicated cystitis # ? pyelonephritis - seen in urinalysis -IVF administered -Ceftriaxone - Urine culture, pending #Right kidney nephrolithiasis without hydronephrosis - Seen in CT abdomen and pelvis-Multiple small subcentimeter calculi are seen in the right kidney. and Right renal nephrolithiasis without hydronephrosis. -IVF administered -tamsulosin -Urologic consultation # Possible Acute Gram positive or negative pneumonia - X-ray shows pulmonary vascular congestion and bilateral patchy airspace opacities. - Azithromycin and rocephin given - continue home oxygen - respi cultures - MRSA nares positive # Left renal angiomyolipoma & B/l renal cyst - Seen in CT abdomen and pelvis- Bilateral renal cysts. Left renal angiomyolipoma measures up to 2.8 cm - O/P f/u # AFib with RVR and secondary hypercoagulable state # Pacemaker status -Dr. Rader is her primary care doctor and has been consulted # Hypothyroidism -Continue levothyroxine # Lumbar radiculopathy -Outpatient follow-up #Morbid obesity -Dietary loan counselor given # Skin rash -Outpatient follow-up GI prophylaxis: Not indicated DVT prophylaxis: SCD Diet: as tolerated, low sodium Goals of care discussed with the patient for more than 27 minutes: Full code status Case discussed with Dr. Marcelo patient and nurse. Plan discussed with: Patient, Other (RN) My Orders My Orders Orders - ELKIN ACE RESIDENT Procedure Category Date Status Time Vitamin D, 25-Hydroxy LAB 03/16/25 In Process 07:39 Vitamin B12 LAB 03/16/25 In Process 07:39 Date of Service: Mar 16, 2025 Billing Provider: TAMMI MARCLEO MD Common Visit Codes: [id number] INP/OBS CARE(HIGH) ELKIN ACE RESIDENT Mar 16, 2025 10:47 ANH MALONE RESIDENT Mar 16, 2025 12:16 TAMMI MARCELO MD Mar 17, 2025 08:13
[2025-03-16] MEDS: cefTRIAXone 1GM/50ML D5W 50 ML IV SCH (11:00)
[2025-03-16] MEDS: IPRATROPIUM BROM 0.5 MG/2.5ML INH SOL NEB SCH (11:23)
[2025-03-16] MEDS: AZITHROMYCIN 500MG/ 250ML 250 ML IV SCH (11:32)
--- NOTE | 2025-03-16 12:39 | DVHPN2 ---
Progress Note - Dictate Date Seen: Mar 16, 2025 Medical Necessity Reason Pt with a Central, PICC or Fol: Yes The following are medically ne: Interiano Catheter Subjective HEMATURIA NEPHROLITHIASIS DYSURIA UTI PMH; REACTIVE AIRWAY METABOLIC SYNDROME HTN HFpEF HYPOTHROID SSS S/P PPI AFIB HYPERCOAGULABLE STATE RECENT BLADDER RECONSTRUCTIVE SURGERY FOR URINARY INCONTINENCE KIMBERLYN vital signs Vital Sign Date Time Temp Pulse Resp B/P (MAP) Pulse Ox O2 Delivery O2 Flow Rate FiO2 03/16/25 11:29 84 18 99 03/16/25 11:23 Nasal Cannula 4.0 03/16/25 11:23 36 03/16/25 10:09 117/70 03/16/25 09:00 98.6 98.6 Total Intake and Output 03/15/25 03/15/25 03/16/25 15:00 23:00 07:00 Intake Total 2600 ml 100 ml Balance 2600 ml 100 ml medications Current Medications Medications Dose Ordered Sig/Darshana Route Start Time Stop Time Status Last Admin Dose Admin Atenolol 50 mg BID PO 03/16/25 10:00 03/16/25 10:09 50 MG Carbamazepine 200 mg BID PO 03/16/25 10:00 03/16/25 10:09 200 MG Atorvastatin Calcium 20 mg HS PO 03/16/25 22:00 Levothyroxine Sodium 50 mcg QAM@0600 PO 03/16/25 06:00 03/16/25 05:31 50 MCG Bumetanide 2 mg BIDD PO 03/16/25 06:00 03/16/25 05:31 2 MG Sacubitril/ Valsartan 1 tab BID PO 03/16/25 10:00 Ceftriaxone Sodium 50 ml @ 100 mls/hr DAILY@09 IV 03/16/25 09:00 03/16/25 11:00 100 MLS/HR Azithromycin 250 ml @ 125 mls/hr DAILY IV 03/16/25 10:00 Acetaminophen/ Hydrocodone Bitart 1 tab Q4HP PRN PO 03/15/25 23:30 Ondansetron HCl 4 mg Q4HP PRN IV 03/15/25 23:30 Acetaminophen 650 mg Q6HP PRN PO 03/15/25 23:30 Nitroglycerin 0.4 mg Q5MINP PRN SL 03/15/25 23:30 Morphine Sulfate 2 mg Q30M PRN IV 03/15/25 23:30 Albuterol 2.5 mg Q6HWA NEB 03/16/25 10:45 03/16/25 11:23 2.5 MG Ipratropium [place] 0.5 mg Q4HWA NEB 03/16/25 14:00 Cancel Tamsulosin HCl 0.4 mg QPM PO 03/16/25 18:00 Ipratropium [place] 0.5 mg Q6HWA NEB 03/16/25 12:00 03/16/25 11:23 0.5 MG laboratory and microbiology Laboratory Tests 03/16/25 05:42 Test 03/16/25 05:42 Range/Units Serum Glucose 125 H 74-106 mg/dL Problem List HEMATURIA NEPHROLITHIASIS DYSURIA UTI PMH; REACTIVE AIRWAY METABOLIC SYNDROME HTN HFpEF HYPOTHROID SSS S/P PPI AFIB HYPERCOAGULABLE STATE RECENT BLADDER RECONSTRUCTIVE SURGERY FOR URINARY INCONTINENCE KIMBERLYN Assessment/Plan IVF ABX Plan discussed with: Patient GUILLERMO ALDANA MD Mar 16, 2025 12:39
--- NOTE | 2025-03-16 12:39 | DVHPN2 ---
Progress Note - Dictate Date Seen: Mar 15, 2025 Medical Necessity Reason Pt with a Central, PICC or Fol: Yes The following are medically ne: Interiano Catheter Subjective HEMATURIA NEPHROLITHIASIS DYSURIA UTI PMH; REACTIVE AIRWAY METABOLIC SYNDROME HTN HFpEF HYPOTHROID SSS S/P PPI AFIB HYPERCOAGULABLE STATE RECENT BLADDER RECONSTRUCTIVE SURGERY FOR URINARY INCONTINENCE KIMBERLYN vital signs Vital Sign Date Time Temp Pulse Resp B/P (MAP) Pulse Ox O2 Delivery O2 Flow Rate FiO2 03/16/25 11:29 84 18 99 03/16/25 11:23 Nasal Cannula 4.0 03/16/25 11:23 36 03/16/25 10:09 117/70 03/16/25 09:00 98.6 98.6 Total Intake and Output 03/15/25 03/15/25 03/16/25 15:00 23:00 07:00 Intake Total 2600 ml 100 ml Balance 2600 ml 100 ml medications Current Medications Medications Dose Ordered Sig/Darshana Route Start Time Stop Time Status Last Admin Dose Admin Atenolol 50 mg BID PO 03/16/25 10:00 03/16/25 10:09 50 MG Carbamazepine 200 mg BID PO 03/16/25 10:00 03/16/25 10:09 200 MG Atorvastatin Calcium 20 mg HS PO 03/16/25 22:00 Levothyroxine Sodium 50 mcg QAM@0600 PO 03/16/25 06:00 03/16/25 05:31 50 MCG Bumetanide 2 mg BIDD PO 03/16/25 06:00 03/16/25 05:31 2 MG Sacubitril/ Valsartan 1 tab BID PO 03/16/25 10:00 Ceftriaxone Sodium 50 ml @ 100 mls/hr DAILY@09 IV 03/16/25 09:00 03/16/25 11:00 100 MLS/HR Azithromycin 250 ml @ 125 mls/hr DAILY IV 03/16/25 10:00 Acetaminophen/ Hydrocodone Bitart 1 tab Q4HP PRN PO 03/15/25 23:30 Ondansetron HCl 4 mg Q4HP PRN IV 03/15/25 23:30 Acetaminophen 650 mg Q6HP PRN PO 03/15/25 23:30 Nitroglycerin 0.4 mg Q5MINP PRN SL 03/15/25 23:30 Morphine Sulfate 2 mg Q30M PRN IV 03/15/25 23:30 Albuterol 2.5 mg Q6HWA NEB 03/16/25 10:45 03/16/25 11:23 2.5 MG Ipratropium [place] 0.5 mg Q4HWA NEB 03/16/25 14:00 Cancel Tamsulosin HCl 0.4 mg QPM PO 03/16/25 18:00 Ipratropium [place] 0.5 mg Q6HWA NEB 03/16/25 12:00 03/16/25 11:23 0.5 MG laboratory and microbiology Laboratory Tests 03/16/25 05:42 Test 03/16/25 05:42 Range/Units Serum Glucose 125 H 74-106 mg/dL Problem List HEMATURIA NEPHROLITHIASIS DYSURIA UTI PMH; REACTIVE AIRWAY METABOLIC SYNDROME HTN HFpEF HYPOTHROID SSS S/P PPI AFIB HYPERCOAGULABLE STATE RECENT BLADDER RECONSTRUCTIVE SURGERY FOR URINARY INCONTINENCE KIMBERLYN Assessment/Plan IVF ABX Plan discussed with: Patient GUILLERMO ALDANA MD Mar 16, 2025 12:39
--- NOTE | 2025-03-16 13:02 | ECG ---
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
[2025-03-16] MEDS ORDERED: IPRATROPIUM BROM 0.5 MG/2.5ML INH SOL NEB SCH (14:00)
[2025-03-16] MEDS: TAMSULOSIN HYDROCHLORIDE 0.4 MG CAP PO SCH (18:38)
[2025-03-16 19:32] LABS: COVID19 ANTIGEN SOFIA FIA NEGATIVE (NEGATIVE)
[2025-03-16] MEDS: ATORVASTATIN 20 MG TAB PO SCH (21:51)
[2025-03-16] MEDS: MUPIROCIN 2% OINT 15gm or 22gm FOR MRSA NARES EACHNOSTRI SCH (22:01)
[2025-03-17] VITALS (17 sets, daily range): BP systolic 89–116; BP diastolic 53–74; PULSE 76–89; RESP 18–20; TEMP 97.5–98.2; O2SAT 94–100
[2025-03-17] MEDS ORDERED: METO25TA5 PO (01:56)
[2025-03-17] MEDS ORDERED: OMEP20TA PO (01:56)
[2025-03-17] MEDS ORDERED: CARB200T PO (01:56)
[2025-03-17] MEDS ORDERED: RIVSET PO (01:56)
[2025-03-17] MEDS ORDERED: BUME2TAB5 PO (01:56)
[2025-03-17] MEDS ORDERED: SACU1TAB PO (01:56)
[2025-03-17] MEDS ORDERED: ONDA-155 PO (01:56)
[2025-03-17] MEDS ORDERED: SERT-206 PO (01:56)
[2025-03-17] MEDS ORDERED: FAMO-12 PO (01:56)
[2025-03-17] MEDS ORDERED: CHOL20007 OR (01:56)
[2025-03-17] MEDS ORDERED: DIPH-753 PO (01:56)
[2025-03-17 08:33] LABS: Hematocrit 45.5 % (36.0-46.0); Hemoglobin 15.0 g/dL (12.2-16.2); Mean Corpuscular Hemoglobin 31.1 pg (28.0-32.0); Mean Corpuscular Volume 94.6 fL (80.0-100.0); Nucleated Red Blood Cells % 0.1 %
[2025-03-17 08:42] LABS: Chloride 100 mmol/L (98-107); Potassium 3.9 mmol/L (3.5-5.1); Sodium 142 mmol/L (136-145)
[2025-03-17 08:43] LABS: Anion Gap 8 (5-15)
[2025-03-17 08:44] LABS: Calcium 9.3 mg/dL (8.7-10.4)
[2025-03-17 08:48] LABS: BUN/Creatinine Ratio 16.7 (10.0-20.0); Blood Urea Nitrogen 15 mg/dL (9-23)
[2025-03-17 09:01] LABS: Carbon Dioxide 34 mmol/L (20-31); Glucose 135 mg/dL (74-106)
[2025-03-17] MEDS: SODIUM CHLORIDE 0.9% 500 ML IV ONE (10:00)
--- NOTE | 2025-03-17 10:57 | DVHPNRES ---
Progress Note Date Seen: Mar 17, 2025 Resident Creating Document: ELKIN ACE RESIDENT Medical Necessity Reason Pt with a Central, PICC or Fol: Yes The following are medically ne: Interiano Catheter Subjective Review of Systems Zandra Raygoza is a 69-year-old female, Bed bound with a past medical history presented for evaluation of bloody urine. patient reports 1 week history of noticing blood in her urine and states that over the past 3 years it has become worse. It is associated with dysuria, lower abdominal, nausea, chills, but no vomiting, no burning micturition and is nonradiating nature. she has a history of COPD and is currently on nasal cannula oxygen at 4 L. she also reports some shortness of breath with nonproductive cough. PMH COPD, CHF, arthritis, AFib, dyslipidemia, hypertension, hypothyroidism PSH: Pacemaker, cholecystectomy, bladder lift family history: Noncontributory to this case Social history: Patient lives in a boarding care facility in [place]. She denies ever smoking, drinking alcohol, or any other drugs. Allergy: penicillin ( throat closes up), sulfa antibiotics ( itching and swelling of the body) home medicine: patient reports she can not remember all the names of the medications but takes for all of her conditions ROS Patient was seen and examined in the bedside. She continues to have blood in the urine, reports that her abdominal pain has improved. She has slight difficulty in breathing. Rest of the system are currently negative Objective vital signs Vital Sign Date Time Temp Pulse Resp B/P (MAP) Pulse Ox O2 Delivery O2 Flow Rate FiO2 03/17/25 10:00 88 18 100/55 (70) 03/17/25 09:27 98.2 99 98.2 03/17/25 06:27 Nasal Cannula 4.0 03/17/25 06:27 36 Total Intake and Output 03/16/25 03/16/25 03/17/25 15:00 23:00 07:00 Intake Total 300 ml 640 ml 225 ml Output Total 1725 ml 1100 ml Balance 300 ml -1085 ml -875 ml medications Current Medications Medications Dose Ordered Sig/Darshana Route Start Time Stop Time Status Last Admin Dose Admin Atenolol 50 mg BID PO 03/16/25 10:00 03/16/25 21:52 50 MG Carbamazepine 200 mg BID PO 03/16/25 10:00 03/17/25 09:01 200 MG Atorvastatin Calcium 20 mg HS PO 03/16/25 22:00 03/16/25 21:51 20 MG Levothyroxine Sodium 50 mcg QAM@0600 PO 03/16/25 06:00 03/17/25 05:40 50 MCG Ceftriaxone Sodium 50 ml @ 100 mls/hr DAILY@09 IV 03/16/25 09:00 03/17/25 08:49 100 MLS/HR Azithromycin 250 ml @ 125 mls/hr DAILY IV 03/16/25 10:00 03/17/25 09:03 125 MLS/HR Acetaminophen/ Hydrocodone Bitart 1 tab Q4HP PRN PO 03/15/25 23:30 Ondansetron HCl 4 mg Q4HP PRN IV 03/15/25 23:30 Acetaminophen 650 mg Q6HP PRN PO 03/15/25 23:30 Nitroglycerin 0.4 mg Q5MINP PRN SL 03/15/25 23:30 Morphine Sulfate 2 mg Q30M PRN IV 03/15/25 23:30 Albuterol 2.5 mg Q6HWA [facility] 03/16/25 10:45 03/17/25 06:26 2.5 MG Ipratropium [place] 0.5 mg Q4HWA [facility] 03/16/25 14:00 Cancel Tamsulosin HCl 0.4 mg QPM PO 03/16/25 18:00 03/16/25 18:38 0.4 MG Ipratropium [place] 0.5 mg Q6HWA [facility] 03/16/25 12:00 03/17/25 06:27 0.5 MG Mupirocin 1 applic BID EACHNOSTRI 03/16/25 22:00 03/21/25 21:59 03/17/25 09:01 1 APPLIC Examination Pt is lying on bed General Appearance: Alert, Oriented X3, Cooperative, mild distress, obese HEENT: Atraumatic, Mucous membranes moist/pink, on 4 L of oxygen via nasal cannula Respiratory: crackles in the left lung, wheezing present Cardiovascular: Regular rate, Normal S1, Normal S2, No murmurs Abdominal: Active bowel sounds, Soft, no distention, tenderness present in suprapubic region and lower right quadrant, right flank Extremities: No edema, Normal pulses, mild non pitting edema, unable to move hip and knee Skin: statis dermatitis in B/L legs, patient has rash on the mid back Neuro: Normal speech, decreased sensation in B/l feet Psych/Mental Status: Mental status NL, Mood NL Nurse was there as bottle tester during examination laboratory and microbiology Laboratory Tests 03/17/25 08:08 Test 03/17/25 08:08 Range/Units Serum Glucose 135 H 74-106 mg/dL Microbiology Date/Time Source Procedure Growth Status 03/16/25 03:22 Nose MRSA Screen - Final Methicillin Resistant S.aureus Complete 03/15/25 17:57 Blood Blood Culture - Preliminary NO GROWTH AFTER 24 HOURS OF INCUBATION. Resulted 03/15/25 17:50 Voided Urine Urine Culture - Preliminary Resulted Labs and/or images reviewed: Labs reviewed by me, Image(s) reviewed by me Problem List/Assessment/Plan Problem List/Assessment/Plan #Sepsis possible due to acute complicated cystitis # ? pyelonephritis -Seen in urinalysis -IVF administered -Ceftriaxone - Urine culture prelim shows >100,000 CFU/mL Gram Negative Rods #Right kidney nephrolithiasis without hydronephrosis -Seen in CT abdomen and pelvis-Multiple small subcentimeter calculi are seen in the right kidney. and Right renal nephrolithiasis without hydronephrosis. -IVF administered -tamsulosin -Urologic consultation # Arthritis pain in the hands -Acetaminophen -outpatient follow-up with plant technician/control room operator # Possible Acute Gram positive or negative pneumonia - X-ray shows pulmonary vascular congestion and bilateral patchy airspace opacities. 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 Left renal angiomyolipoma measures up to 2.8 cm - O/P f/u # AFib with RVR and secondary hypercoagulable state # Pacemaker status -Dr. Rader is her primary care doctor and has been consulted (IVF, Abx suggested) # Hypothyroidism -Continue levothyroxine # Lumbar radiculopathy -Outpatient follow-up #Morbid obesity -Dietary area counselor given # Skin rash -would care consultation done and cleansed lt upper back, sacral buttocks with mild soap and water, patted dry -applied Z Guard cream -Outpatient follow-up Patient has possible sepsis due to acute complicated cystitis and possible pylonephritis. continue patient on ceftriaxone, and BP med was held today as BP was on the lower side (110/64) and bolus IVF give, check tommorow on her BP. urology consult pending GI prophylaxis: not indicated DVT prophylaxis: SCD Diet: as tolerated, low sodium Goals of care discussed with the patient for more than 27 minutes: Full code status Case discussed with Dr. Marcelo patient and nurse. Plan discussed with: Patient, Other (RN) Dietary Evaluation Review Recommendations by RD: Dietary education by RD Comments: 1) Initiate MVI @ 1 tb qd 2) Encourage optimal PO intake 3) Refer to outpatient RD for weight management 4) Follow-up with urologist, advertising traffic manager and service provider 5) Continue to monitor I&O, labs, and skin integrity Expected Outcomes/Goals: 1) appetite and labs to improve 2) wound to improve 3) f/u in 3-5 days Date of Service: Mar 17, 2025 Billing Provider: TAMMI MARCELO MD Common Visit Codes: [id number] INP/OBS CARE(HIGH) ELKIN ACE RESIDENT Mar 17, 2025 10:57 SHAYY OBRIEN RESIDENT Mar 18, 2025 10:31 TAMMI MARCELO MD Mar 19, 2025 12:56
[2025-03-17] MEDS: ACETAMINOPHEN 325 MG TAB PO PRN (14:13)
[2025-03-17] MEDS: CYANOCOBALAMIN (B-12) 1000 MCG/1 ML VIAL IM ONE (14:20)
[2025-03-18] VITALS (14 sets, daily range): BP systolic 99–126; BP diastolic 58–80; PULSE 70–111; RESP 18–19; TEMP 97.6–98; O2SAT 95–100
[2025-03-18 09:47] LABS: Hematocrit 44.9 % (36.0-46.0); Hemoglobin 15.0 g/dL (12.2-16.2); Mean Corpuscular Hemoglobin 31.4 pg (28.0-32.0); Mean Corpuscular Volume 94.2 fL (80.0-100.0); Nucleated Red Blood Cells % 0.0 %
[2025-03-18] MEDS: CYANOCOBALAMIN 500 MCG TAB PO SCH (10:00)
--- NOTE | 2025-03-18 10:20 | DVHPNRES ---
Progress Note Date Seen: Mar 18, 2025 Resident Creating Document: SHAYY OBRIEN RESIDENT Medical Necessity Reason Pt with a Central, PICC or Fol: Yes The following are medically ne: Interiano Catheter Subjective Review of Systems JUNE- Zandra Raygoza is a 69-year-old female, Bed bound with a past medical history presented for evaluation of bloody urine. patient reports 1 week history of noticing blood in her urine and states that over the past 3 years it has become worse. It is associated with dysuria, lower abdominal, nausea, chills, but no vomiting, no burning micturition and is nonradiating nature. she has a history of COPD and is currently on nasal cannula oxygen at 4 L. she also reports some shortness of breath with nonproductive cough. PMH COPD, CHF, arthritis, AFib, dyslipidemia, hypertension, hypothyroidism PSH: Pacemaker, cholecystectomy, bladder lift family history: Noncontributory to this case Social history: Patient lives in a boarding care facility in [place]. She denies ever smoking, drinking alcohol, or any other drugs. Allergy: penicillin ( throat closes up), sulfa antibiotics ( itching and swelling of the body) home medicine: patient reports she can not remember all the names of the medications but takes for all of her conditions 03/18 interval events The patient reports of exacerbation of her arthritis pain in the hands. She denies any chest pain shortness of breath, fever, chills or any other complaints. ROS Patient was seen and examined in the bedside. Patient reports exacerbation of her arthritis pain in the hands. Rest of the system are currently negative Objective vital signs Vital Sign Date Time Temp Pulse Resp B/P (MAP) Pulse Ox O2 Delivery O2 Flow Rate FiO2 03/18/25 08:43 97.6 70 18 102/58 (73) 96 97.6 03/18/25 08:00 Nasal Cannula* 4 36 Total Intake and Output 03/17/25 03/17/25 03/18/25 14:59 22:59 06:59 Intake Total 800 ml 200 ml 240 ml Output Total 1000 ml 950 ml Balance 800 ml -800 ml -710 ml medications Current Medications Medications Dose Ordered Sig/Darshana Route Start Time Stop Time Status Last Admin Dose Admin Atenolol 50 mg BID PO 03/16/25 10:00 03/16/25 21:52 50 MG Carbamazepine 200 mg BID PO 03/16/25 10:00 03/17/25 22:00 200 MG Atorvastatin Calcium 20 mg HS PO 03/16/25 22:00 03/17/25 22:00 20 MG Levothyroxine Sodium 50 mcg QAM@0600 PO 03/16/25 06:00 03/18/25 05:46 50 MCG Ceftriaxone Sodium 50 ml @ 100 mls/hr DAILY@09 IV 03/16/25 09:00 03/17/25 08:49 100 MLS/HR Azithromycin 250 ml @ 125 mls/hr DAILY IV 03/16/25 10:00 03/17/25 09:03 125 MLS/HR Acetaminophen/ Hydrocodone Bitart 1 tab Q4HP PRN PO 03/15/25 23:30 Ondansetron HCl 4 mg Q4HP PRN IV 03/15/25 23:30 Acetaminophen 650 mg Q6HP PRN PO 03/15/25 23:30 03/17/25 14:13 650 MG Nitroglycerin 0.4 mg Q5MINP PRN SL 03/15/25 23:30 Morphine Sulfate 2 mg Q30M PRN IV 03/15/25 23:30 Albuterol 2.5 mg Q6HWA [facility] 03/16/25 10:45 03/18/25 05:55 2.5 MG Ipratropium [place] 0.5 mg Q4HWA [facility] 03/16/25 14:00 Cancel Tamsulosin HCl 0.4 mg QPM PO 03/16/25 18:00 03/17/25 17:37 0.4 MG Ipratropium [place] 0.5 mg Q6HWA [facility] 03/16/25 12:00 03/18/25 05:55 0.5 MG Mupirocin 1 applic BID EACHNOSTRI 03/16/25 22:00 03/21/25 21:59 03/17/25 22:00 1 APPLIC Cyanocobalamin 500 mcg DAILY PO 03/18/25 10:00 laboratory and microbiology Laboratory Tests 03/18/25 08:44 03/17/25 08:08 Test 03/17/25 08:08 Range/Units Serum Glucose 135 H 74-106 mg/dL Microbiology Date/Time Source Procedure Growth Status 03/16/25 03:22 Nose MRSA Screen - Final Methicillin Resistant S.aureus Complete 03/15/25 17:57 Blood Blood Culture - Preliminary NO GROWTH AFTER 48 HOURS OF INCUBATION. Resulted 03/15/25 17:50 Voided Urine Urine Culture - Final Escherichia coli Complete Problem List/Assessment/Plan Problem List/Assessment/Plan #Sepsis possible due to acute complicated cystitis # ? pyelonephritis -Seen in urinalysis -IVF administered -Ceftriaxone - Urine culture prelim shows >100,000 CFU/mL Gram Negative Rods #Right kidney nephrolithiasis without hydronephrosis -Seen in CT abdomen and pelvis-Multiple small subcentimeter calculi are seen in the right kidney. and Right renal nephrolithiasis without hydronephrosis. -IVF administered -tamsulosin -Urologic consultation # Arthritis pain in the hands -Acetaminophen -outpatient follow-up with social media strategist # Possible Acute Gram positive or negative pneumonia - X-ray shows pulmonary vascular congestion and bilateral patchy airspace opacities. 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 Left renal angiomyolipoma measures up to 2.8 cm - O/P f/u # AFib with RVR and secondary hypercoagulable state # Pacemaker status -Dr. Rader is her primary care doctor and has been consulted (IVF, Abx suggested) # Hypothyroidism -Continue levothyroxine # Lumbar radiculopathy -Outpatient follow-up #Morbid obesity -Dietary outreach counselor given # Skin rash -would care consultation done and cleansed lt upper back, sacral buttocks with mild soap and water, patted dry -applied Z Guard cream -Outpatient follow-up Patient has possible sepsis due to acute complicated cystitis and possible pylonephritis. continue patient on ceftriaxone, and BP med was held today as BP was on the lower side (110/64) and bolus IVF give, check tommorow on her BP. urology consult pending GI prophylaxis: not indicated DVT prophylaxis: SCD Diet: as tolerated, low sodium Goals of care discussed with the patient for more than 27 minutes: Full code status Case discussed with Dr. Marcelo patient and nurse. Plan discussed with: Patient, Other (RN) Dietary Evaluation Review Recommendations by RD: Dietary education by RD Comments: 1) Initiate MVI @ 1 tb qd 2) Encourage optimal PO intake 3) Refer to outpatient RD for weight management 4) Follow-up with urologist, top steep tender and harness tier 5) Continue to monitor I&O, labs, and skin integrity Expected Outcomes/Goals: 1) appetite and labs to improve 2) wound to improve 3) f/u in 3-5 days Plan discussed with: Patient, Other (rn) My Orders My Orders Orders - SHAYY OBRIEN RESIDENT Procedure Category Date Status Time Acetaminophen Tab Or PHA 03/18/25 Transmitted Cap (Tylenol Tablet 10:15 Dietary Evaluation Review Recommendations by RD: Dietary education by RD Comments: 1) Initiate MVI @ 1 tb qd 2) Encourage optimal PO intake 3) Refer to outpatient RD for weight management 4) Follow-up with urologist, top steep tender and harness tier 5) Continue to monitor I&O, labs, and skin integrity Expected Outcomes/Goals: 1) appetite and labs to improve 2) wound to improve 3) f/u in 3-5 days Date of Service: Mar 18, 2025 Billing Provider: TAMMI MARCELO MD Common Visit Codes: [id number] INP/OBS CARE(HIGH) SHAYY OBRIEN RESIDENT Mar 18, 2025 10:20 TAMMI MARCELO MD Mar 19, 2025 12:58
[2025-03-18] MEDS ORDERED: ACETAMINOPHEN 325 MG TAB PO PRN (10:30)
--- NOTE | 2025-03-18 10:51 | DVHINCON2 ---
Date of service: Mar 18, 2025 Referring Physician [facility] Reason for Consultation transient gross hematuria History of Present Illness from AV postacute with mild hematuria now cleared in bowling;pt non ambulatory;denies dysuria, visible blood prior or UTIs,no hx stones Past Medical History reviewed Past Surgical History reviewed Family History: Alzheimer's disease G8 MOTHER Cardiovascular disease G8 FATHER FH: aneurysm FH: bipolar disorder G8 MOTHER FH: heart failure FH: prostate cancer G8 FATHER Allergies: Coded Allergies: Enoxaparin (Verified Allergy, Severe, BURNING ALL OVER BODY AND LOWER BACK PAIN-PATIENT REPORTS, 10/02/18) Penicillins (Verified Allergy, Unknown, 08/18/22) some penicillins, pt doesn't know names, states Prasanth Ac knows. Sulfa Antibiotics (Verified Allergy, Unknown, 12/15/16) Home Meds Reported Medications Sacubitril-Valsartan (Entresto 24-26 mg) 1 Tab Tab, 1 TAB PO BID, TAB 03/17/25 Cholecalciferol (VITAMIN D3) 2,000 Unit Tab, 2000 UNIT OR DAILY, TAB 03/17/25 Carbamazepine (Tegretol) 200 Mg Tab, 200 MG PO DAILY, TAB 3 TABS PO AT BEDTIME FOR BIPOLAR 03/17/25 Ondansetron HCl (Ondansetron) 4 Mg Tab, 4 MG PO TID, TAB 03/17/25 Diphenhydramine Hcl (Diphenhydramine Hcl) 25 Mg Cap, 25 MG PO DAILYP, MG 03/17/25 Bumetanide (Bumetanide) 2 Mg Tab, 2 MG PO DAILY for 30 Days, MG 03/17/25 Rivaroxaban (Xarelto) 10 Mg Tab, 10 MG PO DAILY, TAB 03/17/25 Sertraline Hcl (Sertraline Hcl) 50 Mg Tab, 100 MG PO DAILY for 30 Days, MG 03/17/25 Metoprolol Tartrate (Metoprolol Tartrate) 25 Mg Tab, 25 MG PO BID for 30 Days, MG 03/17/25 Famotidine (Famotidine) 20 Mg Tab, 20 MG PO BID for 30 Days, MG 03/17/25 Omeprazole (Gnp Omeprazole) 20 Mg Tab, 20 MG PO, TAB 03/17/25 Cephalexin ( Keflex 500) 500 Mg Cap, 1 CAP PO QID for prophylaxis for 7 Days, CAP 08/21/22 Olmesartan Medoxomil-Hydrochlo (Benicar Hct) 1 Tab Tab, 1 TAB PO DAILY for HTN/CHF 08/18/22 Metolazone (Metolazone) 5 Mg Tab, 5 MG PO DAILY for HTN,FLUID RETENTION, TAB 08/18/22 Simvastatin (Zocor) 10 Mg Tab, 20 MG PO HS for CHOLESTEROL, TAB 08/18/22 Gabapentin (Gabapentin) 300 Mg Cap, 300 MG PO TID PRN for PAIN SCALE 1 THRU 6 08/18/22 Carbamazepine (Carbamazepine) 200 Mg Tab, 600 MG PO HS, TAB 08/18/22 Buspirone HCl (Buspirone Hydrochloride) 15 Mg Tab, 10 MG PO TID for ANXIETY/DEPRESSION, TAB 08/18/22 Atenolol (Atenolol) 50 Mg Tab, 50 MG PO BID for HTN 08/18/22 Current Medications Current Medications Medications (Trade) Dose Ordered Sig/Darshana Route PRN Reason Start Time Stop Time Status Last Admin Cyanocobalamin (Vitamin B-12) 500 mcg DAILY PO 03/18/25 10:00 Acetaminophen (Tylenol Tablet) 650 mg Q8HP PRN PO MODERATE PAIN (4-6 PAIN SCALE) 03/18/25 10:30 Review of Systems reviewed Vital Signs Vital Signs Date Time Temp Pulse Resp B/P (MAP) Pulse Ox O2 Delivery O2 Flow Rate FiO2 03/18/25 08:43 97.6 70 18 102/58 (73) 96 97.6 03/18/25 08:00 Nasal Cannula* 4 36 Physical Exam urine clear bowling Labs/Diagnostic Data Labs Test 03/18/25 08:44 03/17/25 08:08 03/16/25 12:00 03/16/25 11:20 Range/Units White Blood Count 10.3 4.4-10.8 10^3/uL Red Blood Count 4.77 4.0-5.20 10^6/uL Hemoglobin 15.0 12.2-16.2 g/dL Hematocrit 44.9 36.0-46.0 % Mean Corpuscular Volume 94.2 80.0-100.0 fL Mean Corpuscular Hemoglobin 31.4 28.0-32.0 pg Mean Corpuscular Hemoglobin Concent 33.4 32.0-36.0 g/dL Red Cell Distribution Width 15.0 H 11.8-14.3 % Platelet Count 310 140-450 10^3/uL Mean Platelet Volume 7.8 6.9-10.8 fL Neutrophils (%) (Auto) 69.9 37.0-80.0 % Lymphocytes (%) (Auto) 18.7 10.0-50.0 % Monocytes (%) (Auto) 8.0 0.0-12.0 % Eosinophils (%) (Auto) 2.8 0.0-7.0 % Basophils (%) (Auto) 0.6 0.0-2.0 % Neutrophils # (Auto) 7.2 1.6-8.6 10 ^3/uL Lymphocytes # (Auto) 1.9 0.4-5.4 10 ^3/uL Monocytes # (Auto) 0.8 0-1.3 10 ^3/uL Eosinophils # (Auto) 0.3 0-0.8 10 ^3/uL Basophils # (Auto) 0.1 0-0.2 10 ^3/uL Nucleated Red Blood Cells 0.0 % Sodium Level 142 136-145 mmol/L Potassium Level 3.9 3.5-5.1 mmol/L Chloride Level 100 98-107 mmol/L Carbon Dioxide Level 34 H 20-31 mmol/L Anion Gap 8 5-15 Blood Urea Nitrogen 15 9-23 mg/dL Creatinine 0.90 0.550-1.02 mg/dL Glomerular Filtration Rate Calc 68 >90 mL/min BUN/Creatinine Ratio 16.7 10.0-20.0 Serum Glucose 135 H 74-106 mg/dL Calcium Level 9.3 8.7-10.4 mg/dL Influenza Type A Antigen Negative Negative Influenza Type B Antigen Negative Negative SARS-CoV-2 Antigen (Rapid) Negative NEGATIVE Lactic Acid Level 1.9 0.4-2.0 mmol/L Test 03/16/25 05:42 03/15/25 17:57 03/15/25 17:50 Range/Units Prothrombin Time 11.2 9.3-11.8 sec Prothrombin Time INR 1.06 0.9-1.15 Activated Partial Thromboplast Time 28.2 24.5-34.5 SEC Total Bilirubin 0.3 0.2-1.0 mg/dL Direct Bilirubin 0.1 <0.3 mg/dL Aspartate Amino Transferase (AST) 14 13-40 U/L Alanine Aminotransferase (ALT) 11 7-40 U/L Alkaline Phosphatase 84 46-116 U/L Total Protein 6.4 5.7-8.2 g/dL Albumin 3.7 3.2-4.8 g/dL Vitamin B12 Level 402 211-911 pg/mL Vitamin D 25-Hydroxy 38.2 30.0-100 ng/mL Thyroid Stimulating Hormone (TSH) 3.79 0.55-4.78 uIU/mL B-Type Natriuretic Peptide 116.77 0-100 pg/mL Urine Color Dark-brown Yellow Urine Clarity Ex.turbid Clear Urine pH 6.0 5.0-9.0 Urine Specific [place] 1.022 1.001-1.035 Urine Protein 3+ H Negative Urine Ketones Negative Negative Urine Blood 3+ H Negative /uL Urine Nitrite Negative Negative Urine Bilirubin Negative Negative Urine Urobilinogen Normal Negative mg/dL Urine Leukocyte Esterase 2+ Negative /uL Urine RBC 3568 0 - 4 /hpf Urine Microscopic WBC 285 H 0-5 /HPF Urine Squamous Epithelial Cells Few <5 /hpf Urine Bacteria None seen None Seen /hpf Urine Hyaline Casts Few 0 - 2 /lpf Urine Glucose Trace Normal mg/dL Microbiology Date/Time Source Procedure Growth Status 03/16/25 03:22 Nose MRSA Screen - Final Methicillin Resistant S.aureus Complete 03/15/25 17:57 Blood Blood Culture - Preliminary NO GROWTH AFTER 48 HOURS OF INCUBATION. Resulted 03/15/25 17:50 Voided Urine Urine Culture - Final Escherichia coli Complete Assessment transient hematuria,multiple renal cysts on CT possible AML as well Plan/Recommendation renal US Plan discussed with: Patient TAVARES CARDOSO MD Mar 18, 2025 10:51
[2025-03-18] MEDS: SODIUM CHLORIDE 0.9% 1,000 ML IV SCH (16:00)
--- NOTE | 2025-03-18 19:26 | DVH ---
RENAL ULTRASOUND CLINICAL HISTORY: multiple renal cysts TECHNIQUE: Multiple grayscale ultrasound images were obtained through the kidneys and urinary bladder . COMPARISON: None FINDINGS: Nondiagnostic exam as the patient unable to continue the examination and the kidneys were not visuali zed.
[2025-03-18] MEDS: ACETAMINOPHEN 325 MG TAB PO PRN (21:11)
[2025-03-19] VITALS (16 sets, daily range): BP systolic 97–116; BP diastolic 43–72; PULSE 74–101; RESP 16–20; TEMP 97.7–98.4; O2SAT 96–100
[2025-03-19] MEDS: HYDROcodone-ACET 5/325MG TAB PO PRN (10:10)
--- NOTE | 2025-03-19 10:20 | DVHPNRES ---
Progress Note Date Seen: Mar 19, 2025 Resident Creating Document: ELKIN ACE RESIDENT Medical Necessity Reason Pt with a Central, PICC or Fol: Yes The following are medically ne: Interiano Catheter Subjective Review of Systems Zandra Raygoza is a 69-year-old female, Bed bound with a past medical history presented for evaluation of bloody urine. patient reports 1 week history of noticing blood in her urine and states that over the past 3 years it has become worse. It is associated with dysuria, lower abdominal, nausea, chills, but no vomiting, no burning micturition and is nonradiating nature. she has a history of COPD and is currently on nasal cannula oxygen at 4 L. she also reports some shortness of breath with nonproductive cough. PMH COPD, CHF, arthritis, AFib, dyslipidemia, hypertension, hypothyroidism PSH: Pacemaker, cholecystectomy, bladder lift Family history: Noncontributory to this case Social history: Patient lives in a boarding care facility in [place]. She denies ever smoking, drinking alcohol, or any other drugs. Allergy: penicillin ( throat closes up), sulfa antibiotics ( itching and swelling of the body) home medicine: patient reports she can not remember all the names of the medications but takes for all of her conditions ROS :Patient was seen and examined in the bedside. She continues to have blood in the urine, reports that her right flank pain remains, 7/10 intensity today and yesterday she was unable to do the usg exam as the probe caused pain and she imer nauseated. Patient also has not passed stool in five days but says she doesn't want lactulose, and that she will go home and evacuate her bowels. Rest of the system are currently negative Objective vital signs Vital Sign Date Time Temp Pulse Resp B/P (MAP) Pulse Ox O2 Delivery O2 Flow Rate FiO2 03/19/25 10:07 82 112/62 03/19/25 09:00 97.8 20 98 97.8 03/19/25 08:04 Nasal Cannula* 4 36 Total Intake and Output 03/18/25 03/18/25 03/19/25 15:00 23:00 07:00 Intake Total 50 ml 1038 ml 1250 ml Output Total 1700 ml 1400 ml Balance 50 ml -662 ml -150 ml medications Current Medications Medications Dose Ordered Sig/Darshana Route Start Time Stop Time Status Last Admin Dose Admin Atenolol 50 mg BID PO 03/16/25 10:00 03/19/25 10:07 50 MG Carbamazepine 200 mg BID PO 03/16/25 10:00 03/19/25 10:05 200 MG Atorvastatin Calcium 20 mg HS PO 03/16/25 22:00 03/18/25 21:10 20 MG Levothyroxine Sodium 50 mcg QAM@0600 PO 03/16/25 06:00 03/19/25 06:04 50 MCG Ceftriaxone Sodium 50 ml @ 100 mls/hr DAILY@09 IV 03/16/25 09:00 03/19/25 10:05 100 MLS/HR Azithromycin 250 ml @ 125 mls/hr DAILY IV 03/16/25 10:00 03/19/25 10:05 125 MLS/HR Acetaminophen/ Hydrocodone Bitart 1 tab Q4HP PRN PO 03/15/25 23:30 03/19/25 10:10 1 TAB Ondansetron HCl 4 mg Q4HP PRN IV 03/15/25 23:30 Nitroglycerin 0.4 mg Q5MINP PRN SL 03/15/25 23:30 Morphine Sulfate 2 mg Q30M PRN IV 03/15/25 23:30 Albuterol 2.5 mg Q6HWA [facility] 03/16/25 10:45 03/19/25 07:22 2.5 MG Ipratropium [place] 0.5 mg Q4HWA [facility] 03/16/25 14:00 Cancel Tamsulosin HCl 0.4 mg QPM PO 03/16/25 18:00 03/18/25 17:01 0.4 MG Ipratropium [place] 0.5 mg Q6HWA [facility] 03/16/25 12:00 03/19/25 07:22 0.5 MG Mupirocin 1 applic BID EACHNOSTRI 03/16/25 22:00 03/21/25 21:59 03/19/25 10:05 1 APPLIC Cyanocobalamin 500 mcg DAILY PO 03/18/25 10:00 03/19/25 10:05 500 MCG Sodium Chloride 1,000 ml @ 75 mls/hr [id number] IV 03/18/25 16:00 03/18/25 21:19 75 MLS/HR Acetaminophen 650 mg Q8HP PRN PO 03/18/25 16:00 03/18/25 21:11 650 MG Examination Pt is lying on bed General Appearance: Alert, Oriented X3, Cooperative, mild distress, obese HEENT: Atraumatic, Mucous membranes moist/pink, on 4 L of oxygen via nasal cannula Respiratory: crackles in the left lung, wheezing present Cardiovascular: Regular rate, Normal S1, Normal S2, No murmurs Abdominal: Active bowel sounds, Soft, no distention, tenderness right flank Extremities: No edema, Normal pulses, mild non pitting edema, unable to move hip and knee Skin: statis dermatitis in B/L legs, patient has rash on the mid back Neuro: Normal speech, decreased sensation in B/l feet Psych/Mental Status: Mental status NL, Mood NL Nurse was there as risk control consultant during examination laboratory and microbiology Laboratory Tests 03/18/25 08:44 03/17/25 08:08 Test 03/17/25 08:08 Range/Units Serum Glucose 135 H 74-106 mg/dL Microbiology Date/Time Source Procedure Growth Status 03/16/25 03:22 Nose MRSA Screen - Final Methicillin Resistant S.aureus Complete 03/15/25 17:57 Blood Blood Culture - Preliminary NO GROWTH AFTER 72 HOURS OF INCUBATION. Resulted 03/15/25 17:50 Voided Urine Urine Culture - Final Escherichia coli Complete Labs and/or images reviewed: Labs reviewed by me, Image(s) reviewed by me Problem List/Assessment/Plan Problem List/Assessment/Plan #Sepsis possible due to acute complicated cystitis # ? pyelonephritis -Seen in urinalysis -IVF administered -Ceftriaxone - Urine culture prelim shows >100,000 CFU/mL Gram Negative Rods #Right kidney nephrolithiasis without hydronephrosis -Seen in CT abdomen and pelvis-Multiple small sub centimeter calculi are seen in the right kidney and Right renal nephrolithiasis without hydronephrosis. -IVF administered -tamsulosin -Urologic consultation suggested renal US. Patient was unable to tolerate probe (caused pain). Repeat renal US today under morphine # Possible Acute Gram positive or negative pneumonia - X-ray shows pulmonary vascular congestion and bilateral patchy airspace opacities. 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 Left renal angiomyolipoma measures up to 2.8 cm - O/P f/u # AFib with RVR and secondary hypercoagulable state # Pacemaker status -Dr. Rader is her primary care doctor and has been consulted (IVF, Abx suggested) # Hypothyroidism -Continue levothyroxine # Lumbar radiculopathy -Outpatient follow-up #Morbid obesity -Dietary counseling director given # Skin rash, unknown etiology -would care consultation done and cleansed lt upper back, sacral buttocks with mild soap and water, patted dry -applied Z Guard cream -Outpatient follow-up # Multiple joints Arthritis -Patient given pain medication-acetaminophen Patient has possible sepsis due to acute complicated cystitis and possible pylonephritis. continue patient on ceftriaxone, and BP med was held today as BP was on the lower side (110/64) and bolus IVF give, check tommorow on her BP. urology consult pending GI prophylaxis: not indicated DVT prophylaxis: SCD Diet: as tolerated, low sodium Goals of care discussed with the patient for more than 27 minutes: Full code status Case discussed with Dr. Marcelo patient and nurse. Plan discussed with: Patient, Other (rn) My Orders My Orders Orders - ELKIN ACE RESIDENT Procedure Category Date Status Time Basic Metabolic Panel LAB 03/20/25 Verified 04:00 Dietary Evaluation Review Recommendations by RD: Dietary education by RD Comments: 1) Initiate MVI @ 1 tb qd 2) Encourage optimal PO intake 3) Refer to outpatient RD for weight management 4) Follow-up with urologist, port captain and energy rater 5) Continue to monitor I&O, labs, and skin integrity Expected Outcomes/Goals: 1) appetite and labs to improve 2) wound to improve 3) f/u in 3-5 days Date of Service: Mar 19, 2025 Billing Provider: TAMMI MARCELO MD Common Visit Codes: [id number] INP/OBS CARE(HIGH) ELKIN ACE RESIDENT Mar 19, 2025 10:20 TAMMI MARCELO MD Mar 19, 2025 23:14
[2025-03-19] MEDS: MORPHINE SULFATE INJ 2 MG/ml SYRG IV ONE (12:04)
--- NOTE | 2025-03-19 14:28 | DVH ---
EXAM DESCRIPTION: RENAL ULTRASOUND CLINICAL HISTORY: evaluation for right kidney nephrolitiasis COMPARISON: CT abdomen pelvis 03/15/25. TECHNIQUE: Multiplanar ultrasound examination of the kidneys and urinary bladder was performed. FINDINGS: Limited study with poor visualization of the kidneys. The right kidney measures 11.4 cm. No renal calculus. No hydronephrosis.. No solid renal masses. 5.3 cm simple right renal cyst. The left kidney measures 10.4 cm. No renal calculus. No hydronephrosis.. No solid renal masses. 2.6 c m left renal cyst, not well visualized. The bladder was not visualized IMPRESSION: Limited study with poor visualization. No hydronephrosis or renal calculi.
[2025-03-20] VITALS (16 sets, daily range): BP systolic 87–126; BP diastolic 50–72; PULSE 66–129; RESP 14–20; TEMP 97.2–98.7; O2SAT 94–100
[2025-03-20 07:14] LABS: Anion Gap 6 (5-15); Carbon Dioxide 30 mmol/L (20-31); Chloride 104 mmol/L (98-107); Potassium 4.7 mmol/L (3.5-5.1); Sodium 140 mmol/L (136-145)
[2025-03-20 07:15] LABS: Calcium 9.2 mg/dL (8.7-10.4)
[2025-03-20 07:20] LABS: BUN/Creatinine Ratio 17.6 (10.0-20.0); Blood Urea Nitrogen 16 mg/dL (9-23); Glucose 101 mg/dL (74-106)
[2025-03-20] MEDS ORDERED: DOXY1CAP58 PO (13:07)
[2025-03-20] MEDS ORDERED: CEPH250C PO (13:07)
[2025-03-20] MEDS ORDERED: TAMS-35 PO (13:07)
--- NOTE | 2025-03-20 13:39 | DVHDSRES ---
Discharge Summary Date of Admission Resident Creating Document: ELKIN ACE RESIDENT Mar 15, 2025 at 23:21 Date of Discharge: Mar 20, 2025 Admitting Diagnosis #Sepsis possible due to acute complicated cystitis Labs/Diagnostic Data: Laboratory Results Test 03/20/25 06:24 03/18/25 08:44 03/16/25 12:00 03/16/25 11:20 Sodium Level 140 mmol/L (136-145) Potassium Level 4.7 mmol/L (3.5-5.1) Chloride Level 104 mmol/L (98-107) Carbon Dioxide Level 30 mmol/L (20-31) Anion Gap 6 (5-15) Blood Urea Nitrogen 16 mg/dL (9-23) Creatinine 0.91 mg/dL (0.550-1.02) Glomerular Filtration Rate Calc 67 mL/min (>90) BUN/Creatinine Ratio 17.6 (10.0-20.0) Serum Glucose 101 mg/dL (74-106) Calcium Level 9.2 mg/dL (8.7-10.4) White Blood Count 10.3 10^3/uL (4.4-10.8) Red Blood Count 4.77 10^6/uL (4.0-5.20) Hemoglobin 15.0 g/dL (12.2-16.2) Hematocrit 44.9 % (36.0-46.0) Mean Corpuscular Volume 94.2 fL (80.0-100.0) Mean Corpuscular Hemoglobin 31.4 pg (28.0-32.0) Mean Corpuscular Hemoglobin Concent 33.4 g/dL (32.0-36.0) Red Cell Distribution Width 15.0 % (11.8-14.3) Platelet Count 310 10^3/uL (140-450) Mean Platelet Volume 7.8 fL (6.9-10.8) Neutrophils (%) (Auto) 69.9 % (37.0-80.0) Lymphocytes (%) (Auto) 18.7 % (10.0-50.0) Monocytes (%) (Auto) 8.0 % (0.0-12.0) Eosinophils (%) (Auto) 2.8 % (0.0-7.0) Basophils (%) (Auto) 0.6 % (0.0-2.0) Neutrophils # (Auto) 7.2 10 ^3/uL (1.6-8.6) Lymphocytes # (Auto) 1.9 10 ^3/uL (0.4-5.4) Monocytes # (Auto) 0.8 10 ^3/uL (0-1.3) Eosinophils # (Auto) 0.3 10 ^3/uL (0-0.8) Basophils # (Auto) 0.1 10 ^3/uL (0-0.2) Nucleated Red Blood Cells 0.0 % Influenza Type A Antigen Negative (Negative) Influenza Type B Antigen Negative (Negative) SARS-CoV-2 Antigen (Rapid) Negative (NEGATIVE) Lactic Acid Level 1.9 mmol/L (0.4-2.0) Test 03/16/25 05:42 03/15/25 17:57 03/15/25 17:50 Prothrombin Time 11.2 sec (9.3-11.8) Prothrombin Time INR 1.06 (0.9-1.15) Activated Partial Thromboplast Time 28.2 SEC (24.5-34.5) Total Bilirubin 0.3 mg/dL (0.2-1.0) Direct Bilirubin 0.1 mg/dL (<0.3) Aspartate Amino Transferase (AST) 14 U/L (13-40) Alanine Aminotransferase (ALT) 11 U/L (7-40) Alkaline Phosphatase 84 U/L (46-116) Total Protein 6.4 g/dL (5.7-8.2) Albumin 3.7 g/dL (3.2-4.8) Vitamin B12 Level 402 pg/mL (211-911) Vitamin D 25-Hydroxy 38.2 ng/mL (30.0-100) Thyroid Stimulating Hormone (TSH) 3.79 uIU/mL (0.55-4.78) B-Type Natriuretic Peptide 116.77 pg/mL (0-100) Urine Color Dark-brown (Yellow) Urine Clarity Ex.turbid (Clear) Urine pH 6.0 (5.0-9.0) Urine Specific [place] 1.022 (1.001-1.035) Urine Protein 3+ (Negative) Urine Ketones Negative (Negative) Urine Blood 3+ /uL (Negative) Urine Nitrite Negative (Negative) Urine Bilirubin Negative (Negative) Urine Urobilinogen Normal mg/dL (Negative) Urine Leukocyte Esterase 2+ /uL (Negative) Urine RBC 3568 /hpf (0 - 4) Urine Microscopic WBC 285 /HPF (0-5) Urine Squamous Epithelial Cells Few /hpf (<5) Urine Bacteria None seen /hpf (None Seen) Urine Hyaline Casts Few /lpf (0 - 2) Urine Glucose Trace mg/dL (Normal) Other Laboratory Tests 03/20/25 06:24 03/18/25 08:44 Brief Hx & Hospital Course: Zandra Raygoza is a 69-year-old female, Bed bound with a past medical history presented for evaluation of bloody urine. patient reports 1 week history of noticing blood in her urine and states that over the past 3 years it has become worse. It is associated with dysuria, lower abdominal, nausea, chills, but no vomiting, no burning micturition and is nonradiating nature. she has a history of COPD and is currently on nasal cannula oxygen at 4 L. she also reports some shortness of breath with nonproductive cough. PMH COPD, CHF, arthritis, AFib, dyslipidemia, hypertension, hypothyroidism PSH: Pacemaker, cholecystectomy, bladder lift Family history: Noncontributory to this case Social history: Patient lives in a boarding care facility in [place]. She denies ever smoking, drinking alcohol, or any other drugs. Allergy: penicillin ( throat closes up), sulfa antibiotics ( itching and swelling of the body) home medicine: patient reports she can not remember all the names of the medications but takes for all of her conditions Brief history of hospitalization: Patient has Sepsis possible due to acute complicated cystitis, and possible pyelonephritis seen in urinalysis. IVF administered and patient begun on Ceftriaxone. Urine culture prelim showed Escherichia coli. For Right kidney nephrolithiasis without hydronephrosis which was seen in CT abdomen and pelvis- Multiple small sub centimeter calculi are seen in the right kidney and Right renal nephrolithiasis without hydronephrosis was seen. Patient given IVF and tamsulosin. Urine was strained. Urologic consultation suggested renal US, repeat unless on showed no findings of stones. Initially Patient was unable to tolerate foods (caused pain). For Possible Acute Gram positive or negative pneumonia ,X-ray showed pulmonary vascular congestion and bilateral patchy airspace opacities. patient will given Azithromycin and rocephin and continued on home oxygen. respiratory cultures were done. MRSA nares positive for which mupirocin was given. Left renal angiomyolipoma & B/l renal cyst was also Seen in CT abdomen and pelvis revealing Bilateral renal cysts. Left renal angiomyolipoma measures up to 2.8 cm. patient has been advised to follow-up outpatient. For AFib with RVR and secondary hypercoagulable state, pacemaker status Dr. Carranza who was her primary care doctor was consulted. for patient's hypothyroidism levothyroxine home medication is to be continued. For lumbar radiculopathy, advised outpatient follow-up. for morbid obesity( BMI 48.3) dietary counseling has been given and the need for exercise explained. for patient's skin rash, unknown etiology wound care consultation was done cleansed with soap and water, patted dry, Z guard cream applied and outpatient follow-up advised. Patient condition was improved, she is stable for discharge back to [facility] facility with Keflex and doxycycline. He is advised to follow up with PCP and Cardiology. Pt is lying on bed General Appearance: Alert, Oriented X3, Cooperative, mild distress, obese HEENT: Atraumatic, Mucous membranes moist/pink, on 4 L of oxygen via nasal cannula Respiratory: crackles in the left lung, wheezing present Cardiovascular: Regular rate, Normal S1, Normal S2, No murmurs Abdominal: Active bowel sounds, Soft, no distention, tenderness right flank Extremities: No edema, Normal pulses, mild non pitting edema, unable to move hip and knee Skin: statis dermatitis in B/L legs, patient has rash on the mid back Neuro: Normal speech, decreased sensation in B/l feet Psych/Mental Status: Mental status NL, Mood NL Nurse was there as security systems manager during examination Consults/Reason for consult Urology for renal calculi Operations or Procedures Exam: CT CT AB PEL WO CON-NO ORAL OR IV IMPRESSION: 1. Right renal nephrolithiasis without hydronephrosis. Radiation optimization: All CT scans at this facility use at least one of these dose optimization techniques: automated exposure control mA and/or kV adjustment per patient size (includes targeted exams where dose is matched to clinical indication) or iterative reconstruction. CHEST RADIOGRAPH IMPRESSION: Cardiomegaly with pulmonary vascular congestion and bilateral patchy airspace opacities. RENAL ULTRASOUND FINDINGS: Nondiagnostic exam as the patient unable to continue the examination and the kidneys were not visualized. EXAM DESCRIPTION: RENAL ULTRASOUND IMPRESSION: Limited study with poor visualization. No hydronephrosis or renal calculi. Condition at Discharge: Stable Final Diagnosis/Problems List #Sepsis possible due to acute complicated cystitis # ? 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 for 7 days Resume home medications Doxycycline 500 mg b.i.d. for 5 days Scheduled Buspirone HCl (Buspirone Hydrochloride), 10 MG PO TID, (Reported) Carbamazepine (Carbamazepine), 600 MG PO HS, (Reported) Carbamazepine (Tegretol), 200 MG PO DAILY, (Reported) Cephalexin ( Keflex 500), 1 CAP PO QID, (Reported) Cephalexin (Keflex Capsule), 500 MG PO BID Cholecalciferol (Vitamin D3), 2,000 UNIT OR DAILY, (Reported) Diphenhydramine Hcl (Diphenhydramine Hcl), 25 MG PO DAILYP, (Reported) Doxycycline (Monohydrate) (Doxycycline), 100 MG PO BID Famotidine (Famotidine), 20 MG PO BID, (Reported) Metolazone (Metolazone), 5 MG PO DAILY, (Reported) Metoprolol Tartrate (Metoprolol Tartrate), 25 MG PO BID, (Reported) Olmesartan Medoxomil-Hydrochlo (Benicar Hct), 1 TAB PO DAILY, (Reported) Ondansetron HCl (Ondansetron), 4 MG PO TID, (Reported) Rivaroxaban (Xarelto), 10 MG PO DAILY, (Reported) Sacubitril-Valsartan (Entresto 24-26 mg), 1 TAB PO BID, (Reported) Sertraline Hcl (Sertraline Hcl), 100 MG PO DAILY, (Reported) Simvastatin (Zocor), 20 MG PO HS, (Reported) Scheduled PRN Gabapentin (Gabapentin), 300 MG PO TID PRN for PAIN SCALE 1 THRU 6, (Reported) Miscellaneous Medications Omeprazole (Gnp Omeprazole), 20 MG PO, (Reported) Discontinued Medications Atenolol (Atenolol), 50 MG PO BID, (Reported) Bumetanide (Bumetanide), 2 MG PO DAILY, (Reported) Discharge Statement: "Patient was advised to return to the ER or call 911 if any headaches, dizziness, shortness of breath, chest pain, abdominal pain, bleeding, fevers, or worsening of medical condition. Patient was counseled about treatment plan, medications, possible side effects, patientverbalized understanding. All questions were answered to the best of my ability. This discharge took greater then 30 minutes in planning, reviewing documentation, counseling the patient, and discussing with other team members." ASSESSMENT ASSESSMENT Assessment -Sepsis possible due to acute complicated cystitis -?Pyelonephritis -right kidney nephrolithiasis without hydronephrosis -Possible acute Gram-positive or negative pneumonia -AFib with RVR and secondary hypercoagulable state -Hypothyroidism -Lumbar radiculopathy -Morbid obesity -Skin rash, unknown etiology -Multiple joint arthritis Date of Service: Mar 20, 2025 Billing Provider: TAMMI MARCELO MD Common Visit Codes: 84858-RAX/[id number] DISCH DAY >30min ELKIN ACE RESIDENT Mar 20, 2025 13:39 ANH MALONE RESIDENT Mar 20, 2025 15:07 TAMMI MARCELO MD Mar 20, 2025 21:51
--- NOTE | 2025-03-20 15:06 | DVHPN2 ---
Progress Note - Dictate Date Seen: Mar 18, 2025 Medical Necessity Reason Pt with a Central, PICC or Fol: Yes The following are medically ne: Interiano Catheter Subjective HEMATURIA NEPHROLITHIASIS DYSURIA UTI PMH; REACTIVE AIRWAY METABOLIC SYNDROME HTN HFpEF HYPOTHROID SSS S/P PPI AFIB HYPERCOAGULABLE STATE RECENT BLADDER RECONSTRUCTIVE SURGERY FOR URINARY INCONTINENCE KIMBERLYN vital signs Vital Sign Date Time Temp Pulse Resp B/P (MAP) Pulse Ox O2 Delivery O2 Flow Rate FiO2 03/20/25 13:00 97.2 66 18 87/50 (62) 95 97.2 03/20/25 10:00 Nasal Cannula* 4 36 Total Intake and Output 03/19/25 03/19/25 03/20/25 15:00 23:00 07:00 Intake Total 1000 ml 1030 ml 525 ml Output Total 500 ml 350 ml Balance 1000 ml 530 ml 175 ml medications Current Medications Medications Dose Ordered Sig/Darshana Route Start Time Stop Time Status Last Admin Dose Admin Atenolol 50 mg BID PO 03/16/25 10:00 03/19/25 10:07 50 MG Carbamazepine 200 mg BID PO 03/16/25 10:00 03/20/25 08:49 200 MG Atorvastatin Calcium 20 mg HS PO 03/16/25 22:00 03/19/25 22:00 20 MG Levothyroxine Sodium 50 mcg QAM@0600 PO 03/16/25 06:00 03/20/25 05:25 50 MCG Ceftriaxone Sodium 50 ml @ 100 mls/hr DAILY@09 IV 03/16/25 09:00 03/20/25 08:48 100 MLS/HR Azithromycin 250 ml @ 125 mls/hr DAILY IV 03/16/25 10:00 03/20/25 10:38 125 MLS/HR Acetaminophen/ Hydrocodone Bitart 1 tab Q4HP PRN PO 03/15/25 23:30 03/19/25 10:10 1 TAB Ondansetron HCl 4 mg Q4HP PRN IV 03/15/25 23:30 Nitroglycerin 0.4 mg Q5MINP PRN SL 03/15/25 23:30 Morphine Sulfate 2 mg Q30M PRN IV 03/15/25 23:30 Albuterol 2.5 mg Q6HWA [facility] 03/16/25 10:45 03/20/25 11:33 2.5 MG Ipratropium [place] 0.5 mg Q4HWA [facility] 03/16/25 14:00 Cancel Tamsulosin HCl 0.4 mg QPM PO 03/16/25 18:00 03/19/25 18:22 0.4 MG Ipratropium [place] 0.5 mg Q6HWA [facility] 03/16/25 12:00 03/20/25 11:33 0.5 MG Mupirocin 1 applic BID EACHNOSTRI 03/16/25 22:00 03/21/25 21:59 03/20/25 08:49 1 APPLIC Cyanocobalamin 500 mcg DAILY PO 03/18/25 10:00 03/20/25 08:49 500 MCG Acetaminophen 650 mg Q8HP PRN PO 03/18/25 16:00 03/18/25 21:11 650 MG laboratory and microbiology Laboratory Tests 03/20/25 06:24 03/18/25 08:44 Test 03/20/25 06:24 Range/Units Serum Glucose 101 74-106 mg/dL Problem List HEMATURIA NEPHROLITHIASIS DYSURIA UTI PMH; REACTIVE AIRWAY METABOLIC SYNDROME HTN HFpEF HYPOTHROID SSS S/P PPI AFIB HYPERCOAGULABLE STATE RECENT BLADDER RECONSTRUCTIVE SURGERY FOR URINARY INCONTINENCE KIMBERLYN Assessment/Plan IVF ABX CT OF KIDNEY POSITIVE FOR RENAL STONES HEMATURIA Dietary Evaluation Review Recommendations by RD: Dietary education by RD Comments: 1) Initiate MVI @ 1 tb qd 2) Encourage optimal PO intake 3) Refer to outpatient RD for weight management 4) Follow-up with urologist, jig boring machine set up operator and inbound telemarketer 5) Continue to monitor I&O, labs, and skin integrity Expected Outcomes/Goals: 1) appetite and labs to improve 2) wound to improve 3) f/u in 3-5 days Plan discussed with: Patient GUILLERMO ALDANA MD Mar 20, 2025 15:06
--- NOTE | 2025-03-20 15:07 | DVHPN2 ---
Progress Note - Dictate Date Seen: Mar 20, 2025 Medical Necessity Reason Pt with a Central, PICC or Fol: Yes The following are medically ne: Interiano Catheter Subjective HEMATURIA NEPHROLITHIASIS DYSURIA UTI PMH; REACTIVE AIRWAY METABOLIC SYNDROME HTN HFpEF HYPOTHROID SSS S/P PPI AFIB HYPERCOAGULABLE STATE RECENT BLADDER RECONSTRUCTIVE SURGERY FOR URINARY INCONTINENCE KIMBERLYN vital signs Vital Sign Date Time Temp Pulse Resp B/P (MAP) Pulse Ox O2 Delivery O2 Flow Rate FiO2 03/20/25 13:00 97.2 66 18 87/50 (62) 95 97.2 03/20/25 10:00 Nasal Cannula* 4 36 Total Intake and Output 03/19/25 03/19/25 03/20/25 15:00 23:00 07:00 Intake Total 1000 ml 1030 ml 525 ml Output Total 500 ml 350 ml Balance 1000 ml 530 ml 175 ml medications Current Medications Medications Dose Ordered Sig/Darshana Route Start Time Stop Time Status Last Admin Dose Admin Atenolol 50 mg BID PO 03/16/25 10:00 03/19/25 10:07 50 MG Carbamazepine 200 mg BID PO 03/16/25 10:00 03/20/25 08:49 200 MG Atorvastatin Calcium 20 mg HS PO 03/16/25 22:00 03/19/25 22:00 20 MG Levothyroxine Sodium 50 mcg QAM@0600 PO 03/16/25 06:00 03/20/25 05:25 50 MCG Ceftriaxone Sodium 50 ml @ 100 mls/hr DAILY@09 IV 03/16/25 09:00 03/20/25 08:48 100 MLS/HR Azithromycin 250 ml @ 125 mls/hr DAILY IV 03/16/25 10:00 03/20/25 10:38 125 MLS/HR Acetaminophen/ Hydrocodone Bitart 1 tab Q4HP PRN PO 03/15/25 23:30 03/19/25 10:10 1 TAB Ondansetron HCl 4 mg Q4HP PRN IV 03/15/25 23:30 Nitroglycerin 0.4 mg Q5MINP PRN SL 03/15/25 23:30 Morphine Sulfate 2 mg Q30M PRN IV 03/15/25 23:30 Albuterol 2.5 mg Q6HWA NEB 03/16/25 10:45 03/20/25 11:33 2.5 MG Ipratropium [place] 0.5 mg Q4HWA [facility] 03/16/25 14:00 Cancel Tamsulosin HCl 0.4 mg QPM PO 03/16/25 18:00 03/19/25 18:22 0.4 MG Ipratropium [place] 0.5 mg Q6HWA [facility] 03/16/25 12:00 03/20/25 11:33 0.5 MG Mupirocin 1 applic BID EACHNOSTRI 03/16/25 22:00 03/21/25 21:59 03/20/25 08:49 1 APPLIC Cyanocobalamin 500 mcg DAILY PO 03/18/25 10:00 03/20/25 08:49 500 MCG Acetaminophen 650 mg Q8HP PRN PO 03/18/25 16:00 03/18/25 21:11 650 MG laboratory and microbiology Laboratory Tests 03/20/25 06:24 03/18/25 08:44 Test 03/20/25 06:24 Range/Units Serum Glucose 101 74-106 mg/dL Problem List HEMATURIA NEPHROLITHIASIS DYSURIA UTI PMH; REACTIVE AIRWAY METABOLIC SYNDROME HTN HFpEF HYPOTHROID SSS S/P PPI AFIB HYPERCOAGULABLE STATE RECENT BLADDER RECONSTRUCTIVE SURGERY FOR URINARY INCONTINENCE KIMBERLYN Assessment/Plan IVF ABX CT OF KIDNEY POSITIVE FOR RENAL STONES HEMATURIA REPEAT RENAL U/S NEGATIVE FOR STONE MAY DC HOME Dietary Evaluation Review Recommendations by RD: Dietary education by RD Comments: 1) Initiate MVI @ 1 tb qd 2) Encourage optimal PO intake 3) Refer to outpatient RD for weight management 4) Follow-up with urologist, engineering secretary and chemistry account manager 5) Continue to monitor I&O, labs, and skin integrity Expected Outcomes/Goals: 1) appetite and labs to improve 2) wound to improve 3) f/u in 3-5 days Plan discussed with: Patient GUILLERMO ALDANA MD Mar 20, 2025 15:07
== END 2025-03-20 21:22 | disposition home health service (06) | DRG 871 ==
LOC: ER 16:37 → EDBD 16:37 → OVERFLOW 23:21 → TELE-WESTW 03-16 02:47
PROVIDERS: ADMIT Internal Medicine; ATTEND Internal Medicine
DX: A41.51 Sepsis due to Escherichia coli [E. coli] (principal); J15.69 Pneumonia due to other Gram-negative bacteria; J15.9 Unspecified bacterial pneumonia; D68.59 Other primary thrombophilia; N30.01 Acute cystitis with hematuria; I50.32 Chronic diastolic (congestive) heart failure; Z68.42 Body mass index [BMI] 45.0-49.9, adult; N12 Tubulo-interstitial nephritis, not specified as acute or chronic; J44.0 Chronic obstructive pulmonary disease with (acute) lower respiratory infection; E66.01 Morbid (severe) obesity due to excess calories; Z20.822 Contact with and (suspected) exposure to COVID-19; N20.0 Calculus of kidney; I11.0 Hypertensive heart disease with heart failure; N28.1 Cyst of kidney, acquired; M79.7 Fibromyalgia; D17.71 Benign lipomatous neoplasm of kidney; I49.5 Sick sinus syndrome; M54.16 Radiculopathy, lumbar region; M19.09 Primary osteoarthritis, other specified site; I48.91 Unspecified atrial fibrillation; E03.9 Hypothyroidism, unspecified; E88.810 Metabolic syndrome; E78.5 Hyperlipidemia, unspecified; G47.33 Obstructive sleep apnea (adult) (pediatric); R32 Unspecified urinary incontinence; Z99.81 Dependence on supplemental oxygen; Z88.0 Allergy status to penicillin; Z82.49 Family history of ischemic heart disease and other diseases of the circulatory system; Z82.0 Family history of epilepsy and other diseases of the nervous system; Z74.01 Bed confinement status; Z88.2 Allergy status to sulfonamides; Z79.02 Long term (current) use of antithrombotics/antiplatelets; Z79.899 Other long term (current) drug therapy; Z95.0 Presence of cardiac pacemaker
CPT/HCPCS: 36415; 71045; 74176; 76775; 80048; 80076; 81001; 82306; 82607; 83605; 83880; 84443; 85025; 85610; 85730; 87040; 87081; 87086; 87088; 87186; 87426; 87804; 93005; 94640; 96361; 96365; 99291; G0378; J2543

== ENCOUNTER 2025-06-21 12:32 | Inpatient (IN) | payer MEDICARE, MEDICAID ==
[~2025-06-21] VITALS: Ht 157.5 cm; Wt 116.4 kg
[~2025-06-21 12:32] MED LIST changes: -ATEN50TA PO; +CARB200T PO; +CEPH250C PO; +CHOL20007 OR; +DIPH-753 PO; +DOXY1CAP58 PO; +FAMO-12 PO; +METO25TA5 PO; +OMEP20TA PO; +ONDA-155 PO; +RIVSET PO; +SACU1TAB PO; +SERT-206 PO
--- NOTE | 2025-06-21 13:02 | ED.PDOC ---
HPI Comments This is a 70 year old female LAMINE presenting to the ED with chief complaint of chest pain. Patient reports that she has been experiencing 8/10 left sided chest pain with associated SOB since this morning. EMS relays that the patient was given 324mg of ASA en route to the ED and is on 4L of O2, which is normal for her. Patient denies any N/V, headache, abdominal pain, dizziness, fever, or chills. Chief Complaint: Chest Pain Time Seen by MD: 12:59 Primary Care Provider: GUILLERMO Reviewed Notes: Nurses Notes, Yarn Mercerizer Operator Helper Notes, Medications, Allergies Allergies: Coded Allergies: Enoxaparin (Verified Allergy, Severe, BURNING ALL OVER BODY AND LOWER BACK PAIN-PATIENT REPORTS, 10/02/18) Penicillins (Verified Allergy, Unknown, 08/18/22) some penicillins, pt doesn't know names, states Guillermo Ac knows. Sulfa Antibiotics (Verified Allergy, Unknown, 12/15/16) Home Meds Active Scripts Doxycycline (Monohydrate) (Doxycycline) 100 Mg Cap, 100 MG PO BID for 5 Days, #10 CAP Prov:ANH MALONE RESIDENT 03/20/25 Cephalexin (KEFLEX CAPSULE) 250 Mg Cp, 500 MG PO BID for 5 Days, #20 CAP Prov:ANH MALONE RESIDENT 03/20/25 Reported Medications Sacubitril-Valsartan (Entresto 24-26 mg) 1 Tab Tab, 1 TAB PO BID, TAB 03/17/25 Cholecalciferol (VITAMIN D3) 2,000 Unit Tab, 2000 UNIT OR DAILY, TAB 03/17/25 Carbamazepine (Tegretol) 200 Mg Tab, 200 MG PO DAILY, TAB 3 TABS PO AT BEDTIME FOR BIPOLAR 03/17/25 Ondansetron HCl (Ondansetron) 4 Mg Tab, 4 MG PO TID, TAB 03/17/25 Diphenhydramine Hcl (Diphenhydramine Hcl) 25 Mg Cap, 25 MG PO DAILYP, MG 03/17/25 Rivaroxaban (Xarelto) 10 Mg Tab, 10 MG PO DAILY, TAB 03/17/25 Sertraline Hcl (Sertraline Hcl) 50 Mg Tab, 100 MG PO DAILY for 30 Days, MG 03/17/25 Metoprolol Tartrate (Metoprolol Tartrate) 25 Mg Tab, 25 MG PO BID for 30 Days, MG 03/17/25 Famotidine (Famotidine) 20 Mg Tab, 20 MG PO BID for 30 Days, MG 03/17/25 Omeprazole (Gnp Omeprazole) 20 Mg Tab, 20 MG PO, TAB 03/17/25 Cephalexin ( Keflex 500) 500 Mg Cap, 1 CAP PO QID for prophylaxis for 7 Days, CAP 08/21/22 Olmesartan Medoxomil-Hydrochlo (Benicar Hct) 1 Tab Tab, 1 TAB PO DAILY for HTN/CHF 08/18/22 Metolazone (Metolazone) 5 Mg Tab, 5 MG PO DAILY for HTN,FLUID RETENTION, TAB 08/18/22 Simvastatin (Zocor) 10 Mg Tab, 20 MG PO HS for CHOLESTEROL, TAB 08/18/22 Gabapentin (Gabapentin) 300 Mg Cap, 300 MG PO TID PRN for PAIN SCALE 1 THRU 6 08/18/22 Carbamazepine (Carbamazepine) 200 Mg Tab, 600 MG PO HS, TAB 08/18/22 Buspirone HCl (Buspirone Hydrochloride) 15 Mg Tab, 10 MG PO TID for ANXIETY/DEPRESSION, TAB 08/18/22 Information Source: Patient, Emergency Med Personnel Mode of Arrival: EMS Severity: Moderate Timing: Hours Duration: Since onset Prehospital treatment: None Location: Chest (L) Radiation: No Radiation Quality: Sharp Onset: At Rest Cardiac Risk Factors: Hyperlipidemia, HTN PE Risk Factors: None Associated Signs and Symptoms: SOB Past Medical History PAST MEDICAL HISTORY: AFIB, Arthritis, CHF, COPD, High Lipids, HTN, Thyroid Surgical History: Cholecystectomy, Pacemaker CLOTH PRESSER History: Denies all CLOTH PRESSER Hx Family History Family History: Unknown Social History Smoker: Non-Smoker Alcohol: Denies ETOH Use Drugs: Denies Drug Use Lives In: Home Constitutional: denies: chills, diaphoresis, fatigue, fever, malaise, sweats, weakness, others EENTM: denies: blurred vision, double vision, ear bleeding, ear discharge, ear drainage, ear pain, ear ringing, eye pain, eye redness, hearing loss, mouth pain, mouth swelling, nasal discharge, nose bleeding, nose congestion, nose pain, photophobia, tearing, throat pain, throat swelling, voice changes, others Respiratory: reports: shortness of breath; denies: cough, hemoptysis, orthopnea, SOB at rest, SOB with excertion, stridor, wheezing, others Cardiovascular: reports: chest pain; denies: dizzy spells, diaphoresis, Dyspnea on exertion, edema, irregular heart beat, left arm pain, lightheadedness, palpitations, PND, syncope, others Gastrointestinal: denies: abdomen distended, abdominal pain, blood streaked bowels, constipated, diarrhea, dysphagia, difficulty swallowing, hematemesis, melena, nausea, poor appetite, poor fluid intake, rectal bleeding, rectal pain, vomiting, others Genitourinary: denies: abnormal vagina bleeding, burning, dyspareunia, dysuria, flank pain, frequency, hematuria, incontinence, pain, , vagina discharge, urgency, others Neurological: denies: dizziness, fainting, headache, left sided numbness, left sided weakness, numbness, paresthesia, pre-existing deficit, right sided numbness, right sided weakness, seizure, speech problems, tingling, tremors, weakness, others Musculoskeletal: denies: back pain, gout, joint pain, joint swelling, muscle pain, muscle stiffness, neck pain, others Integumetry: denies: bruises, change in color, change in hair/nails, dryness, laceration, lesions, lumps, rash, wounds, others Allergic/Immunocompromised: denies: Difficulty Healing, Frequent Infections, Hives, Itching, others Hematologic/Lymphatic: denies: anemia, blood clots, easy bleeding, easy bruising, swollen glands, others Endocrine: denies: excessive hunger, excessive sweating, excessive thirst, excessive urination, flushing, intolerance to cold, intolerance to heat, unexplained weight gain, unexplained weight loss, others Psychiatric: denies: anxiety, bipolar disorder, depression, hopeless, panic disorder, schizophrenia, sleepless, suicidal, others All Other Systems: Reviewed and Negative Physical Exam General Appearance: No Apparent Distress, Obese HEENT: Normal ENT Inspection, Pharynx Normal, TMs Normal Neck: Full Range of Motion, Non-Tender, Normal, Normal Inspection Respiratory: Chest Non-Tender, Lungs Clear, No Accessory Muscle Use, No Respiratory Distress, Normal Breath Sounds Cardiovascular: No Edema, No JVD, No Murmur, No Gallop, Normal Peripheral Pulses, Regular Rate/Rhythm Breast Exam: Deferred Gastrointestinal: No Organomegaly, Non Tender, No Pulsatile Mass, Normal Bowel Sounds, Soft Genitalia: Deferred Pelvic: Deferred Rectal: Deferred Extremities: No calf tenderness, Normal capillary refill, Normal inspection, Normal range of motion, Non-tender, No pedal edema Musculoskeletal : Apperance: Normal Neurologic: Alert, dinkey engine mechanic II-XII nml as Tested, No Motor Deficits, Normal Affect, Normal Mood, No Sensory Deficits Cerebellar Function: Normal Reflexes: Normal Skin: Dry, Normal Color, Warm Lymphatic: No Adenopathy Was a procedure done? Was a procedure done?: No CP Differential Dx Differential Diagnosis: Anxiety / Panic Attack, [place], [place] Differential Diagnosis: HTN Essential, HTN Accelerated, Medical NonCompliance Differential Diagnosis: Myocardial Infarction, Pericarditis X-Ray, Labs, Meds, VS Vital Signs Date Time Temp Pulse Resp B/P (MAP) Pulse Ox O2 Delivery O2 Flow Rate FiO2 06/21/25 16:00 95 06/21/25 15:38 108 06/21/25 15:00 80 16 110/62 (78) 15 06/21/25 13:45 86 06/21/25 13:40 97.8 85 20 101/55 (70) 97 97.8 06/21/25 13:40 85 20 97 Nasal Cannula* 4 36 06/21/25 13:40 97 Nasal Cannula* 4 36 06/21/25 12:37 103 06/21/25 12:37 97.7 90 15 107/69 95 97.7 Lab Test 06/21/25 16:24 06/21/25 13:57 06/21/25 13:04 Range/Units Troponin I High Sensitivity 4 4 4 </=34 ng/L White Blood Count 11.1 H 4.4-10.8 10^3/uL Red Blood Count 5.01 4.0-5.20 10^6/uL Hemoglobin 15.0 12.2-16.2 g/dL Hematocrit 44.8 36.0-46.0 % Mean Corpuscular Volume 89.6 80.0-100.0 fL Mean Corpuscular Hemoglobin 30.0 28.0-32.0 pg Mean Corpuscular Hemoglobin Concent 33.5 32.0-36.0 g/dL Red Cell Distribution Width 13.9 11.8-14.3 % Platelet Count 309 140-450 10^3/uL Mean Platelet Volume 8.2 6.9-10.8 fL Neutrophils (%) (Auto) 64.3 37.0-80.0 % Lymphocytes (%) (Auto) 22.5 10.0-50.0 % Monocytes (%) (Auto) 9.1 0.0-12.0 % Eosinophils (%) (Auto) 3.3 0.0-7.0 % Basophils (%) (Auto) 0.8 0.0-2.0 % Neutrophils # (Auto) 7.1 1.6-8.6 10 ^3/uL Lymphocytes # (Auto) 2.5 0.4-5.4 10 ^3/uL Monocytes # (Auto) 1.0 0-1.3 10 ^3/uL Eosinophils # (Auto) 0.4 0-0.8 10 ^3/uL Basophils # (Auto) 0.1 0-0.2 10 ^3/uL Nucleated Red Blood Cells 0.1 % Sodium Level 143 136-145 mmol/L Potassium Level 4.0 3.5-5.1 mmol/L Chloride Level 98 98-107 mmol/L Carbon Dioxide Level 36 H 20-31 mmol/L Anion Gap 9 5-15 Blood Urea Nitrogen 28 H 9-23 mg/dL Creatinine 1.03 H 0.550-1.02 mg/dL Glomerular Filtration Rate Calc 58 >90 mL/min BUN/Creatinine Ratio 27.2 H 10.0-20.0 Serum Glucose 106 74-106 mg/dL Calcium Level 9.0 8.7-10.4 mg/dL B-Type Natriuretic Peptide 200.77 0-100 pg/mL [place] [address] Ph: [phone] DIAGNOSTIC IMAGING Diagnostic Imaging Report : [id number] Signed PATIENT: KATELYN CORCORAN SACCT: [id number] UNIT: [id number] : 11/13/1932 LOC: ER ROOM / BED: / AGE / SEX: 89 / M ADM STATUS: REG ER SERVICE [id number] ORDERING PHYSICIAN: JERRY NELSON MD PROCEDURE(s): CXRP - CHEST PORTABLE REASON: sob ORDER NUMBER(s): [id number], ACCESSION NUMBER(s): [id number] INDICATION: sob TECHNIQUE: Frontal view of the chest. COMPARISON: XY CHEST XRAY 1 VIEW on DOS: 01/26/25, XY CHEST PORTABLE on DOS: 01/17/25, XY CHEST PORTABLE on DOS: 01/11/25, XY CHEST PORTABLE on DOS: 01/09/25, CT CHEST WITHOUT CONTRAST on DOS: 01/04/25 FINDINGS: Cardiomegaly. The heart and mediastinal contours are grossly unremarkable. There is no evidence of pleural disease. The lungs are clear. The bony structures of the chest are intact without fracture. IMPRESSION: 1. Cardiomegaly with CHF ATED BY: VERONIKA SANTANA MD DICTATED DATE/TIME: 06/21/251404 SIGNED BY: VERONIKA SANTANA MD SIGNED DATE/TIME: 06/21/251404 CC: Time of 1ST Reevaluation: 13:59 Reevaluation 1ST: Unchanged Patient Education/Counseling: Diagnosis, Treatment Family Education/Counseling: No Family Present SEPSIS Sepsis Screen Date sepsis recognized/suspect: Jun 21, 2025 Time Sepsis recognized/suspect: 1237 Recent Procedure: No On Antibiotic Therapy: No Respiratory Rate >20: No Heart Rate >90: No Temp<36 C (96.8 F) or >38.3 C: No SBP <90 or MAP <65 mmHG: No New Acute Mental Status Change: No Is the patient on CPAP, BIPAP,: No Physician Orders Electrocardigram (06/21/25 15:43) Chest Portable (06/21/25 12:56) Urine Bacterial Culture (06/21/25 15:02) Insert/Manage Urinary Catheter QSHIFT (06/21/25 15:02) Lactic Acid W/ Reflex Order (06/21/25 17:14) Blood Culture (06/21/25 17:14) Cefepime 2gm Extended Infusion (06/21/25 17:30) Azithromycin Tablet (Zithromax Tablet) (06/21/25 17:30) Vancomycin (06/21/25 17:30) Vital Signs Date Time Temp Pulse Resp B/P (MAP) Pulse Ox O2 Delivery O2 Flow Rate FiO2 06/21/25 16:00 95 06/21/25 15:38 108 06/21/25 15:00 80 16 110/62 (78) 15 06/21/25 13:45 86 06/21/25 13:40 97.8 85 20 101/55 (70) 97 97.8 06/21/25 13:40 85 20 97 Nasal Cannula* 4 36 06/21/25 13:40 97 Nasal Cannula* 4 36 06/21/25 12:37 103 06/21/25 12:37 97.7 90 15 107/69 95 97.7 Laboratory Tests Test 06/21/25 13:04 White Blood Count 11.1 10^3/uL (4.4-10.8) H Departure 1 Departure Time of Disposition: 17:17 (Patient likely with pneumonia. Patient also with a acute chest pain and shortness of breath. We will admit patient for further workup and expert consultation.Patient is not septic) Impression: Primary Impression: Acute chest pain Additional Impressions: Pneumonia Generalized weakness Disposition: ADMITTED INPATIENT Admit to: Tele Condition: Guarded Critical Care Note Critical Care Time?: Yes Critical care comment: Acute shortness of breath Authorized and Performed by: Jerry Nelson MD Total critical care time: Approximately 38 minutes Due to a high probability of clinically significant, life threatening deterioration, the patient required my highest level of preparedness to intervene emergently and I personally spent this critical care time directly and personally managing the patient. This critical care time included obtaining a history; examining the patient; pulse oximetry; ordering and review of studies; arranging urgent treatment with development of a management plan; evaluation of patient's response to treatment; frequent reassessment; and, discussions with other providers. This critical care time was performed to assess and manage the high probability of imminent, life-threatening deterioration that could result in multi-organ failure. It was exclusive of separately billable procedures and treating other patients and teaching time. Please see my other sections and the rest of the note for further information on patient assessment and treatment. Stability Stability form required: No Heart Score Heart Score: Heart Score Response (Comments) Value History Highly Suspicious 2 EKG Normal 0 Age >65 2 Risk Factors >3 or Hx ASHD 2 Troponin 1-2 x's Normal limit 1 Total 7 I personally scribed for JERRY NELSON MD ([email or web address]) on 06/21/25 at 13:01. Electronically submitted by Kevin Mendoza ([email or web address]). I personally scribed for JERRY NELSON MD ([email or web address]) on 06/21/25 at 14:28. Electronically submitted by Kevin Mendoza ([email or web address]). JERRY NELSON MD Jun 21, 2025 13:01
--- NOTE | 2025-06-21 13:22 | ECG ---
[facility] Test Date: 2025-06-21 Test Time: 12:37:49 Pat Name: KORY CAPONE Department: [facility] ED Patient ID: [facility]-[id number] Room: 0285T Gender: F Postal Superintendent: SYLWIA : 1955 Requested By: JERRY NELSON Order Number: [id number] Reading MD: Lei Seo Measurements Intervals [place] Rate: 103 P: 0 CA: 0 QRS: 70 QRSD: 133 T: 0 QT: 223 QTc: 292 Interpretive Statements Afib/flut and V-paced complexes No further analysis attempted due to paced rhythm Electronically Signed On 06-24-2025 20:31:52 PDT by Lei Seo Please click the below link to view image of tracing.
[2025-06-21 13:38] LABS: Hematocrit 44.8 % (36.0-46.0); Hemoglobin 15.0 g/dL (12.2-16.2); Mean Corpuscular Hemoglobin 30.0 pg (28.0-32.0); Mean Corpuscular Volume 89.6 fL (80.0-100.0); Nucleated Red Blood Cells % 0.1 %
[2025-06-21 13:40] VITALS: PULSE 85; RESP 20; O2SAT 97
--- NOTE | 2025-06-21 13:40 | DVH ---
CHEST RADIOGRAPH Indication: sob Technique: XY CHEST PORTABLE COMPARISON: None FINDINGS: Left chest triple lead cardiac pacer device The cardiac silhouette is enlarged. The lungs demonstrate bilateral patchy airspace opacities most pr ominently in the perihilar and left lower lobe region. The pulmonary vasculature is prominent. Small left pleural. There is no pneumothorax. IMPRESSION: As above
--- NOTE | 2025-06-21 13:48 | ECG ---
[facility] Test Date: 2025-06-21 Test Time: 13:45:34 Pat Name: KORY CAPONE Department: [facility] ED Room: 0285T Gender: F Teaching Assistant: ALEJO : 1955 Requested By: JERRY NELSON Order Number: [id number] Reading MD: Lei Seo Measurements Intervals [place] Rate: 86 P: 0 ND: 0 QRS: 55 QRSD: 117 T: -8 QT: 414 QTc: 496 Interpretive Statements Atrial-sensed ventricular-paced complexes No further rhythm analysis attempted due to paced rhythm Incomplete right bundle branch block Low voltage, precordial leads Nonspecific T abnormalities, lateral leads Electronically Signed On 06-24-2025 20:31:58 PDT by Lei Seo Please click the below link to view image of tracing.
[2025-06-21 13:49] LABS: Anion Gap 9 (5-15); Potassium 4.0 mmol/L (3.5-5.1); Sodium 143 mmol/L (136-145)
[2025-06-21 13:50] LABS: Calcium 9.0 mg/dL (8.7-10.4)
[2025-06-21 13:54] LABS: Carbon Dioxide 36 mmol/L (20-31); Chloride 98 mmol/L (98-107)
[2025-06-21 13:55] LABS: BUN/Creatinine Ratio 27.2 (10.0-20.0); Glucose 106 mg/dL (74-106)
[2025-06-21 13:59] LABS: Blood Urea Nitrogen 28 mg/dL (9-23)
[2025-06-21] MEDS: CEFEPIME 2GM/50ML NS 50 ML IV ONE (17:43)
[2025-06-21] MEDS: AZITHROMYCIN 250 MG TAB PO ONE (17:43)
[2025-06-21] MEDS: VANCOMYCIN 1GM/250ML KIT 250 ML IV ONE (19:20)
--- NOTE | 2025-06-21 19:25 | ECG ---
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
[2025-06-21] MEDS ORDERED: NITROGLYCERIN 0.4 MG SL TAB SL PRN (19:45)
[2025-06-21 20:02] LABS: Urine Protein, UAD Negative (Negative)
[2025-06-21 20:03] VITALS: O2SAT 99
[2025-06-21 20:04] VITALS: O2SAT 99
[2025-06-21 20:06] VITALS: PULSE 91; RESP 18; O2SAT 99
[2025-06-21] MEDS ORDERED: MORPHINE SULFATE 4 MG/ML SYR/VIAL IV PRN (20:45)
[2025-06-21] MEDS: ACETAMINOPHEN 325 MG TAB PO PRN (21:15)
[2025-06-21] MEDS: SACUBITRIL-VALSARTAN 24mg/26mg TAB PO SCH (22:00)
--- NOTE | 2025-06-21 22:19 | DVHHP2 ---
History of Present Illness Reason for Visit: Chest pain History of Present Illness 70-year-old female presents for evaluation of chest pain. Patient presents with a one day history of left-sided sharp/pressure-like chest pain that radiates to her left neck. She also reports shortness for breath and a nonproductive cough. Denies fever or chills. No dizziness. No other acute complaints reported. Past Medical History CHF, COPD, atrial fibrillation, dyslipidemia, hypertension, thyroid Past Surgical History Pacemaker, cholecystectomy Family History Noncontributory Smoke: No ALCOHOL: none Drugs: None Lives: with Family Review of Systems Review of Systems Review of systems are currently negative otherwise addressed in HPI. Allergies: Coded Allergies: Enoxaparin (Verified Allergy, Severe, BURNING ALL OVER BODY AND LOWER BACK PAIN-PATIENT REPORTS, 10/02/18) Penicillins (Verified Allergy, Unknown, 08/18/22) some penicillins, pt doesn't know names, states Prasanth Ac knows. Sulfa Antibiotics (Verified Allergy, Unknown, 12/15/16) Medications Current Medications Medications Dose Ordered Sig/Darshana Route Start Time Stop Time Status Last Admin Dose Admin Ceftriaxone Sodium 50 ml @ 100 mls/hr DAILY@09 IV 06/22/25 09:00 Azithromycin 250 ml @ 125 mls/hr DAILY IV 06/22/25 10:00 Albuterol 2.5 mg Q6HPRN PRN NEB 06/21/25 19:45 Rivaroxaban 10 mg DAILY PO 06/22/25 10:00 Levothyroxine Sodium 50 mcg QAM@0600 PO 06/22/25 06:00 Sacubitril/ Valsartan 1 tab BID PO 06/21/25 22:00 Furosemide 40 mg DAILY PO 06/22/25 10:00 Atorvastatin Calcium 20 mg HS PO 06/21/25 22:00 Metoprolol Tartrate 25 mg BID PO 06/21/25 22:00 Carbamazepine 200 mg HS PO 06/21/25 22:00 Ondansetron HCl 4 mg Q4HP PRN IV 06/21/25 19:45 Acetaminophen 650 mg Q6HP PRN PO 06/21/25 19:45 06/21/25 21:15 650 MG Nitroglycerin 0.4 mg Q5MINP PRN SL 06/21/25 19:45 Morphine Sulfate 2 mg Q30M PRN IV 06/21/25 20:45 Exam Vital Signs Vital Signs Date Time Temp Pulse Resp B/P (MAP) Pulse Ox O2 Delivery O2 Flow Rate FiO2 06/21/25 21:15 99.0 06/21/25 20:06 91 18 99 3.0 06/21/25 20:04 Nasal Cannula* 32 06/21/25 20:00 113/80 (91) Exam Gen: 70-year-old female in mild distress Skin: Warm, dry, normal color and texture, no rash. HEENT: Normocephalic atraumatic, mucous membranes moist and pink. Neck: Cervical and supraclavicular nodes normal without enlargement, trachea is midline, thyroid gland is normal without masses. Pulmonary: Clear to auscultation and percussion bilaterally. Cardiac: Regular rate and rhythm. No murmur Abdomen: Soft, nontender, nondistended, bowel sounds present all 4 quadrants, no guarding, no rigidity, no organomegaly. Extremities: No cyanosis, clubbing, no edema Neuro: Cranial nerves II through XII grossly intact, normal affect and speech, no focal motor deficits. Labs/Xrays ORDERING PHYSICIAN: JERRY NELSON MD PROCEDURE(s): CXRP - CHEST PORTABLE REASON: sob ORDER NUMBER(s): [id number], ACCESSION NUMBER(s): [id number] CHEST RADIOGRAPH Indication: sob Technique: XY CHEST PORTABLE COMPARISON: None FINDINGS: Left chest triple lead cardiac pacer device The cardiac silhouette is enlarged. The lungs demonstrate bilateral patchy ai rspace opacities most prominently in the perihilar and left lower lobe region. The pulmonary vasculature is prominent. Small left pleural. There is no pneumothorax. IMPRESSION: As above Labs Test 06/21/25 22:03 06/21/25 17:31 06/21/25 16:24 06/21/25 15:20 Range/Units Lactic Acid Level 1.3 0.4-2.0 mmol/L Troponin I High Sensitivity 4 </=34 ng/L Urine Hyaline Casts Few 0 - 2 /lpf Test 06/21/25 13:04 Range/Units White Blood Count 11.1 H 4.4-10.8 10^3/uL Red Blood Count 5.01 4.0-5.20 10^6/uL Hemoglobin 15.0 12.2-16.2 g/dL Hematocrit 44.8 36.0-46.0 % Mean Corpuscular Volume 89.6 80.0-100.0 fL Mean Corpuscular Hemoglobin 30.0 28.0-32.0 pg Mean Corpuscular Hemoglobin Concent 33.5 32.0-36.0 g/dL Red Cell Distribution Width 13.9 11.8-14.3 % Platelet Count 309 140-450 10^3/uL Mean Platelet Volume 8.2 6.9-10.8 fL Neutrophils (%) (Auto) 64.3 37.0-80.0 % Lymphocytes (%) (Auto) 22.5 10.0-50.0 % Monocytes (%) (Auto) 9.1 0.0-12.0 % Eosinophils (%) (Auto) 3.3 0.0-7.0 % Basophils (%) (Auto) 0.8 0.0-2.0 % Neutrophils # (Auto) 7.1 1.6-8.6 10 ^3/uL Lymphocytes # (Auto) 2.5 0.4-5.4 10 ^3/uL Monocytes # (Auto) 1.0 0-1.3 10 ^3/uL Eosinophils # (Auto) 0.4 0-0.8 10 ^3/uL Basophils # (Auto) 0.1 0-0.2 10 ^3/uL Nucleated Red Blood Cells 0.1 % Sodium Level 143 136-145 mmol/L Potassium Level 4.0 3.5-5.1 mmol/L Chloride Level 98 98-107 mmol/L Carbon Dioxide Level 36 H 20-31 mmol/L Anion Gap 9 5-15 Blood Urea Nitrogen 28 H 9-23 mg/dL Creatinine 1.03 H 0.550-1.02 mg/dL Glomerular Filtration Rate Calc 58 >90 mL/min BUN/Creatinine Ratio 27.2 H 10.0-20.0 Serum Glucose 106 74-106 mg/dL Calcium Level 9.0 8.7-10.4 mg/dL B-Type Natriuretic Peptide 200.77 0-100 pg/mL SEPSIS Sepsis Screen Date sepsis recognized/suspect: Jun 21, 2025 Time Sepsis recognized/suspect: 1340 Recent Procedure: No On Antibiotic Therapy: No Respiratory Rate >20: No Heart Rate >90: No Temp<36 C (96.8 F) or >38.3 C: No SBP <90 or MAP <65 mmHG: No New Acute Mental Status Change: No Is the patient on CPAP, BIPAP,: No Physician Orders Urine Bacterial Culture (06/21/25 15:02) Insert/Manage Urinary Catheter QSHIFT (06/21/25 15:02) Blood Culture (06/21/25 17:14) Ceftriaxone 1gm/50ml (Rocephin) (06/22/25 09:00) Azithromycin 500mg/ 250ml (Zithromax 50 (06/22/25 10:00) Albuterol Medneb (Ventolin Medneb) (06/21/25 19:45) Rivaroxaban Tablet (Xarelto Tablet) (06/22/25 10:00) Levothyroxine Tablet (Synthroid Tablet) (06/22/25 06:00) Sacubitril-Valsartan (Entresto 24-26 Mg (06/21/25 22:00) Furosemide Tablet (Lasix Tablet) (06/22/25 10:00) Atorvastatin (Lipitor) (06/21/25 22:00) Metoprolol Tartrate Tablet (Lopressor Ta (06/21/25 22:00) Carbamazepine Tablet (Tegretol Tablet) (06/21/25 22:00) Basic Metabolic Panel (06/22/25 04:00) Admit (06/21/25 19:38) Ondansetron Hcl (Zofran) (06/21/25 19:45) Complete Blood Count (06/22/25 04:00) Cardiac Diet-2gna,Lofat,Lochol (06/22/25 Breakfast) Condition: Fair (06/21/25 19:38) Acetaminophen Tablet (Tylenol Tablet) (06/21/25 19:45) Bedrest With Bathroom Privileg (06/21/25 19:38) Nitroglycerin Sublingual (Ntrostat Subli (06/21/25 19:45) Stat Ekg For Chest Pain (06/21/25 19:38) Notify Md Of Changes From Base (06/21/25 19:38) 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 For 24 Hours (06/21/25 19:38) Emergency Dysrhythmia Protocol (06/21/25 19:38) Rhythm Strips Once Every Shift (06/21/25 19:38) Oxygen By Nasal Cannula (06/21/25 19:38) Morphine Sulfate Injection (06/21/25 20:45) Urinalysis (06/21/25 21:49) Vital Signs Date Time Temp Pulse Resp B/P (MAP) Pulse Ox O2 Delivery O2 Flow Rate FiO2 06/21/25 21:15 99.0 06/21/25 20:06 91 18 99 3.0 06/21/25 20:04 99 Nasal Cannula* 3 32 06/21/25 20:03 99 Nasal Cannula 3.0 06/21/25 20:00 89 06/21/25 20:00 85 15 113/80 (91) 99 06/21/25 18:35 99.0 83 14 113/77 (89) 95 99.0 06/21/25 16:00 95 06/21/25 15:38 108 06/21/25 15:00 80 16 110/62 (78) 15 Laboratory Tests Test 06/21/25 13:04 06/21/25 17:31 White Blood Count 11.1 10^3/uL (4.4-10.8) H Lactic Acid Level 1.3 mmol/L (0.4-2.0) Medications Medications Dose Ordered Sig/Darshana Route Start Time Stop Time Status Last Admin Dose Admin Acetaminophen 650 mg Q6HP PRN PO 06/21/25 19:45 06/21/25 21:15 650 MG Azithromycin 500 mg ONCE ONCE PO 06/21/25 17:30 06/21/25 17:31 DC 06/21/25 17:43 500 MG Cefepime HCl 50 ml @ 50 mls/hr ONCE ONCE IV 06/21/25 17:30 06/21/25 18:29 DC 06/21/25 17:43 50 MLS/HR Vancomycin HCl 250 ml @ 250 mls/hr ONCE ONCE IV 06/21/25 18:30 06/21/25 19:29 DC 06/21/25 19:20 250 MLS/HR Assessment/Plan Assessment/Plan Chest pain ? Pneumonia Hypotension COPD Plan Admit the patient to telemetry to the hospitalist Cardiology consultation Resume home medications Rocephin/azithromycin Med nebs Continue treatment per orders. Plan discussed with: Patient My Orders Orders - SARAHY ELIZONDO AGACNP Procedure Category Date Status Time Ceftriaxone 1gm/50ml PHA 06/22/25 In Process (Rocephin) 09:00 Azithromycin 500mg/ PHA 06/22/25 In Process 250ml (Zithromax 50 10:00 Albuterol Medneb PHA 06/21/25 In Process (Ventolin Medneb) 19:45 Rivaroxaban Tablet PHA 06/22/25 In Process (Xarelto Tablet) 10:00 Levothyroxine Tablet PHA 06/22/25 In Process (Synthroid Tablet) 06:00 Sacubitril-Valsartan PHA 06/21/25 In Process (Entresto 24-26 Mg 22:00 Furosemide Tablet PHA 06/22/25 In Process (Lasix Tablet) 10:00 Atorvastatin (Lipitor) PHA 06/21/25 In Process 22:00 Metoprolol Tartrate PHA 06/21/25 In Process Tablet (Lopressor Ta 22:00 Carbamazepine Tablet PHA 06/21/25 In Process (Tegretol Tablet) 22:00 Basic Metabolic Panel LAB 06/22/25 Verified 04:00 Admit ADMIT 06/21/25 Transmitted 19:38 Ondansetron Hcl PHA 06/21/25 In Process (Zofran) 19:45 Complete Blood Count LAB 06/22/25 Verified 04:00 Cardiac DIET 06/22/25 Transmitted Diet-2gna,Lofat,Lochol Breakfast Condition: Fair [facility] 06/21/25 In Process 19:38 Acetaminophen Tablet PHA 06/21/25 In Process (Tylenol Tablet) 19:45 Bedrest With Bathroom [facility] 06/21/25 In Process Privileg 19:38 Nitroglycerin PHA 06/21/25 In Process Sublingual (Ntrostat 19:45 Stat Ekg For Chest [facility] 06/21/25 In Process Pain 19:38 Notify Of Changes [facility] 06/21/25 In Process From Base 19:38 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 For [facility] 06/21/25 In Process 24 Hours 19:38 Emergency Dysrhythmia [facility] 06/21/25 In Process Protocol 19:38 Rhythm Strips Once [facility] 06/21/25 In Process Every Shift 19:38 Oxygen By Nasal RT 06/21/25 Transmitted Cannula 19:38 Morphine Sulfate PHA 06/21/25 In Process Injection 20:45 Urinalysis LAB 06/21/25 In Process 21:49 Date of Service: Jun 21, 2025 Billing Provider: SARAHY ELIZONDO Common Visit Codes: [id number] INP/OBS CARE (HIGH) SARAHY ELIZONDO Jun 21, 2025 22:19
[2025-06-21 22:21] LABS: Urine Protein, UAD 1+ (Negative)
[2025-06-21 23:03] VITALS: BP 108/56; PULSE 89; RESP 18; TEMP 98.2; O2SAT 97
[2025-06-22] VITALS (10 sets, daily range): BP systolic 95–126; BP diastolic 47–70; PULSE 17–88; RESP 16–20; TEMP 97.8–98.2; O2SAT 95–100
[2025-06-22] MEDS: carBAMazepine 200 MG TAB PO SCH (00:06)
[2025-06-22] MEDS: ATORVASTATIN 20 MG TAB PO SCH (00:06)
[2025-06-22] MEDS: METOPROLOL TARTRATE 25 MG TAB PO SCH (00:07)
[2025-06-22] MEDS: LEVOTHYROXINE SODIUM 50 MCG TAB PO SCH (06:01)
[2025-06-22 06:50] LABS: Hematocrit 42.4 % (36.0-46.0); Hemoglobin 14.2 g/dL (12.2-16.2); Mean Corpuscular Hemoglobin 30.2 pg (28.0-32.0); Mean Corpuscular Volume 90.0 fL (80.0-100.0); Nucleated Red Blood Cells % 0.0 %
[2025-06-22 07:08] LABS: Potassium 4.2 mmol/L (3.5-5.1); Sodium 138 mmol/L (136-145)
[2025-06-22 07:09] LABS: Anion Gap 9 (5-15); Carbon Dioxide 31 mmol/L (20-31)
[2025-06-22 07:14] LABS: BUN/Creatinine Ratio 18.3 (10.0-20.0); Blood Urea Nitrogen 20 mg/dL (9-23); Glucose 99 mg/dL (74-106)
[2025-06-22 07:17] LABS: Calcium 8.5 mg/dL (8.7-10.4); Chloride 98 mmol/L (98-107)
[2025-06-22] MEDS: FUROSEMIDE 40 MG TAB PO SCH (10:00)
[2025-06-22] MEDS: RIVAROXABAN 10 MG TAB PO SCH (11:26)
--- NOTE | 2025-06-22 12:27 | DVHPN2 ---
Reviewed: Care Plan, H&P, Labs, Medications, Previous Orders, Radiology Changes from previous H/P or p: No Changes Objective Vitals Vital Signs Date Time Temp Pulse Resp B/P (MAP) Pulse Ox O2 Delivery O2 Flow Rate FiO2 06/22/25 10:00 89 108/56 06/22/25 09:22 98.0 18 100 98.0 06/22/25 09:18 Nasal Cannula 4.0 06/22/25 09:18 36 Intake/Output Intake and Output 06/22/25 07:00 Intake Total 450 ml Output Total 651 ml Balance -201 ml Intake Oral 150 ml IV Total 300 ml Output Urine Total 650 ml Stool Total 1 ml # Voids 1 # Bowel Movements 2 Medications Current Medications Medications Dose Ordered Sig/Darshana Route Start Time Stop Time Status Last Admin Dose Admin Ceftriaxone Sodium 50 ml @ 100 mls/hr DAILY@09 IV 06/22/25 09:00 Azithromycin 250 ml @ 125 mls/hr DAILY IV 06/22/25 10:00 Albuterol 2.5 mg Q6HPRN PRN NEB 06/21/25 19:45 Rivaroxaban 10 mg DAILY PO 06/22/25 10:00 06/22/25 11:26 10 MG Levothyroxine Sodium 50 mcg QAM@0600 PO 06/22/25 06:00 06/22/25 06:01 50 MCG Sacubitril/ Valsartan 1 tab BID PO 06/21/25 22:00 Furosemide 40 mg DAILY PO 06/22/25 10:00 Atorvastatin Calcium 20 mg HS PO 06/21/25 22:00 06/22/25 00:06 20 MG Metoprolol Tartrate 25 mg BID PO 06/21/25 22:00 06/22/25 00:07 25 MG Carbamazepine 200 mg HS PO 06/21/25 22:00 06/22/25 00:06 200 MG Ondansetron HCl 4 mg Q4HP PRN IV 06/21/25 19:45 Acetaminophen 650 mg Q6HP PRN PO 06/21/25 19:45 06/22/25 11:26 650 MG Nitroglycerin 0.4 mg Q5MINP PRN SL 06/21/25 19:45 Morphine Sulfate 2 mg Q30M PRN IV 06/21/25 20:45 Laboratory Results Laboratory Tests 06/22/25 06:15 Chemistry Test 06/21/25 13:04 06/22/25 06:15 Calcium Level 9.0 mg/dL (8.7-10.4) 8.5 mg/dL (8.7-10.4) L Cardiac Markers Test 06/21/25 13:04 B-Type Natriuretic Peptide 200.77 pg/mL (0-100) HgA1c, TSH Test 06/21/25 16:24 Thyroid Stimulating Hormone (TSH) 2.75 uIU/mL (0.55-4.78) Urinalysis Test 06/21/25 22:03 Urine Color Light-red (Yellow) Urine Clarity Ex.turbid (Clear) Urine pH 5.5 (5.0-9.0) Urine Specific [place] 1.015 (1.001-1.035) Urine Protein 1+ (Negative) H Urine Ketones Negative (Negative) Urine Blood 3+ /uL (Negative) H Urine Nitrite Negative (Negative) Urine Bilirubin Negative (Negative) Urine Urobilinogen Normal mg/dL (Negative) Urine Leukocyte Esterase 2+ /uL (Negative) Urine RBC 5197 /hpf (0 - 4) Urine Microscopic WBC 51 /HPF (0-5) H Urine Squamous Epithelial Cells Few /hpf (<5) Urine Bacteria Few /hpf (None Seen) H Urine Hyaline Casts Few /lpf (0 - 2) Urine Mucus Few (None Seen) Urine Glucose Normal mg/dL (Normal) Microbiology Microbiology Date/Time Source Procedure Growth Status 06/21/25 15:20 Urine - [place] Urine Culture - Preliminary Resulted Labs and/or images reviewed: Labs reviewed by me, Image(s) reviewed by me Assessment/Plan Assessment/Plan Chest pain rule out coronary artery disease: Troponin negative x3 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 Sepsis secondary community-acquired pneumonia Gram-positive versus Gram- negative: Rocephin azithromycin Flu test pending [place] test pending Acute urinary tract infection: Urine cultures negative blood cultures pending, continue Rocephin AFib with RVR with secondary hypercoagulable state Pacemaker Hypothyroidism History of lumbar radiculopathy Multiple joint arthritis Time spent 65 minutes Advanced care planning time 20 minutes Patient is full code Plan discussed with: Patient Date of Service: Jun 22, 2025 Billing Provider: SANDIE YUN MD Common Visit Codes: [id number] CARE 30-74 MIN SANDIE YUN MD Jun 22, 2025 12:27
[2025-06-22] MEDS: AZITHROMYCIN 500MG/ 250ML 250 ML IV SCH (15:41)
[2025-06-23] VITALS (7 sets, daily range): BP systolic 96–110; BP diastolic 65–71; PULSE 63–98; RESP 16–20; TEMP 97.7–98.3; O2SAT 94–100
[2025-06-23 06:15] LABS: COVID19 ANTIGEN SOFIA FIA NEGATIVE (NEGATIVE)
[2025-06-23] MEDS: ONDANSETRON HCL 4 MG/2 ML VIAL IV PRN (10:41)
--- NOTE | 2025-06-23 11:09 | DVHPN2 ---
Reviewed: Care Plan, H&P, Labs, Medications, Previous Orders, Radiology Changes from previous H/P or p: No Changes Objective Vitals Vital Signs Date Time Temp Pulse Resp B/P (MAP) Pulse Ox O2 Delivery O2 Flow Rate FiO2 06/23/25 10:32 83 122/72 06/23/25 09:00 97.7 18 96 97.7 06/23/25 08:07 Room Air 0.0 06/23/25 08:07 21 Intake/Output Intake and Output 06/23/25 07:00 Intake Total 1550 ml Output Total 1200 ml Balance 350 ml Intake Oral 1500 ml IV Total 50 ml Output Urine Total 1200 ml Medications Current Medications Medications Dose Ordered Sig/Darshana Route Start Time Stop Time Status Last Admin Dose Admin Ceftriaxone Sodium 50 ml @ 100 mls/hr DAILY@09 IV 06/22/25 09:00 06/23/25 10:29 100 MLS/HR Azithromycin 250 ml @ 125 mls/hr DAILY IV 06/22/25 10:00 06/23/25 10:29 125 MLS/HR Albuterol 2.5 mg Q6HPRN PRN NEB 06/21/25 19:45 Rivaroxaban 10 mg DAILY PO 06/22/25 10:00 06/23/25 10:32 10 MG Levothyroxine Sodium 50 mcg QAM@0600 PO 06/22/25 06:00 06/22/25 06:01 50 MCG Sacubitril/ Valsartan 1 tab BID PO 06/21/25 22:00 Furosemide 40 mg DAILY PO 06/22/25 10:00 06/23/25 10:31 40 MG Atorvastatin Calcium 20 mg HS PO 06/21/25 22:00 06/22/25 22:00 20 MG Metoprolol Tartrate 25 mg BID PO 06/21/25 22:00 06/23/25 10:32 25 MG Carbamazepine 200 mg HS PO 06/21/25 22:00 06/22/25 22:00 200 MG Ondansetron HCl 4 mg Q4HP PRN IV 06/21/25 19:45 06/23/25 10:41 4 MG Acetaminophen 650 mg Q6HP PRN PO 06/21/25 19:45 06/23/25 10:33 650 MG Nitroglycerin 0.4 mg Q5MINP PRN SL 06/21/25 19:45 Morphine Sulfate 2 mg Q30M PRN IV 06/21/25 20:45 Laboratory Results Laboratory Tests 06/22/25 06:15 Urinalysis Test 06/21/25 22:03 Urine Color Light-red (Yellow) Urine Clarity Ex.turbid (Clear) Urine pH 5.5 (5.0-9.0) Urine Specific [place] 1.015 (1.001-1.035) Urine Protein 1+ (Negative) H Urine Ketones Negative (Negative) Urine Blood 3+ /uL (Negative) H Urine Nitrite Negative (Negative) Urine Bilirubin Negative (Negative) Urine Urobilinogen Normal mg/dL (Negative) Urine Leukocyte Esterase 2+ /uL (Negative) Urine RBC 5197 /hpf (0 - 4) Urine Microscopic WBC 51 /HPF (0-5) H Urine Squamous Epithelial Cells Few /hpf (<5) Urine Bacteria Few /hpf (None Seen) H Urine Hyaline Casts Few /lpf (0 - 2) Urine Mucus Few (None Seen) Urine Glucose Normal mg/dL (Normal) Microbiology Microbiology Date/Time Source Procedure Growth Status 06/22/25 06:07 Nose MRSA Screen - Final Complete 06/21/25 17:31 Blood Blood Culture - Preliminary NO GROWTH AFTER 24 HOURS OF INCUBATION. 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 Sepsis secondary community-acquired pneumonia Gram-positive versus Gram- negative: Rocephin azithromycin Flu Test negative [place] test neg Acute urinary tract infection: Urine cultures negative blood cultures negative, continue Rocephin AFib with RVR with secondary hypercoagulable state Pacemaker Anxiety: Continue home medication BuSpar 10 mg PO TID Hypothyroidism History of lumbar radiculopathy Polyarthritis Time spent 65 minutes Advanced care planning time 20 minutes Patient is full code Plan discussed with: Patient My Orders Orders - SANDIE YUN MD Procedure Category Date Status Time * Cardiology Consult CONS 06/22/25 Transmitted 12:35 Date of Service: Jun 23, 2025 Billing Provider: SANDIE YUN MD Common Visit Codes: [id number] INP/OBS CARE(HIGH) SANDIE YUN MD Jun 23, 2025 11:09
--- NOTE | 2025-06-23 13:45 | DVHPN2 ---
Progress Note - Dictate Date Seen: Jun 21, 2025 Medical Necessity Reason Pt with a Central, PICC or Fol: Yes The following are medically ne: [place] Catheter Subjective PT WAS SEEN IN THE EMERGENCY ROOM COMPLAINING ABOUT CHEST PAIN TROPONIN NEGATIEV ECG NEGATIVE PMH HEMATURIA NEPHROLITHIASIS DYSURIA UTI REACTIVE AIRWAY METABOLIC SYNDROME HTN HFpEF HYPOTHROID SSS S/P PPI AFIB HYPERCOAGULABLE STATE RECENT BLADDER RECONSTRUCTIVE SURGERY FOR URINARY INCONTINENCE KIMBERLYN vital signs Vital Sign Date Time Temp Pulse Resp B/P (MAP) Pulse Ox O2 Delivery O2 Flow Rate FiO2 06/23/25 13:00 98.3 63 16 110/71 (84) 95 98.3 06/23/25 08:07 Room Air 0.0 06/23/25 08:07 21 Total Intake and Output 06/22/25 06/22/25 06/23/25 15:00 23:00 07:00 Intake Total 1370 ml 180 ml Output Total 700 ml 500 ml Balance 670 ml -320 ml medications Current Medications Medications Dose Ordered Sig/Darshana Route Start Time Stop Time Status Last Admin Dose Admin Ceftriaxone Sodium 50 ml @ 100 mls/hr DAILY@09 IV 06/22/25 09:00 06/23/25 10:29 100 MLS/HR Azithromycin 250 ml @ 125 mls/hr DAILY IV 06/22/25 10:00 06/23/25 10:29 125 MLS/HR Albuterol 2.5 mg Q6HPRN PRN NEB 06/21/25 19:45 Rivaroxaban 10 mg DAILY PO 06/22/25 10:00 06/23/25 10:32 10 MG Levothyroxine Sodium 50 mcg QAM@0600 PO 06/22/25 06:00 06/22/25 06:01 50 MCG Sacubitril/ Valsartan 1 tab BID PO 06/21/25 22:00 Furosemide 40 mg DAILY PO 06/22/25 10:00 06/23/25 10:31 40 MG Atorvastatin Calcium 20 mg HS PO 06/21/25 22:00 06/22/25 22:00 20 MG Metoprolol Tartrate 25 mg BID PO 06/21/25 22:00 06/23/25 10:32 25 MG Carbamazepine 200 mg HS PO 06/21/25 22:00 06/22/25 22:00 200 MG Ondansetron HCl 4 mg Q4HP PRN IV 06/21/25 19:45 06/23/25 10:41 4 MG Acetaminophen 650 mg Q6HP PRN PO 06/21/25 19:45 06/23/25 10:33 650 MG Nitroglycerin 0.4 mg Q5MINP PRN SL 06/21/25 19:45 Morphine Sulfate 2 mg Q30M PRN IV 06/21/25 20:45 Buspirone HCl 10 mg TID PO 06/23/25 14:00 Acetaminophen/ Hydrocodone Bitart 1 tab Q4HPRN PRN PO 06/23/25 12:30 laboratory and microbiology Laboratory Tests 06/22/25 06:15 Test 06/22/25 06:15 Range/Units Serum Glucose 99 74-106 mg/dL Problem List SEEN IN THE EMERGENCY ROOM COMPLAINING ABOUT CHEST PAIN TROPONIN NEGATIEV ECG NEGATIVE PMH HEMATURIA NEPHROLITHIASIS DYSURIA UTI REACTIVE AIRWAY METABOLIC SYNDROME HTN HFpEF HYPOTHROID SSS S/P PPI AFIB HYPERCOAGULABLE STATE RECENT BLADDER RECONSTRUCTIVE SURGERY FOR URINARY INCONTINENCE KIMBERLYN Assessment/Plan HEMATURIA WITH LEUKOCYTOSIS BILATERAL PATCHY INFILTARTE CTA CHEST RULE OUT PE AND PNEUMONIA Plan discussed with: Patient GUILLERMO ALDANA MD Jun 23, 2025 13:45
[2025-06-23] MEDS: HYDROcodone-ACET 5/325MG TAB PO PRN (14:25)
[2025-06-23] MEDS: HYDROmorphone HCL 2 MG/ML VL/or syr IV PRN (23:04)
[2025-06-23 23:47] LABS: Alanine Aminotransferase 15 U/L (7-40); Albumin 3.8 g/dL (3.2-4.8); Alkaline Phosphatase 85 U/L (46-116); Anion Gap 10 (5-15); BUN/Creatinine Ratio 21.8 (10.0-20.0); Bilirubin, Total 0.4 mg/dL (0.2-1.0); Blood Urea Nitrogen 22 mg/dL (9-23); Calcium 8.9 mg/dL (8.7-10.4); Glucose 103 mg/dL (74-106); Magnesium 2.0 mg/dL (1.6-2.6); Potassium 3.8 mmol/L (3.5-5.1); Sodium 140 mmol/L (136-145); Total Protein 6.9 g/dL (5.7-8.2)
[2025-06-23 23:48] LABS: Carbon Dioxide 33 mmol/L (20-31); Chloride 97 mmol/L (98-107)
[2025-06-24] VITALS (12 sets, daily range): BP systolic 94–113; BP diastolic 48–58; PULSE 77–114; RESP 16–20; TEMP 97.5–98.4; O2SAT 93–99
[2025-06-24 00:09] LABS: INR 1.16 (0.9-1.15); Partial Thromboplastin Time 30.1 SEC (24.5-34.5); Prothrombin Time 12.1 sec (9.3-11.8)
--- NOTE | 2025-06-24 08:29 | DVH ---
CHEST RADIOGRAPH Indication: CHEST PAIN Technique: Single frontal view of the chest was obtained COMPARISON: XY CHEST PORTABLE on DOS: 06/21/25, XY CHEST XRAY 1 VIEW on DOS: 03/15/25, XR CHEST 1 VIEW o n DOS: 07/19/23, CXR2 on DOS: 08/22/22, CHEST TWO VIEWS ROUTINE on DOS: 08/22/22 FINDINGS: Left chest wall pacemaker. Cardiomegaly. Pulmonary vascular congestion. The lungs are clear. The pleu ra shows no effusion. There is no pneumothorax. The cardiomediastinal contours are unremarkable. The bones are unremarkable. IMPRESSION: Cardiomegaly with pulmonary vascular congestion.
[2025-06-24 10:44] LABS: Hematocrit 44.8 % (36.0-46.0); Hemoglobin 14.4 g/dL (12.2-16.2); Mean Corpuscular Hemoglobin 29.7 pg (28.0-32.0); Mean Corpuscular Volume 92.2 fL (80.0-100.0); Nucleated Red Blood Cells % 0.1 %
[2025-06-24] MEDS ORDERED: HYDR2TAB58 PO (12:08)
[2025-06-24] MEDS ORDERED: AZIT500T66 PO (12:08)
[2025-06-24] MEDS ORDERED: HYDR-4798 PO (12:12)
--- NOTE | 2025-06-24 12:20 | DVHPN2 ---
Reviewed: Care Plan, H&P, Labs, Medications, Previous Orders, Radiology Changes from previous H/P or p: No Changes Objective Vitals Vital Signs Date Time Temp Pulse Resp B/P (MAP) Pulse Ox O2 Delivery O2 Flow Rate FiO2 06/24/25 11:00 82 94/62 06/24/25 08:39 98.2 18 96 98.2 06/24/25 05:35 Nasal Cannula 4.0 06/24/25 05:35 36 Intake/Output Intake and Output 06/24/25 07:00 Intake Total 1310 ml Output Total 925 ml Balance 385 ml Intake Oral 1010 ml IV Total 300 ml Output Urine Total 925 ml # Bowel Movements 1 Medications Current Medications Medications Dose Ordered Sig/Darshana Route Start Time Stop Time Status Last Admin Dose Admin Ceftriaxone Sodium 50 ml @ 100 mls/hr DAILY@09 IV 06/22/25 09:00 06/24/25 09:22 100 MLS/HR Azithromycin 250 ml @ 125 mls/hr DAILY IV 06/22/25 10:00 06/24/25 09:22 125 MLS/HR Albuterol 2.5 mg Q6HPRN PRN NEB 06/21/25 19:45 Rivaroxaban 10 mg DAILY PO 06/22/25 10:00 06/24/25 10:01 10 MG Levothyroxine Sodium 50 mcg QAM@0600 PO 06/22/25 06:00 06/24/25 05:13 50 MCG Sacubitril/ Valsartan 1 tab BID PO 06/21/25 22:00 06/24/25 09:51 1 TAB Furosemide 40 mg DAILY PO 06/22/25 10:00 06/24/25 09:59 40 MG Atorvastatin Calcium 20 mg HS PO 06/21/25 22:00 06/23/25 21:16 20 MG Metoprolol Tartrate 25 mg BID PO 06/21/25 22:00 06/24/25 10:00 25 MG Carbamazepine 200 mg HS PO 06/21/25 22:00 06/23/25 21:15 200 MG Ondansetron HCl 4 mg Q4HP PRN IV 06/21/25 19:45 06/23/25 22:57 4 MG Acetaminophen 650 mg Q6HP PRN PO 06/21/25 19:45 06/23/25 21:35 650 MG Nitroglycerin 0.4 mg Q5MINP PRN SL 06/21/25 19:45 Morphine Sulfate 2 mg Q30M PRN IV 06/21/25 20:45 Buspirone HCl 10 mg TID PO 06/23/25 14:00 06/24/25 05:13 10 MG Acetaminophen/ Hydrocodone Bitart 1 tab Q4HPRN PRN PO 06/23/25 12:30 06/23/25 22:44 1 TAB Hydromorphone HCl 0.5 mg Q3HPRN PRN IV 06/23/25 23:00 06/23/25 23:04 0.5 MG Laboratory Results Laboratory Tests 06/23/25 23:15 06/24/25 10:22 Chemistry Test 06/23/25 23:15 Albumin 3.8 g/dL (3.2-4.8) Calcium Level 8.9 mg/dL (8.7-10.4) Magnesium Level 2.0 mg/dL (1.6-2.6) Phosphorus Level 3.6 mg/dL (2.4-5.1) Total Protein 6.9 g/dL (5.7-8.2) Coagulation Test 06/23/25 23:15 Prothrombin Time 12.1 sec (9.3-11.8) H Prothrombin Time INR 1.16 (0.9-1.15) H Activated Partial Thromboplast Time 30.1 SEC (24.5-34.5) LFT Test 06/23/25 23:15 Alanine Aminotransferase (ALT) 15 U/L (7-40) Alkaline Phosphatase 85 U/L (46-116) Aspartate Amino Transferase (AST) 17 U/L (13-40) Total Bilirubin 0.4 mg/dL (0.2-1.0) Urinalysis Test 06/21/25 22:03 Urine Color Light-red (Yellow) Urine Clarity Ex.turbid (Clear) Urine pH 5.5 (5.0-9.0) Urine Specific [place] 1.015 (1.001-1.035) Urine Protein 1+ (Negative) H Urine Ketones Negative (Negative) Urine Blood 3+ /uL (Negative) H Urine Nitrite Negative (Negative) Urine Bilirubin Negative (Negative) Urine Urobilinogen Normal mg/dL (Negative) Urine Leukocyte Esterase 2+ /uL (Negative) Urine RBC 5197 /hpf (0 - 4) Urine Microscopic WBC 51 /HPF (0-5) H Urine Squamous Epithelial Cells Few /hpf (<5) Urine Bacteria Few /hpf (None Seen) H Urine Hyaline Casts Few /lpf (0 - 2) Urine Mucus Few (None Seen) Urine Glucose Normal mg/dL (Normal) Microbiology Microbiology Date/Time Source Procedure Growth Status 06/22/25 06:07 Nose MRSA Screen - Final Complete 06/21/25 17:31 Blood Blood Culture - Preliminary NO GROWTH AFTER 48 HOURS OF INCUBATION. 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 Rader Sepsis secondary community-acquired pneumonia Gram-positive versus Gram- negative: Rocephin azithromycin Flu Test negative [place] test neg Acute urinary tract infection: Urine cultures negative blood cultures negative, continue Rocephin AFib with RVR with secondary hypercoagulable state Pacemaker Anxiety: Continue home medication BuSpar 10 mg PO TID Hypothyroidism History of lumbar radiculopathy Polyarthritis Time spent 55 minutes Advanced care planning time 20 minutes Patient requesting to be discharged home today on hospice Plan discussed with: Patient My Orders Orders - SANDIE YUN MD Procedure Category Date Status Time Hydrocodone-Acet PHA 06/23/25 In Process 5/325mg Tab ([place] 12:30 * Cable Operator CONS 06/24/25 Transmitted Consult Refer To Hospice [facility] 06/24/25 Transmitted 12:19 Date of Service: Jun 24, 2025 Billing Provider: SANDIE YUN MD Common Visit Codes: [id number] INP/OBS CARE(HIGH) SANDIE YUN MD Jun 24, 2025 12:20
--- NOTE | 2025-06-24 12:25 | DVHPN2 ---
Reviewed: Care Plan, H&P, Labs, Medications, Previous Orders, Radiology Changes from previous H/P or p: No Changes Objective Vitals Vital Signs Date Time Temp Pulse Resp B/P (MAP) Pulse Ox O2 Delivery O2 Flow Rate FiO2 06/24/25 11:00 82 94/62 06/24/25 08:39 98.2 18 96 98.2 06/24/25 05:35 Nasal Cannula 4.0 06/24/25 05:35 36 Intake/Output Intake and Output 06/24/25 06:59 Intake Total 1310 ml Output Total 925 ml Balance 385 ml Intake Oral 1010 ml IV Total 300 ml Output Urine Total 925 ml # Bowel Movements 1 Medications Current Medications Medications Dose Ordered Sig/Darshana Route Start Time Stop Time Status Last Admin Dose Admin Ceftriaxone Sodium 50 ml @ 100 mls/hr DAILY@09 IV 06/22/25 09:00 06/24/25 09:22 100 MLS/HR Azithromycin 250 ml @ 125 mls/hr DAILY IV 06/22/25 10:00 06/24/25 09:22 125 MLS/HR Albuterol 2.5 mg Q6HPRN PRN NEB 06/21/25 19:45 Rivaroxaban 10 mg DAILY PO 06/22/25 10:00 06/24/25 10:01 10 MG Levothyroxine Sodium 50 mcg QAM@0600 PO 06/22/25 06:00 06/24/25 05:13 50 MCG Sacubitril/ Valsartan 1 tab BID PO 06/21/25 22:00 06/24/25 09:51 1 TAB Furosemide 40 mg DAILY PO 06/22/25 10:00 06/24/25 09:59 40 MG Atorvastatin Calcium 20 mg HS PO 06/21/25 22:00 06/23/25 21:16 20 MG Metoprolol Tartrate 25 mg BID PO 06/21/25 22:00 06/24/25 10:00 25 MG Carbamazepine 200 mg HS PO 06/21/25 22:00 06/23/25 21:15 200 MG Ondansetron HCl 4 mg Q4HP PRN IV 06/21/25 19:45 06/23/25 22:57 4 MG Acetaminophen 650 mg Q6HP PRN PO 06/21/25 19:45 06/23/25 21:35 650 MG Nitroglycerin 0.4 mg Q5MINP PRN SL 06/21/25 19:45 Morphine Sulfate 2 mg Q30M PRN IV 06/21/25 20:45 Buspirone HCl 10 mg TID PO 06/23/25 14:00 06/24/25 05:13 10 MG Acetaminophen/ Hydrocodone Bitart 1 tab Q4HPRN PRN PO 06/23/25 12:30 06/23/25 22:44 1 TAB Hydromorphone HCl 0.5 mg Q3HPRN PRN IV 06/23/25 23:00 06/23/25 23:04 0.5 MG Laboratory Results Laboratory Tests 06/23/25 23:15 06/24/25 10:22 Chemistry Test 06/23/25 23:15 Albumin 3.8 g/dL (3.2-4.8) Calcium Level 8.9 mg/dL (8.7-10.4) Magnesium Level 2.0 mg/dL (1.6-2.6) Phosphorus Level 3.6 mg/dL (2.4-5.1) Total Protein 6.9 g/dL (5.7-8.2) Coagulation Test 06/23/25 23:15 Prothrombin Time 12.1 sec (9.3-11.8) H Prothrombin Time INR 1.16 (0.9-1.15) H Activated Partial Thromboplast Time 30.1 SEC (24.5-34.5) LFT Test 06/23/25 23:15 Alanine Aminotransferase (ALT) 15 U/L (7-40) Alkaline Phosphatase 85 U/L (46-116) Aspartate Amino Transferase (AST) 17 U/L (13-40) Total Bilirubin 0.4 mg/dL (0.2-1.0) Urinalysis Test 06/21/25 22:03 Urine Color Light-red (Yellow) Urine Clarity Ex.turbid (Clear) Urine pH 5.5 (5.0-9.0) Urine Specific [place] 1.015 (1.001-1.035) Urine Protein 1+ (Negative) H Urine Ketones Negative (Negative) Urine Blood 3+ /uL (Negative) H Urine Nitrite Negative (Negative) Urine Bilirubin Negative (Negative) Urine Urobilinogen Normal mg/dL (Negative) Urine Leukocyte Esterase 2+ /uL (Negative) Urine RBC 5197 /hpf (0 - 4) Urine Microscopic WBC 51 /HPF (0-5) H Urine Squamous Epithelial Cells Few /hpf (<5) Urine Bacteria Few /hpf (None Seen) H Urine Hyaline Casts Few /lpf (0 - 2) Urine Mucus Few (None Seen) Urine Glucose Normal mg/dL (Normal) Microbiology Microbiology Date/Time Source Procedure Growth Status 06/22/25 06:07 Nose MRSA Screen - Final Complete 06/21/25 17:31 Blood Blood Culture - Preliminary NO GROWTH AFTER 48 HOURS OF INCUBATION. 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 Sepsis secondary community-acquired pneumonia Gram-positive versus Gram- negative: Rocephin azithromycin Flu Test negative [place] test neg Acute urinary tract infection: Urine cultures negative blood cultures negative, continue Rocephin AFib with RVR with secondary hypercoagulable state Pacemaker Anxiety: Continue home medication BuSpar 10 mg PO TID Hypothyroidism History of lumbar radiculopathy Polyarthritis Time spent 55 minutes Advanced care planning time 20 minutes Patient requesting to be discharged home today on hospice Plan discussed with: Patient My Orders Orders - SANDIE YUN MD Procedure Category Date Status Time Hydrocodone-Acet PHA 06/23/25 In Process 5/325mg Tab ([place] 12:30 * Hospice Bereavement Coordinator CONS 06/24/25 Transmitted Consult Refer To Hospice [facility] 06/24/25 In Process 12:19 Date of Service: Jun 24, 2025 Billing Provider: SANDIE YUN MD Common Visit Codes: [id number] INP/OBS CARE(HIGH) SANDIE YUN MD Jun 24, 2025 12:25
--- NOTE | 2025-06-24 12:30 | DVHDS2 ---
Discharge Summary Date of Admission Jun 21, 2025 at 19:38 Date of Discharge: Jun 24, 2025 Admitting Diagnosis Shortness of breath, chest pain Wounds: none Labs/Diagnostic Data: Laboratory Results Test 06/24/25 10:22 06/23/25 23:15 06/22/25 03:00 06/21/25 22:03 White Blood Count 11.9 10^3/uL (4.4-10.8) Red Blood Count 4.86 10^6/uL (4.0-5.20) Hemoglobin 14.4 g/dL (12.2-16.2) Hematocrit 44.8 % (36.0-46.0) Mean Corpuscular Volume 92.2 fL (80.0-100.0) Mean Corpuscular Hemoglobin 29.7 pg (28.0-32.0) Mean Corpuscular Hemoglobin Concent 32.2 g/dL (32.0-36.0) Red Cell Distribution Width 13.8 % (11.8-14.3) Platelet Count 260 10^3/uL (140-450) Mean Platelet Volume 7.9 fL (6.9-10.8) Neutrophils (%) (Auto) 69.3 % (37.0-80.0) Lymphocytes (%) (Auto) 17.9 % (10.0-50.0) Monocytes (%) (Auto) 10.0 % (0.0-12.0) Eosinophils (%) (Auto) 2.0 % (0.0-7.0) Basophils (%) (Auto) 0.8 % (0.0-2.0) Neutrophils # (Auto) 8.2 10 ^3/uL (1.6-8.6) Lymphocytes # (Auto) 2.1 10 ^3/uL (0.4-5.4) Monocytes # (Auto) 1.2 10 ^3/uL (0-1.3) Eosinophils # (Auto) 0.2 10 ^3/uL (0-0.8) Basophils # (Auto) 0.1 10 ^3/uL (0-0.2) Nucleated Red Blood Cells 0.1 % Troponin I High Sensitivity 5 ng/L (</=34) Prothrombin Time 12.1 sec (9.3-11.8) Prothrombin Time INR 1.16 (0.9-1.15) Activated Partial Thromboplast Time 30.1 SEC (24.5-34.5) Sodium Level 140 mmol/L (136-145) Potassium Level 3.8 mmol/L (3.5-5.1) Chloride Level 97 mmol/L (98-107) Carbon Dioxide Level 33 mmol/L (20-31) Anion Gap 10 (5-15) Blood Urea Nitrogen 22 mg/dL (9-23) Creatinine 1.01 mg/dL (0.550-1.02) Glomerular Filtration Rate Calc 59 mL/min (>90) BUN/Creatinine Ratio 21.8 (10.0-20.0) Serum Glucose 103 mg/dL (74-106) Calcium Level 8.9 mg/dL (8.7-10.4) Phosphorus Level 3.6 mg/dL (2.4-5.1) Magnesium Level 2.0 mg/dL (1.6-2.6) Total Bilirubin 0.4 mg/dL (0.2-1.0) Aspartate Amino Transferase (AST) 17 U/L (13-40) Alanine Aminotransferase (ALT) 15 U/L (7-40) Alkaline Phosphatase 85 U/L (46-116) Total Protein 6.9 g/dL (5.7-8.2) Albumin 3.8 g/dL (3.2-4.8) Influenza Type A Antigen Negative (Negative) Influenza Type B Antigen Negative (Negative) SARS-CoV-2 Antigen (Rapid) Negative (NEGATIVE) Urine Color Light-red (Yellow) Urine Clarity Ex.turbid (Clear) Urine pH 5.5 (5.0-9.0) Urine Specific [place] 1.015 (1.001-1.035) Urine Protein 1+ (Negative) Urine Ketones Negative (Negative) Urine Blood 3+ /uL (Negative) Urine Nitrite Negative (Negative) Urine Bilirubin Negative (Negative) Urine Urobilinogen Normal mg/dL (Negative) Urine Leukocyte Esterase 2+ /uL (Negative) Urine RBC 5197 /hpf (0 - 4) Urine Microscopic WBC 51 /HPF (0-5) Urine Squamous Epithelial Cells Few /hpf (<5) Urine Bacteria Few /hpf (None Seen) Urine Hyaline Casts Few /lpf (0 - 2) Urine Mucus Few (None Seen) Urine Glucose Normal mg/dL (Normal) Test 06/21/25 17:31 06/21/25 16:24 06/21/25 13:04 Lactic Acid Level 1.3 mmol/L (0.4-2.0) Thyroid Stimulating Hormone (TSH) 2.75 uIU/mL (0.55-4.78) B-Type Natriuretic Peptide 200.77 pg/mL (0-100) Other Laboratory Tests 06/24/25 10:22 06/23/25 23:15 Brief Hx & Hospital Course: 70-year-old female with a history of atrial fibrillation pacemaker anxiety hypothyroidism lumbar radiculopathy body arthritis came in for chest pain troponin negative x3 seen by Cardiology Dr. Carranza patient has sepsis secondary to community-acquired pneumonia treated with Rocephin azithromycin flu test negative [place] test negative patient also had UTI urine cultures negative blood cultures negative. Patient was treated with a BuSpar for anxiety which is her home medications Patient is requesting to be discharged home today on hospice. She is aware of hospice she was on hospice in the past. Discharged home today on hospice. Prescription for azithromycin [place] transmitted to pharmacy Consults/Reason for consult Cardiology Dr. 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 Rader Sepsis secondary community-acquired pneumonia Gram-positive versus Gram-negative: Rocephin azithromycin Flu Test negative [place] test neg Acute urinary tract infection: Urine cultures negative blood cultures negative, continue Rocephin AFib with RVR with secondary hypercoagulable state Pacemaker Anxiety: Continue home medication BuSpar 10 mg PO TID Hypothyroidism History of lumbar radiculopathy Polyarthritis Discharge Disposition: Hospice - Home Discharge Instruct/Medications Diet: Cardiac 2g Na,low cholest Activity: Light activity Follow Up/Referral: Follow up with the hospice Medications: Azithromycin [place] Transmitted to pharmacy Scheduled Azithromycin (Azithromycin), 1 TAB PO DAILY Buspirone HCl (Buspirone Hydrochloride), 10 MG PO TID, (Reported) Carbamazepine (Carbamazepine), 600 MG PO HS, (Reported) Carbamazepine (Tegretol), 200 MG PO DAILY, (Reported) Cephalexin ( Keflex 500), 1 CAP PO QID, (Reported) Cephalexin (Keflex Capsule), 500 MG PO BID Cholecalciferol (Vitamin D3), 2,000 UNIT OR DAILY, (Reported) Diphenhydramine Hcl (Diphenhydramine Hcl), 25 MG PO DAILYP, (Reported) Doxycycline (Monohydrate) (Doxycycline), 100 MG PO BID Famotidine (Famotidine), 20 MG PO BID, (Reported) Hydrocodone-Acetaminophen (Hydrocodone Bitartrate/AC 10-325 mg), 1 TAB PO QID Metolazone (Metolazone), 5 MG PO DAILY, (Reported) Metoprolol Tartrate (Metoprolol Tartrate), 25 MG PO BID, (Reported) Olmesartan Medoxomil-Hydrochlo (Benicar Hct), 1 TAB PO DAILY, (Reported) Ondansetron HCl (Ondansetron), 4 MG PO TID, (Reported) Rivaroxaban (Xarelto), 10 MG PO DAILY, (Reported) Sacubitril-Valsartan (Entresto 24-26 mg), 1 TAB PO BID, (Reported) Sertraline Hcl (Sertraline Hcl), 100 MG PO DAILY, (Reported) Simvastatin (Zocor), 20 MG PO HS, (Reported) Scheduled PRN Gabapentin (Gabapentin), 300 MG PO TID PRN for PAIN SCALE 1 THRU 6, (Reported) Miscellaneous Medications Omeprazole (Gnp Omeprazole), 20 MG PO, (Reported) 39 (Time taken for discharge summary 39 mts) Discharge Statement: "Patient was advised to return to the ER or call 911 if any headaches, dizziness, shortness of breath, chest pain, abdominal pain, bleeding, fevers, or worsening of medical condition. Patient was counseled about treatment plan, medications, possible side effects, patientverbalized understanding. All questions were answered to the best of my ability. 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 Rader Sepsis secondary community-acquired pneumonia Gram-positive versus Gram- negative: Rocephin azithromycin Flu Test negative [place] test neg Acute urinary tract infection: Urine cultures negative blood cultures negative, continue Rocephin AFib with RVR with secondary hypercoagulable state Pacemaker Anxiety: Continue home medication BuSpar 10 mg PO TID Hypothyroidism History of lumbar radiculopathy Polyarthritis Date of Service: Jun 24, 2025 Billing Provider: SANDIE YUN MD Common Visit Codes: [id number] DISCH DAY >30min SANDIE YUN MD Jun 24, 2025 12:30
[2025-06-24] MEDS: ALBUTEROL SULF 2.5 MG/0.5ML(0.5%) NEB SOLN NEB PRN (19:42)
[2025-06-25 01:00] VITALS: BP 112/68; PULSE 72; RESP 16; TEMP 97.7; O2SAT 96
[2025-06-25 05:00] VITALS: BP 91/52; PULSE 85; RESP 18; TEMP 98.1; O2SAT 99
[2025-06-25 08:10] VITALS: O2SAT 96
[2025-06-25 08:41] VITALS: BP 122/80; PULSE 86; RESP 18; TEMP 98.4; O2SAT 98
--- NOTE | 2025-06-25 09:49 | ECG ---
[facility] Test Date: 2025-06-23 Test Time: 22:57:57 Pat Name: KORY CAPONE [facility] Gender: F Union Organizer: sly : 1955 Requested By: PABLO HUMMEL Order Number: [id number] Reading MD: Lei Seo Measurements Intervals [place] Rate: 86 P: 0 GA: 0 QRS: 11 QRSD: 180 T: -64 QT: 395 QTc: 473 Interpretive Statements Incomplete analysis due to missing data in precordial lead(s) Afib/flut and V-paced complexes No further analysis attempted due to paced rhythm Artifact in lead(s) I,II,III,aVR,aVL,aVF and baseline wander in lead(s) V3 Missing lead(s): V6 Electronically Signed On 06-27-2025 15:04:51 PDT by Lei Seo Please click the below link to view image of tracing.
--- NOTE | 2025-06-25 09:49 | ECG ---
[facility] Test Date: 2025-06-23 Test Time: 22:56:05 Pat Name: KORY CAPONE Department: Room: [facility] Gender: F Payment Manager: sly : 1955 Requested By: PABLO HUMMEL Order Number: [id number] Reading MD: Lei Seo Measurements Intervals [place] Rate: 96 P: 0 DC: 0 QRS: 142 QRSD: 109 T: -71 QT: 335 QTc: 424 Interpretive Statements Atrial fibrillation Paired ventricular premature complexes Low voltage, precordial leads Probable RVH w/ secondary repol abnormality Minimal ST elevation, inferior leads Baseline wander in lead(s) I,III,aVL,V2,V3,V6 Electronically Signed On 06-27-2025 15:04:45 PDT by Lei Seo Please click the below link to view image of tracing.
[2025-06-25 11:52] VITALS: BP 106/74; PULSE 80; TEMP 36.9
[2025-06-25 12:31] VITALS: BP 99/56; PULSE 91; RESP 18; TEMP 98.1; O2SAT 96
--- NOTE | 2025-06-25 12:39 | DVHPN2 ---
Reviewed: Care Plan, H&P, Labs, Medications, Previous Orders, Radiology Changes from previous H/P or p: No Changes Objective Vitals Vital Signs Date Time Temp Pulse Resp B/P (MAP) Pulse Ox O2 Delivery O2 Flow Rate FiO2 06/25/25 12:31 98.1 91 18 99/56 (70) 96 98.1 06/25/25 08:10 Nasal Cannula* 4 36 Intake/Output Intake and Output 06/25/25 07:00 Intake Total 1930 ml Output Total 800 ml Balance 1130 ml Intake Oral 1630 ml IV Total 300 ml Output Urine Total 800 ml Medications Current Medications Medications Dose Ordered Sig/Darshana Route Start Time Stop Time Status Last Admin Dose Admin Ceftriaxone Sodium 50 ml @ 100 mls/hr DAILY@09 IV 06/22/25 09:00 06/24/25 09:22 100 MLS/HR Azithromycin 250 ml @ 125 mls/hr DAILY IV 06/22/25 10:00 06/24/25 09:22 125 MLS/HR Albuterol 2.5 mg Q6HPRN PRN NEB 06/21/25 19:45 06/24/25 19:42 2.5 MG Rivaroxaban 10 mg DAILY PO 06/22/25 10:00 06/25/25 09:26 10 MG Levothyroxine Sodium 50 mcg QAM@0600 PO 06/22/25 06:00 06/25/25 04:47 50 MCG Sacubitril/ Valsartan 1 tab BID PO 06/21/25 22:00 06/25/25 09:25 1 TAB Furosemide 40 mg DAILY PO 06/22/25 10:00 06/25/25 09:26 40 MG Atorvastatin Calcium 20 mg HS PO 06/21/25 22:00 06/24/25 21:31 20 MG Metoprolol Tartrate 25 mg BID PO 06/21/25 22:00 06/25/25 09:25 25 MG Carbamazepine 200 mg HS PO 06/21/25 22:00 06/24/25 21:30 200 MG Ondansetron HCl 4 mg Q4HP PRN IV 06/21/25 19:45 06/23/25 22:57 4 MG Acetaminophen 650 mg Q6HP PRN PO 06/21/25 19:45 06/23/25 21:35 650 MG Nitroglycerin 0.4 mg Q5MINP PRN SL 06/21/25 19:45 Morphine Sulfate 2 mg Q30M PRN IV 06/21/25 20:45 Buspirone HCl 10 mg TID PO 06/23/25 14:00 06/25/25 04:47 10 MG Acetaminophen/ Hydrocodone Bitart 1 tab Q4HPRN PRN PO 06/23/25 12:30 06/23/25 22:44 1 TAB Hydromorphone HCl 0.5 mg Q3HPRN PRN IV 06/23/25 23:00 06/23/25 23:04 0.5 MG Laboratory Results Laboratory Tests 06/23/25 23:15 06/24/25 10:22 Urinalysis Test 06/21/25 22:03 Urine Color Light-red (Yellow) Urine Clarity Ex.turbid (Clear) Urine pH 5.5 (5.0-9.0) Urine Specific [place] 1.015 (1.001-1.035) Urine Protein 1+ (Negative) H Urine Ketones Negative (Negative) Urine Blood 3+ /uL (Negative) H Urine Nitrite Negative (Negative) Urine Bilirubin Negative (Negative) Urine Urobilinogen Normal mg/dL (Negative) Urine Leukocyte Esterase 2+ /uL (Negative) Urine RBC 5197 /hpf (0 - 4) Urine Microscopic WBC 51 /HPF (0-5) H Urine Squamous Epithelial Cells Few /hpf (<5) Urine Bacteria Few /hpf (None Seen) H Urine Hyaline Casts Few /lpf (0 - 2) Urine Mucus Few (None Seen) Urine Glucose Normal mg/dL (Normal) Microbiology Microbiology Date/Time Source Procedure Growth Status 06/22/25 06:07 Nose MRSA Screen - Final Complete 06/21/25 17:31 Blood Blood Culture - Preliminary NO GROWTH AFTER 72 HOURS OF INCUBATION. 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 Rader Sepsis secondary community-acquired pneumonia Gram-positive versus Gram- negative: Rocephin azithromycin Flu Test negative [place] test neg Acute urinary tract infection: Urine cultures negative blood cultures negative, continue Rocephin AFib with RVR with secondary hypercoagulable state Pacemaker Anxiety: Continue home medication BuSpar 10 mg PO TID Hypothyroidism History of lumbar radiculopathy Polyarthritis Discharged home on hospice on 06/24/2025 Awaiting transportation by hospice agency Plan discussed with: Patient Date of Service: Jun 25, 2025 Billing Provider: SANDIE YUN MD Common Visit Codes: [id number] INP/OBS CARE(HIGH) SANDIE YUN MD Jun 25, 2025 12:39
--- NOTE | 2025-06-27 13:53 | DVHPN2 ---
Progress Note - Dictate Date Seen: Jun 24, 2025 Medical Necessity Reason Pt with a Central, PICC or Fol: Yes The following are medically ne: [place] Catheter Subjective PT WAS SEEN IN THE EMERGENCY ROOM COMPLAINING ABOUT CHEST PAIN TROPONIN NEGATIEV ECG NEGATIVE PMH HEMATURIA NEPHROLITHIASIS DYSURIA UTI REACTIVE AIRWAY METABOLIC SYNDROME HTN HFpEF HYPOTHROID SSS S/P PPI AFIB HYPERCOAGULABLE STATE RECENT BLADDER RECONSTRUCTIVE SURGERY FOR URINARY INCONTINENCE KIMBERLYN vital signs Vital Sign Date Time Temp Pulse Resp B/P (MAP) Pulse Ox O2 Delivery O2 Flow Rate FiO2 06/25/25 12:31 98.1 91 18 99/56 (70) 96 98.1 06/25/25 08:10 Nasal Cannula* 4 36 laboratory and microbiology Laboratory Tests 06/24/25 10:22 06/23/25 23:15 Test 06/23/25 23:15 Range/Units Serum Glucose 103 74-106 mg/dL Problem List SEEN IN THE EMERGENCY ROOM COMPLAINING ABOUT CHEST PAIN TROPONIN NEGATIEV ECG NEGATIVE PMH HEMATURIA NEPHROLITHIASIS DYSURIA UTI REACTIVE AIRWAY METABOLIC SYNDROME HTN HFpEF HYPOTHROID SSS S/P PPI AFIB HYPERCOAGULABLE STATE RECENT BLADDER RECONSTRUCTIVE SURGERY FOR URINARY INCONTINENCE KIMBERLYN Assessment/Plan HEMATURIA WITH LEUKOCYTOSIS BILATERAL PATCHY INFILTARTE CTA CHEST RULE OUT PE AND PNEUMONIA Plan discussed with: Patient GUILLERMO ALDANA MD Jun 27, 2025 13:53
== END 2025-06-25 15:12 | disposition hospice, home (50) | DRG 871 ==
LOC: ER 12:32 → EDBD 12:32 → OVERFLOW 19:38 → TELE-WESTW 19:47
PROVIDERS: ADMIT Family Medicine; ATTEND Family Medicine
DX: A41.59 Other Gram-negative sepsis (principal); J15.69 Pneumonia due to other Gram-negative bacteria; J15.9 Unspecified bacterial pneumonia; D68.69 Other thrombophilia; N39.0 Urinary tract infection, site not specified; J44.0 Chronic obstructive pulmonary disease with (acute) lower respiratory infection; I50.30 Unspecified diastolic (congestive) heart failure; R65.20 Severe sepsis without septic shock; I11.0 Hypertensive heart disease with heart failure; Z20.822 Contact with and (suspected) exposure to COVID-19; I95.9 Hypotension, unspecified; I48.91 Unspecified atrial fibrillation; E03.9 Hypothyroidism, unspecified; I25.10 Atherosclerotic heart disease of native coronary artery without angina pectoris; M54.16 Radiculopathy, lumbar region; M13.88 Other specified arthritis, other site; F41.9 Anxiety disorder, unspecified; E78.5 Hyperlipidemia, unspecified; G47.33 Obstructive sleep apnea (adult) (pediatric); M13.89 Other specified arthritis, multiple sites; Z88.1 Allergy status to other antibiotic agents; Z88.0 Allergy status to penicillin; Z88.8 Allergy status to other drugs, medicaments and biological substances; Z79.899 Other long term (current) drug therapy
CPT/HCPCS: 36415; 71045; 80048; 80053; 81001; 83605; 83735; 83880; 84100; 84443; 84484; 85025; 85610; 85730; 87040; 87081; 87086; 87426; 87804; 93005; 94640; 96365; 99291; G0378; J0692; J2405